=== PATIENT | male | born 2000 | race Caucasian/White ===

== ENCOUNTER 2022-03-07 17:00 | Emergency (ER) | payer OTHER, SELFPAY ==
--- NOTE | ~2022-03-07 | XR_ITS ---
EXAMINATION: XR ANKLE, RIGHT CLINICAL INFORMATION: Injury COMPARISON: None TECHNIQUE: AP, lateral, and mortise views of the right ankle. FINDINGS: There is soft tissue swelling around lateral malleolus. The bones and soft tissues are normal. No fracture. Alignment is anatomic. Joint spaces are maintained. No joint effusion. XR/XR ankle RT 2V IMPRESSION: No fracture or dislocation. Soft tissue swelling around lateral malleolus.
[2022-03-07 17:23] VITALS: BP 142/85; PULSE 79; RESP 18; TEMP 37.2; O2SAT 100; BMI 42.3
--- NOTE | 2022-03-07 18:12 | ED_ITS ---
HPI - Extremity Injury (Lower) General Chief Complaint: Extremity Injury, Lower Stated Complaint: R ankle INJ Time Seen by Provider: 03/07/22 18:04 Source: patient Mode of arrival: ambulatory Limitations: no limitations History of Present Illness HPI Narrative: 21-year-old male previously healthy here with right ankle pain after two inversion injuries yesterday while working. + swelling. No numbness, tingling, warmth or redness. No fevers or chills. Related Data Allergies Allergy/AdvReac Type Severity Reaction Status Date / Time Unable to Assess Allergy Verified 03/07/22 18:15 Review of Systems Review of Systems: Yes all other systems are reviewed and are negative Constitutional: Constitutional: Reports no additional constitutional complaints, Denies body ache(s), Denies chills, Denies fever(s), Denies heada katarina(s) and Denies weakness Eyes: Eyes: Reports no additional eye complaints and Denies change in vision ENT: Reports system reviewed and no additional complaints, except as documented, Denies dizziness, Denies headache(s), Denies nasal congestion, Denies nasal discharge and Denies neck pain Cardiovascular: Cardiovascular: Reports no additional cardiovascular complaints, Denies chest pain, Denies leg edema and Denies dyspnea Respiratory: Respiratory: Reports no additional respiratory complaints, Denies cough and Denies dyspnea Gastrointestinal: Gastrointestinal: Reports no additional gastrointestinal complaints, Denies abdominal pain, Denies diarrhea, Denies nausea and Denies vomiting Genitourinary: Genitourinary: Denies urinary incontinence Musculoskeletal: Musculoskeletal: Reports no additional musculoskeletal complaints, Denies back pain, Reports arthralgias, Reports joint swelling, Denies neck pain, Denies numbness and Denies tingling Integumentary/Breasts: Skin/Breast: Reports system reviewed and no additional complaints, except as docu and Denies rash Neurologic: Reports system reviewed and no additional complaints, except as documented, Denies Abnormal speech present, Denies dizziness, Denies headache(s), Denies numbness, Denies tingling and Denies weakness PMFSH Past Medical History Attestation statement: The following information was validated with the patient. Source: old records reviewed and nursing notes reviewed Social History Social History Advance Directives: No Advance Directives Information Provided: No Physical Exam Vital Signs: Vital Signs: Last Vital Signs Temp 98.9 F 03/07/22 17:23 Pulse 79 03/07/22 17:23 Resp 18 03/07/22 17:23 BP 142/85 H 03/07/22 17:23 Pulse Ox 100 03/07/22 17:23 O2 Del Method 03/07/22 17:23 BMI result Body Mass Index 42.3 Const: General: cooperative, healthy appearing, comfortable and no acute distress Orientation/consciousness: patient oriented x3 Limitations: no limitations HEENT: Head: Yes normal to inspection Ears: hearing grossly normal bilaterally General nose exam: Normal external nose present Face and sinus: Yes normal facial exam Mouth: Normal oral and palatal mucosa present Throat: Yes posterior oropharynx normal Eyes: General: appearance normal, both eyes and all related structures Pupils: Equal, round and reactive pupils present Neck: Neck: Yes normal visual inspection Chest: Chest palpation & inspection: normal inspection of the chest Resp: Effort & Inspection: normal respiratory effort Auscultation: clear to auscultation bilaterally Cardio: Rate: regular rate Rhythm: regular rhythm Peripheral pulses: Peripheral pulses 2+ throughout GI: Inspection: Yes normal to inspection Palpation (GI): Soft to palpation and nontender Auscultation: normal bowel sounds Back/Spine/Pelvis: Thoracic/Lumbar Spine: thoracic and lumbar spine normal to inspection Skin: General skin exam: no rashes or lesions noted Neuro: General: patient oriented x3, no focal motor deficits and normal sensation to monofilament Cranial nerves: Yes Equal, round and reactive pupils present Cognition (Neuro): normal cognition Speech: No Abnormal speech present Gait exam (Neuro): Normal gait present Motor exam (neuro): 5/5 motor strength present throughout Extrem: Other: There is swelling and tenderness to the lateral aspect of the right ankle. There is full range of motion. Neurovascular intact distally. Palpable DP and PT pulses. No foot pain. No posterior ankle pain. Negative Ruano sign General: Yes normal to inspection Course Course Course Narrative: X-ray show no acute finding. Likely sprain. Patient placed in air cast and given crutches for home. Reviewed rice. Reviewed worrisome signs and symptoms of when to return to the emergency department. Comfortable discharge home. MDM - Extremity Injury (Lower) MDM Narrative Medical decision making narrative: 21-year-old male here with right ankle pain after inversion injury yesterday. Will check x-rays Medical Records Attestation: I reviewed the patient's medical records. Lab Data Attestation: I reviewed the patient's lab results. Imaging Data Ankle x-ray: Attestation: I personally reviewed and interpreted this imaging study as follows: Radiologist's impression: Launch?Image [address] [address] XRay Report Signed Patient: Mahesh Lepe MR#: [id number] : 2000 Acct:[id number] Age/Sex: 21 / M ADM Date: 03/07/22 Loc: HO.ED Attending Dr: Ordering Physician: Generic ED Physician Date of Service: 03/07/22 Procedure(s): XR ankle RT 2V Accession Number(s): [id number] cc: Generic ED Physician~ EXAMINATION: XR ANKLE, RIGHT CLINICAL INFORMATION: Injury? COMPARISON: None? TECHNIQUE: AP, lateral, and mortise views of the right ankle. FINDINGS: There is soft tissue swelling around lateral malleolus. The bones and soft tissues are normal. No fracture. Alignment is anatomic. Joint spaces are maintained. No joint effusion.? XR/XR ankle RT 2V IMPRESSION: No fracture or dislocation. ? Soft tissue swelling around lateral malleolus. Procedures Procedure Narrative Procedure Narrative: Aircast and crutches Discharge Plan Discharge Clinical Impression: Ankle sprain and strain Patient Disposition: Home, Self-Care Instructions: Ankle Sprain (ED) Additional Instructions: Ice, elevation, rest Limit weight-bearing until able to bear weight without experiencing pain Take Motrin or Tylenol as needed for pain For persistent symptoms follow-up with work [facility] at [phone] Referrals: Physician,Unknown J [Primary Care Provider] - Stand Alone Forms: Work/School Release
== END 2022-03-07 19:19 | disposition home or self-care (01) ==
PROVIDERS: Emergency Provider Student in an Organized Health Care Education/Training Program
DX: S93.401A Sprain of unspecified ligament of right ankle, initial encounter (principal); X58.XXXA Exposure to other specified factors, initial encounter; Y93.9 Activity, unspecified; Y92.9 Unspecified place or not applicable; Y99.9 Unspecified external cause status
CPT/HCPCS: 73600; 99282; 99283

== ENCOUNTER 2024-04-02 00:46 | Emergency (ER) | payer MEDICAID, SELFPAY ==
[2024-04-02 00:50] VITALS: BP 129/66; PULSE 74; RESP 18; TEMP 36.8; O2SAT 98; BMI 46.2
[2024-04-02 01:08] LABS: MANUAL DIFF FLAG NO
[2024-04-02 01:09] LABS: Basophils Percent Auto 0.3 % (0-2); Eosinophils Absolute Auto 0.1 X10*3/uL (0.0-0.4); Eosinophils Percent Auto 1.1 % (0-4); Hematocrit 45.5 % (42.0-52.0); Hemoglobin 15.5 g/dl (14.0-18.0); Imm Gran Abs Auto 0.05 X10*3/uL (0.00-0.03); Imm Gran Pct Auto 0.4 % (0.0-0.4); Lymphocytes Absolute Auto 1.9 X10*3/uL (1.2-4.9); Lymphocytes Percent Auto 16.2 % (20-40); Mean Corpuscular HGB Conc 34.1 g/dl (31.0-36.0); Mean Corpuscular Hemoglobin 28.9 pg (27.0-33.0); Mean Corpuscular Volume 84.9 fL (80.0-98.0); Mean Platelet Volume 9.7 fL (9.4-12.4); Monocytes Absolute Auto 0.6 X10*3/uL (0.1-1.2); Monocytes Percent Auto 5.2 % (2-11); Neutrophils Absolute Auto 8.8 x10*3/uL (2.0-8.3); Neutrophils Percent Auto 76.8 % (45-73); Platelet Count 322 X10*3/uL (160-400); Red Blood Count 5.36 X10*6/uL (4.60-5.80); Red Cell Distribution Width 11.9 % (11.0-16.0); White Blood Count 11.4 X10*3/uL (4.8-10.8)
[2024-04-02 01:18] LABS: Appearance Urine Clear; Color Urine Yellow; Glucose Urine UA Negative (Negative); Leukocyte Esterase Urine Negative (Negative); Nitrite Urine Negative (Negative); PH 7.5 (5.0-9.0); Specific Gravity - Urine 1.025 (1.005-1.025); Urine Blood Negative (Negative); Urine Ketones Negative (Negative); Urine Protein Trace mg/dL (Neg-Trace)
[2024-04-02 01:20] LABS: Bacteria Urine None Seen (None Seen); Hyaline Casts Urine 0-2 /LPF (0-2); RBC Urine 0-2 /HPF (0-2); Squamous Epithelial Cell Urine 0-2 /HPF (0-2); WBC Urine 0-5 /HPF (0-5)
[2024-04-02 01:25] LABS: Alanine Aminotransferase 36 U/L (0-40); Albumin Level 4.3 g/dL (3.5-5.0); Alkaline Phosphatase 73 U/L (39-117); Anion Gap 15 (12-20); Aspartate Amino Transferase 19 U/L (5-37); Bilirubin Total 0.3 mg/dL (0.0-1.0); Blood Urea Nitrogen 12 mg/dL (9-16); Calcium 9.2 mg/dL (8.4-10.2); Carbon Dioxide 23 mmol/L (22-29); Chloride 107 mmol/L (96-108); Creatinine Clr Calc Pharmacy 205.9; Estimated Glomerular Filt Rate > 60; Glucose Random 97 mg/dL (60-115); Lipase 19 U/L (8-78); Potassium 3.4 mmol/L (3.3-5.1); Sodium 142 mmol/L (135-145)
[2024-04-02 02:19] VITALS: BP 140/73; PULSE 63; RESP 14; TEMP 36.8; O2SAT 98
--- NOTE | 2024-04-02 02:31 | ED.NAVMDI ---
HPI - Nausea/Vomiting/Diarrhea General Chief complaint: Abdominal Pain Stated complaint: throwing up blood Time Seen by Provider: 04/02/24 02:17 Source: patient Mode of arrival: ambulatory Limitations: no limitations History of Present Illness ED Provider: RENATA MONK Narrative: 23 yo male with no sig PMH other than self diagnosed vomiting/diarrhea that is brought on by stress of any kind. He notes he felt weak, dizzy this AM not himself had multiple episodes of n/v/d that is not unusual for him. He then noted dark blood in vomit x 1 after he had been vomiting for a while. He has not had this before. He takes no thinners or NSAIDs. He does not have a PCP. He is not on antacids. MD elicited complaint: nausea, vomiting and diarrhea Pertinent past history: other Onset (ago): day(s) (1) Description of vomiting: watery and coffee grounds Description of diarrhea: watery Associated nausea: Yes Location of pain: none Severity: moderate Exacerbating factors: eating Relieving factors: none Context: other (similar episodes) Associated symptoms: loss of appetite, malaise, nausea/vomiting and weakness Treatment prior to arrival: other (tried pepto bismol without relief) Related Data Previous Rx's ?Medication ?Instructions ?Recorded omeprazole 20 mg capsule,delayed 20 mg PO DAILY #14 caps 04/02/24 release ondansetron 4 mg disintegrating 4 mg PO Q8H PRN nausea and 04/02/24 tablet vomiting #20 tabs Allergies Allergy/AdvReac Type Severity Reaction Status Date / Time No Known Allergies Allergy Verified 04/02/24 00:54 Review of Systems Review of Systems: Constitutional : No Weight loss, No Fever, No Chills ENT/Mouth : No sore throat, No Rhinorrhea Eyes: No Swelling, No Redness Cardiovascular : No Chest Pain, No SOB, NoEdema Respiratory : No Cough, No Sputum, No Wheezing Gastrointestinal : Positive Nausea, Positive Vomiting, positive Diarrhea, no abdominal Pain, No Hematochezia, No Melena Genitourinary : No Dysuria, No Urinary Frequency, No Hematuria, No Urgency Musculoskeletal : No joint pain, No Myalgias, No Joint Swelling Skin : No Skin Lesions, No rash Neuro : No Weakness, No Numbness, No Dizziness, No Headache Psych : No Anxiety/Panic, No Depression All other systems reviewed and are negative. Gastrointestinal: Gastrointestinal: Reports nausea PMFSH Past Medical History Attestation statement: The following information was validated with the patient. Source: old records reviewed Medical History No pertinent past medical history Social History Social History (Updated 04/02/24 @ 02:54 by Kaity Aldana DO) Alcohol intake: never Patient Tobacco Use Status: Never used Tobacco Substance Use Type: Marijuana Physical Exam Vital Signs: Vital Signs: Last Vital Signs Temp 98.2 F 04/02/24 02:19 Pulse 63 04/02/24 02:19 Resp 14 04/02/24 02:19 BP 140/73 H 04/02/24 02:19 Pulse Ox 98 04/02/24 02:19 O2 Del Method Room Air 04/02/24 02:19 BMI result Body Mass Index 46.2 Appearance: Alert. Oriented X3. No acute distress. Eyes: Pupils equal, round and reactive to light. ENT: Pharynx normal. Neck: Normal inspection. Neck supple. CVS: Normal heart rate and rhythm. Pulses normal. Respiratory: No respiratory distress. Breath sounds normal. Abdomen: Soft and nontender. Skin: Skin warm and dry. Normal skin color. Normal skin turgor. Extremities: No lower extremity edema. No calf ttp Neuro: Oriented X 3. No motor deficit. No sensory deficit. Procedures EJ/Peripheral Line Arm R: Time Out Performed: Yes Skin Cleansed in Sterile Fashion: Yes Size (gauge): 20 IV Secured and Dressing Applied: Yes Patient Tolerated Procedure: well and no complications Medical Decision Making Medical Decision Making MDM Narrative: 23 yo male otherwise healthy here with recurrent bouts in past with n/v/d with certain triggers same episode today with n/v/d did have a lot of vomiting then noted maroon vomiting - he is not toxic, benign abdomen labs from triage very reassuring he has no risk factors no NSAID use, no hx of ETOH abuse - no lower GIB symptoms. At this time will hydrate, start on PPI x 2 weeks, zofran. Refer to GI. suspect gastritis and MW tear. Differential Diagnosis Differential Diagnoses: The differential diagnosis associated with the presentation includes gastritis MW tear, IBS, stress Admission/Observation Consideration of admission/observation: Escalation of care including admission/observation considered H/H stable, VS stable, no lower GIB symptoms, one time bleed BUN stable not toxic tolerating PO manage with outpatient work up Lab Data MDM Lab Attestation statement: I reviewed the patient's lab results. 04/02/24 01:05 04/02/24 01:05 Labs: Lab Results 04/02/24 04/02/24 Range/Units 01:05 01:10 WBC 11.4 H (4.8-10.8) X10*3/uL RBC 5.36 (4.60-5.80) X10*6/uL Hgb 15.5 (14.0-18.0) g/dl Hct 45.5 (42.0-52.0) % MCV 84.9 (80.0-98.0) fL MCH 28.9 (27.0-33.0) pg MCHC 34.1 (31.0-36.0) g/dl RDW 11.9 (11.0-16.0) % Plt Count 322 (160-400) X10*3/uL MPV 9.7 (9.4-12.4) fL Immature Gran % (Auto) 0.4 (0.0-0.4) % Neut % (Auto) 76.8 H (45-73) % Lymph % (Auto) 16.2 L (20-40) % [place] % (Auto) 5.2 (2-11) % Eos % (Auto) 1.1 (0-4) % Baso % (Auto) 0.3 (0-2) % Lymph # (Auto) 1.9 (1.2-4.9) X10*3/uL [place] # (Auto) 0.6 (0.1-1.2) X10*3/uL Eos # (Auto) 0.1 (0.0-0.4) X10*3/uL Baso # (Auto) 0.0 (0.0-0.2) X10*3/uL Abs Immat Gran (auto) 0.05 H (0.00-0.03) X10*3/uL Absolute Neuts (auto) 8.8 H (2.0-8.3) x10*3/uL Absolute Nucleated RBC 0.000 (0.0-0.012) X10*3/uL Nucleated RBC % (auto) 0.0 (0.0-0.2) /100WBC Sodium 142 (135-145) mmol/L Potassium 3.4 (3.3-5.1) mmol/L Chloride 107 (96-108) mmol/L Carbon Dioxide 23 (22-29) mmol/L Anion Gap 15 (12-20) BUN 12 (9-16) mg/dL Creatinine 0.92 (0.5-1.4) mg/dL Estim Creat Clear Calc 205.9 Estimated GFR > 60 Random Glucose 97 (60-115) mg/dL Calcium 9.2 (8.4-10.2) mg/dL Total Bilirubin 0.3 (0.0-1.0) mg/dL AST 19 (5-37) U/L ALT 36 (0-40) U/L Alkaline Phosphatase 73 (39-117) U/L Total Protein 7.0 (6.5-8.0) g/dL Albumin 4.3 (3.5-5.0) g/dL Lipase 19 (8-78) U/L Urine Color Yellow Urine Appearance Clear Urine pH 7.5 (5.0-9.0) Ur Specific [place] 1.025 (1.005-1.025) Urine Protein Trace (Neg-Trace) mg/dL Urine Glucose (UA) Negative (Negative) mg/dL Urine Ketones Negative (Negative) mg/dL Urine Blood Negative (Negative) Urine Nitrite Negative (Negative) Ur Leukocyte Esterase Negative (Negative) Urine RBC 0-2 (0-2) /HPF Urine WBC 0-5 (0-5) /HPF Ur Squamous Epith Cells 0-2 (0-2) /HPF Urine Bacteria None Seen (None Seen) Hyaline Casts 0-2 (0-2) /LPF Prescription Management I considered prescription management with: Other Discharge Plan Discharge Clinical Impression: Nausea & vomiting Qualifiers: Vomiting type: unspecified Qualified Code(s): R11.2 - Nausea with vomiting, unspecified Gastritis Qualifiers: Gastritis type: unspecified gastritis Chronicity: acute Gastritis bleeding: with bleeding Qualified Code(s): K29.01 - Acute gastritis with bleeding Patient Disposition: Home, Self-Care Instructions: Gastritis (ED), Acute Nausea and Vomiting (ED) Additional Instructions: return for worsening pain and bleeding avoid aspirin, motrin, aleve, ibuprofen TYLENOL is okay your stool will turn black from the pepto take meds for 2 weeks follow up with GI doctor Prescriptions: New ondansetron 4 mg tablet,disintegrating 4 mg PO Q8H PRN (Reason: nausea and vomiting) Qty: 20 0RF omeprazole 20 mg capsule,delayed release(DR/EC) 20 mg PO DAILY Qty: 14 0RF Referrals: Hellen Hollingsworth MD [Physician] - (call to schedule appointment) Stand Alone Forms: Work/School Release Print Language: Ugandan
[2024-04-02] MEDS: 0.9 % Sodium Chloride 1,000 ML 999 ML IV (02:53)
[2024-04-02] MEDS: Famotidine/PF 20 MG/2 ML VIAL IVPUSH (02:53)
[2024-04-02] MEDS: ondansetron HCL 4 MG/2 ML VIAL IVPUSH (02:53)
--- NOTE | 2024-04-02 03:00 | PC.NURSE ---
Pt ca&ox4, no signs of distress. Pt reports 3/10 abd pain Pt medicated per mar. Plan of care ongoing.
[2024-04-02 04:00] VITALS: BP 140/73; PULSE 63; RESP 14; TEMP 36.8; O2SAT 98
== END 2024-04-02 04:00 | disposition home or self-care (01) ==
PROVIDERS: Emergency Provider Emergency Medicine
DX: K29.01 Acute gastritis with bleeding (principal); R11.2 Nausea with vomiting, unspecified
CPT/HCPCS: 36415; 80053; 81001; 83690; 85025; 96361; 96374; 96375; 99284; J2405

== ENCOUNTER 2024-04-04 01:56 | Emergency (ER) | payer MEDICAID, SELFPAY ==
[2024-04-04 02:17] VITALS: BP 117/59; BP 131/76; PULSE 61; PULSE 70; RESP 16; TEMP 36.9; O2SAT 96; O2SAT 97; BMI 46.2
--- NOTE | 2024-04-04 02:52 | ED_ITS ---
HPI - Nausea/Vomiting/Diarrhea General Chief complaint: Nausea/Vomiting/Diarrhea Stated complaint: n/v Time Seen by Provider: 04/04/24 02:52 Source: patient Mode of arrival: ambulatory Limitations: no limitations History of Present Illness ED Provider: shamir MONK Narrative: Patient complaining nausea vomiting for last 3 days vomited 2 times was seen here 2 days ago on prescribed medications workup was negative patient unable to get the prescription filled vomited 2 times with severe nausea had a loose bowel no fever no chills Related Data Previous Rx's ?Medication ?Instructions ?Recorded omeprazole 20 mg capsule,delayed 20 mg PO DAILY #14 caps 04/02/24 release ondansetron 4 mg disintegrating 4 mg PO Q8H PRN nausea and 04/02/24 tablet vomiting #20 tabs Allergies Allergy/AdvReac Type Severity Reaction Status Date / Time No Known Allergies Allergy Verified 04/04/24 02:24 Review of Systems Review of Systems: Yes all other systems are reviewed and are negative [facility] Past Medical History Medical History No pertinent past medical history Social History Social History Alcohol intake: never Patient Tobacco Use Status: Never used Tobacco Smoked in Last 30 Days: No Substance Use Type: Marijuana Advance Directives: No Advance Directives Information Provided: Yes Physical Exam Vital Signs: Vital Signs: Last Vital Signs Temp 98.1 F 04/04/24 05:24 Pulse 92 04/04/24 05:24 Resp 18 04/04/24 05:24 BP 136/74 04/04/24 05:24 Pulse Ox 99 04/04/24 05:24 O2 Del Method Room Air 04/04/24 05:24 BMI result Body Mass Index 46.2 Appearance: Alert. Oriented X3. No acute distress. Eyes: No pallor or icterus ENT: Pharynx normal. Oral Mucosa moist Neck: Normal inspection. Neck supple. CVS: Normal heart rate and rhythm. Pulses normal. Respiratory: No respiratory distress. Equal air entry bilateral, no wheezing/rales/rhonchi Abdomen: Soft and nontender. Bowel sounds are present, no mass palpable, no CVA tenderness Skin: Skin warm and dry. Normal skin color. Normal skin turgor. Extremities: No lower extremity edema. No calf tenderness Neuro: Oriented X 3. No motor deficit. No sensory deficit.No cerebellar signs , cranial nerves II-XII intact Medications Administered Discontinued Medications Generic Name Dose Route Start Last Admin Trade Name Freq PRN Reason Stop Dose Admin Sodium Chloride 1,000 mls @ 999 mls/hr 04/04/24 03:06 04/04/24 04:20 Ns IV 04/04/24 04:06 Infused .Q1H1M ONE Infusion Medical Decision Making Medical Decision Making [facility] Narrative: Patient with viral gastroenteritis feeling much better after IV fluids and no Zofran discharge patient home taking p.o. fluids in the ER Discharge Plan Discharge Clinical Impression: Acute nausea with nonbilious vomiting Patient Disposition: Home, Self-Care Instructions: Acute Nausea and Vomiting (ED) Additional Instructions: Drink plenty of fluids Take medication as prescribed during the last visit Prescriptions: No Action ondansetron 4 mg tablet,disintegrating 4 mg PO Q8H PRN (Reason: nausea and vomiting) Qty: 20 0RF omeprazole 20 mg capsule,delayed release(DR/EC) 20 mg PO DAILY Qty: 14 0RF Print Language: Bulgarian
[2024-04-04] MEDS: 0.9 % Sodium Chloride 1,000 ML 999 ML IV (03:29)
[2024-04-04 05:24] VITALS: BP 136/74; PULSE 92; RESP 18; TEMP 36.7; O2SAT 99
[2024-04-04 06:22] VITALS: BP 126/72; PULSE 84; RESP 16; TEMP 36.9; O2SAT 99
== END 2024-04-04 06:20 | disposition home or self-care (01) ==
PROVIDERS: Emergency Provider Internal Medicine
DX: R11.2 Nausea with vomiting, unspecified (principal)
CPT/HCPCS: 96360; 99284

== ENCOUNTER 2024-04-13 15:10 | Emergency (ER) | payer OTHER, SELFPAY ==
[2024-04-13 15:27] VITALS: BP 135/80; PULSE 73; RESP 20; TEMP 37.1; O2SAT 97; BMI 46.2
--- NOTE | 2024-04-13 15:41 | ED.MEDCLEAR ---
HPI - Medical Clearance General Chief complaint: Medical Clearance Stated complaint: Needs clearance to go back to work Time Seen by Provider: 04/13/24 15:32 Source: patient Mode of arrival: ambulatory Limitations: no limitations History of Present Illness ED Provider: Cecelia Dave APRN HPI Narrative: 23-year-old male with no known medical history presents the ER seeking a note to return to work. Patient reports in the last 2 weeks he has had a call out of work 3 times due to abdominal pain. Of note he was seen in this emergency room on April 02 as well as April 04 for gastritis. He has been taking a PPI and is feeling much better. Denies any abdominal pain today. No vomiting, diarrhea, constipation, fevers or chills. He has no complaints and would like a note to return to work. Tells me that this is a requirement of his place of employment. He does not currently have a primary care doctor. Related Information Previous Rx's ?Medication ?Instructions ?Recorded omeprazole 20 mg capsule,delayed 20 mg PO DAILY #14 caps 04/02/24 release ondansetron 4 mg disintegrating 4 mg PO Q8H PRN nausea and 04/02/24 tablet vomiting #20 tabs Allergies Allergy/AdvReac Type Severity Reaction Status Date / Time No Known Allergies Allergy Verified 04/13/24 15:30 Review of Systems Review of Systems: Yes all other systems are reviewed and are negative Constitutional: Constitutional: Reports no additional constitutional complaints, Denies body ache(s), Denies chills, Denies fever(s), Denies headache(s) and Denies weakness Eyes: Eyes: Reports no additional eye complaints and Denies change in vision ENT: Reports system reviewed and no additional complaints, except as documented, Denies dizziness, Denies headache(s), Denies nasal congestion, Denies nasal discharge and Denies neck pain Cardiovascular: Cardiovascular: Reports no additional cardiovascular complaints, Denies chest pain, Denies leg edema and Denies dyspnea Respiratory: Respiratory: Reports no additional respiratory complaints, Denies cough and Denies dyspnea Gastrointestinal: Gastrointestinal: Reports no additional gastrointestinal complaints, Denies abdominal pain, Denies diarrhea, Denies nausea and Denies vomiting Genitourinary: Genitourinary: Denies urinary incontinence Musculoskeletal: Musculoskeletal: Reports no additional musculoskeletal complaints, Denies back pain, Denies arthralgias, Denies joint swelling, Denies neck pain, Denies numbness and Denies tingling Integumentary/Breasts: Skin/Breast: Reports system reviewed and no additional complaints, except as docu and Denies rash Neurologic: Reports system reviewed and no additional complaints, except as documented, Denies Abnormal speech present, Denies dizziness, Denies headache(s), Denies numbness, Denies tingling and Denies weakness PMF Past Medical History Attestation statement: The following information was validated with the patient. Source: old records reviewed and nursing notes reviewed Medical History No pertinent past medical history Social History Social History Alcohol intake: never Patient Tobacco Use Status: Never used Tobacco Substance Use Type: Marijuana Do you have a plan to hurt others: No Plan Physical Exam Vital Signs: Vital Signs: Last Vital Signs Temp 98.7 F 04/13/24 15:27 Pulse 73 04/13/24 15:27 Resp 20 04/13/24 15:27 BP 135/80 04/13/24 15:27 Pulse Ox 97 04/13/24 15:27 O2 Del Method Room Air 04/13/24 15:27 BMI result Body Mass Index 46.2 Const: General: cooperative, healthy appearing, comfortable and no acute distress Orientation/consciousness: patient oriented x3 Limitations: no limitations HEENT: Head: Yes normal to inspection Ears: hearing grossly normal bilaterally General nose exam: Normal external nose present Face and sinus: Yes normal facial exam Mouth: Normal oral and palatal mucosa present Throat: Yes posterior oropharynx normal Eyes: General: appearance normal, both eyes and all related structures Pupils: Equal, round and reactive pupils present Neck: Neck: Yes normal visual inspection Chest: Chest palpation & inspection: normal inspection of the chest Resp: Effort & Inspection: normal respiratory effort Auscultation: clear to auscultation bilaterally Cardio: Rate: regular rate Rhythm: regular rhythm Peripheral pulses: Peripheral pulses 2+ throughout GI: Inspection: Yes normal to inspection Palpation (GI): Soft to palpation and nontender Auscultation: normal bowel sounds Back/Spine/Pelvis: Thoracic/Lumbar Spine: thoracic and lumbar spine normal to inspection Skin: General skin exam: no rashes or lesions noted Neuro: General: patient oriented x3, no focal motor deficits and normal sensation to monofilament Cranial nerves: Yes Equal, round and reactive pupils present Cognition (Neuro): normal cognition Speech: No Abnormal speech present Gait exam (Neuro): Normal gait present Motor exam (neuro): 5/5 motor strength present throughout Extrem: General: Yes normal to inspection Medical Decision Making Medical Decision Making MDM Narrative: 23-year-old male with no known medical history presents the ER seeking a note to return to work. Patient reports in the last 2 weeks he has had a call out of work 3 times due to abdominal pain. Of note he was seen in this emergency room on April 02 as well as April 04 for gastritis. He has been taking a PPI and is feeling much better. Denies any abdominal pain today. No vomiting, diarrhea, constipation, fevers or chills. He has no complaints and would like a note to return to work. Tells me that this is a requirement of his place of employment. He does not currently have a primary care doctor. Exam is benign. Abdomen with no focal tenderness. Vitals stable. Will provide note to return to work Differential Diagnosis Differential Diagnoses: The differential diagnosis associated with the presentation includes resolving gastritis Admission/Observation Consideration of admission/observation: Escalation of care including admission/observation considered Resolved gastritis with no need to pursue additional imaging or labs and or admission Tests considered The following testing was considered but not selected: No current complaints suggest need for repeat labs are abdominal imaging Discharge Plan Discharge Clinical Impression: Normal exam Patient Disposition: Home, Self-Care Instructions: Normal Exam (ED) Prescriptions: No Action ondansetron 4 mg tablet,disintegrating 4 mg PO Q8H PRN (Reason: nausea and vomiting) Qty: 20 0RF omeprazole 20 mg capsule,delayed release(DR/EC) 20 mg PO DAILY Qty: 14 0RF Referrals: Physician,None [Primary Care Provider] - 1 week Stand Alone Forms: Work/School Release Print Language: Lithuanian
[2024-04-13 15:56] VITALS: BP 135/80; PULSE 73; RESP 20; TEMP 37.1; O2SAT 97
== END 2024-04-13 15:56 | disposition home or self-care (01) ==
PROVIDERS: Emergency Provider Emergency Medicine
DX: Z04.89 Encounter for examination and observation for other specified reasons (principal)
CPT/HCPCS: 99282

== ENCOUNTER 2024-05-07 12:21 | Emergency (ER) | payer OTHER, SELFPAY ==
--- NOTE | ~2024-05-07 | US_ITS ---
EXAMINATION: US ABDOMEN LIMITED CLINICAL INFORMATION: GB, CBD. COMPARISON: None available. TECHNIQUE: Real-time imaging of the right upper quadrant abdominal viscera. FINDINGS: GALLBLADDER: Normal. The gallbladder is physiologically distended without evidence of stones, sludge, polyps, wall thickening or pericholecystic fluid. COMMON BILE DUCT: Normal in caliber measuring 0.3 cm in diameter. US/US abdomen limited IMPRESSION: Unremarkable examination. Electronically signed by: Judy Tejada MD 05/07/2024 05:01 PM EDT
[2024-05-07 12:43] VITALS: BP 128/73; PULSE 82; RESP 16; TEMP 37.2; O2SAT 96; BMI 48.7
--- NOTE | 2024-05-07 12:43 | ED_ITS ---
HPI - General Adult General Stated complaint: Abd pain Related Data Previous Rx's ?Medication ?Instructions ?Recorded omeprazole 20 mg capsule,delayed 20 mg PO DAILY #14 caps 04/02/24 release ondansetron 4 mg disintegrating 4 mg PO Q8H PRN nausea and 04/02/24 tablet vomiting #20 tabs Allergies Allergy/AdvReac Type Severity Reaction Status Date / Time No Known Allergies Allergy Verified 04/13/24 15:30 PMFSH Past Medical History Medical History No pertinent past medical history Social History Social History Alcohol intake: never Patient Tobacco Use Status: Never used Tobacco Substance Use Type: Marijuana Course Course Course Narrative: RME, this is a rapid medical exam performed by Lawson Knutson please refer to primary provider for complete H&P- 24 year old male presents for evaluation of upper abdominal pain. This is his 4th ER visit last few weeks for similar pain. He was diagnosed with gastritis and has a GI appointment tomorrow. Patient endorses pain worse after eating, decreased appetite, nausea and vomiting. He also endorses diarrhea. Plan for labs and gallbladder ultrasound Discharge Plan Discharge Prescriptions: No Action ondansetron 4 mg tablet,disintegrating 4 mg PO Q8H PRN (Reason: nausea and vomiting) Qty: 20 0RF omeprazole 20 mg capsule,delayed release(DR/EC) 20 mg PO DAILY Qty: 14 0RF Print Language: [place]
[2024-05-07 13:39] LABS: MANUAL DIFF FLAG NO
[2024-05-07 13:41] LABS: Appearance Urine Clear; Color Urine Dark Yellow; Glucose Urine UA Negative (Negative); Leukocyte Esterase Urine Trace (Negative); Nitrite Urine Negative (Negative); Specific Gravity - Urine >= 1.030 (1.005-1.025); UMIC TRIGGER UACC YES; Urine Blood Negative (Negative); Urine Ketones 15 mg/dL (Negative); Urine Protein Trace mg/dL (Neg-Trace)
[2024-05-07 13:41] LABS: Basophils Absolute Auto 0.1 X10*3/uL (0.0-0.2); Basophils Percent Auto 0.5 % (0-2); Eosinophils Absolute Auto 0.3 X10*3/uL (0.0-0.4); Eosinophils Percent Auto 3.2 % (0-4); Hematocrit 48.9 % (42.0-52.0); Hemoglobin 16.6 g/dl (14.0-18.0); Imm Gran Abs Auto 0.04 X10*3/uL (0.00-0.03); Imm Gran Pct Auto 0.4 % (0.0-0.4); Lymphocytes Absolute Auto 1.7 X10*3/uL (1.2-4.9); Lymphocytes Percent Auto 16.7 % (20-40); Mean Corpuscular HGB Conc 33.9 g/dl (31.0-36.0); Mean Corpuscular Hemoglobin 29.3 pg (27.0-33.0); Mean Corpuscular Volume 86.2 fL (80.0-98.0); Mean Platelet Volume 9.5 fL (9.4-12.4); Monocytes Absolute Auto 0.5 X10*3/uL (0.1-1.2); Monocytes Percent Auto 5.4 % (2-11); Neutrophils Absolute Auto 7.3 x10*3/uL (2.0-8.3); Neutrophils Percent Auto 73.8 % (45-73); Platelet Count 358 X10*3/uL (160-400); Red Blood Count 5.67 X10*6/uL (4.60-5.80); White Blood Count 9.9 X10*3/uL (4.8-10.8)
[2024-05-07 13:43] LABS: Bacteria Urine None Seen (None Seen); Hyaline Casts Urine 0-2 /LPF (0-2); RBC Urine 0-2 /HPF (0-2); Squamous Epithelial Cell Urine 0-2 /HPF (0-2); WBC Urine 0-5 /HPF (0-5)
[2024-05-07 14:01] LABS: Alanine Aminotransferase 65 U/L (0-40); Albumin Level 4.4 g/dL (3.5-5.0); Alkaline Phosphatase 80 U/L (39-117); Anion Gap 11 (12-20); Aspartate Amino Transferase 37 U/L (5-37); Bilirubin Total 0.6 mg/dL (0.0-1.0); Blood Urea Nitrogen 12 mg/dL (9-16); Calcium 10.3 mg/dL (8.4-10.2); Carbon Dioxide 28 mmol/L (22-29); Chloride 108 mmol/L (96-108); Creatinine Clr Calc Pharmacy 160.5; Estimated Glomerular Filt Rate > 60; Glucose Random 94 mg/dL (60-115); Lipase 17 U/L (8-78); Potassium 4.4 mmol/L (3.3-5.1); Sodium 143 mmol/L (135-145); Total Protein 7.6 g/dL (6.5-8.0)
[2024-05-07 17:18] VITALS: BP 140/79; PULSE 64; RESP 20; TEMP 37.2; O2SAT 97
--- NOTE | 2024-05-07 20:00 | PC.NURSE ---
Pt stated leaving, requested to stay by this RN, pt refused, stated will FU with provtimmyder in am.
== END 2024-05-07 20:08 | disposition left against medical advice (07) ==
LOC: HO.ED 20:03
PROVIDERS: Physician Assistant; Emergency Provider Emergency Medicine
DX: R10.11 Right upper quadrant pain (principal); Z53.21 Procedure and treatment not carried out due to patient leaving prior to being seen by health care provider
CPT/HCPCS: 36415; 76705; 80053; 81001; 83690; 85025; 99281; 99282

== ENCOUNTER 2024-05-13 08:14 | Emergency (ER) | payer OTHER, SELFPAY ==
[2024-05-13 08:28] VITALS: BP 116/74; PULSE 84; RESP 18; TEMP 36.6; O2SAT 97; BMI 46.0
[2024-05-13 08:42] LABS: MANUAL DIFF FLAG NO
[2024-05-13 08:53] LABS: Basophils Percent Auto 0.4 % (0-2); Eosinophils Absolute Auto 0.2 X10*3/uL (0.0-0.4); Eosinophils Percent Auto 2.8 % (0-4); Hematocrit 46.8 % (42.0-52.0); Hemoglobin 15.8 g/dl (14.0-18.0); Imm Gran Abs Auto 0.03 X10*3/uL (0.00-0.03); Imm Gran Pct Auto 0.4 % (0.0-0.4); Lymphocytes Absolute Auto 1.9 X10*3/uL (1.2-4.9); Lymphocytes Percent Auto 23.6 % (20-40); Mean Corpuscular HGB Conc 33.8 g/dl (31.0-36.0); Mean Corpuscular Hemoglobin 28.7 pg (27.0-33.0); Mean Corpuscular Volume 84.9 fL (80.0-98.0); Mean Platelet Volume 9.7 fL (9.4-12.4); Monocytes Absolute Auto 0.6 X10*3/uL (0.1-1.2); Monocytes Percent Auto 7.4 % (2-11); Neutrophils Absolute Auto 5.2 x10*3/uL (2.0-8.3); Neutrophils Percent Auto 65.4 % (45-73); Platelet Count 327 X10*3/uL (160-400); Red Blood Count 5.51 X10*6/uL (4.60-5.80); Red Cell Distribution Width 11.7 % (11.0-16.0)
[2024-05-13 09:06] LABS: Alanine Aminotransferase 56 U/L (0-40); Albumin Level 4.3 g/dL (3.5-5.0); Alkaline Phosphatase 77 U/L (39-117); Anion Gap 15 (12-20); Aspartate Amino Transferase 24 U/L (5-37); Bilirubin Direct 0.2 mg/dL (0.0-0.5); Bilirubin Total 0.6 mg/dL (0.0-1.0); Blood Urea Nitrogen 9 mg/dL (9-16); Calcium 9.9 mg/dL (8.4-10.2); Carbon Dioxide 23 mmol/L (22-29); Chloride 108 mmol/L (96-108); Creatinine Clr Calc Pharmacy 171.8; Estimated Glomerular Filt Rate > 60; Glucose Random 98 mg/dL (60-115); Lipase 33 U/L (8-78); Potassium 3.7 mmol/L (3.3-5.1); Sodium 142 mmol/L (135-145); Total Protein 7.1 g/dL (6.5-8.0)
--- NOTE | 2024-05-13 09:17 | ED_ITS ---
HPI - Abdominal Pain General Chief Complaint: Abdominal Pain Stated Complaint: Stomach ulcers, nausea Time Seen by Provider: 05/13/24 08:55 Source: patient Mode of arrival: ambulatory Limitations: no limitations History of Present Illness ED Provider: Dr. Daniele Aviles HPI narrative: 24-year-old male with a history of recurrent abdominal pain associated with nausea and vomiting, patient's 5th visit here in the emergency department since 04/02/2024 who presents for evaluation of abdominal pain, nausea, vomiting and diarrhea. Patient states he has had intermittent symptoms for 1 month. He states that he did see a GI doctor 4 days prior and was started on omeprazole and sucralfate for possible gastric ulcers. Patient states that he was scheduled for an endoscopy next month. Patient was currently complaining of abdominal pain. He points to his lower abdomen when asked to localize the pain. He states the pain is a constant, dull ache which is 4/10 at its worst. Patient states that he has had 1-2 episodes of vomiting per day. He states he has had 1-2 loose diarrheal stools for day with no blood or dark stools. He denied fever or chills. He denied chest pain, shortness of breath or dyspnea on exertion. Patient's states that despite being started on the new medications by his GI doctor he is not feeling better, therefore he came to the emergency department for evaluation. Patient states that he was smoking marijuana daily but stopped but stopped after an ER visit where he was told that his symptoms may be caused by cannabis cyclic vomiting syndrome. Patient states however he did smoke marijuana 2 days ago. Patient did have an abdominal ultrasound on 05/07/2024 which was unremarkable. Related Data Previous Rx's ?Medication ?Instructions ?Recorded omeprazole 20 mg capsule,delayed 20 mg PO DAILY #14 caps 04/02/24 release ondansetron 4 mg disintegrating 4 mg PO Q8H PRN nausea and 04/02/24 tablet vomiting #20 tabs ondansetron 4 mg disintegrating 4 mg PO Q6-8H PRN nausea and 05/13/24 tablet vomiting #20 tabs Allergies Allergy/AdvReac Type Severity Reaction Status Date / Time No Known Allergies Allergy Verified 05/13/24 08:29 Review of Systems Review of Systems Yes all other systems are reviewed and are negative [facility] Past Medical History [facility] Narrative: Social history: He denies tobacco use. He denies alcohol use. He was a daily marijuana user but has stopped after being told that he may have cannabis hyperemesis syndrome, but recently smokes marijuana several days prior. Medical History No pertinent past medical history Social History Social History Alcohol intake: never Patient Tobacco Use Status: Never used Tobacco Smoked in Last 30 Days: No Use of substances other than those prescribed or required for medical reasons: Yes Substance Use Type: Marijuana Substance Use Frequency: Daily Last Used Substance: Days (ago) Advance Directives: No Advance Directives Information Provided: No Do you have a plan to hurt others: No Plan Physical Exam ED Vital Signs: Vital Signs - 24 hr 05/13/24 08:28 05/13/24 12:16 Temperature 97.8 F 98.2 F Pulse Rate 84 73 Respiratory Rate 18 16 Blood Pressure 116/74 121/81 Pulse Oximetry 97 97 Oxygen Delivery Method Room Air Room Air BMI result Body Mass Index 46.0 Vital signs were normal Exam: General: Awake, alert in no distress Head: Normocephalic, atraumatic EENT: PERRL, Lids normal, sclera normal, conjunctiva normal, nose normal , ears normal, throat without erythema or exudates Neck: Supple, no adenopathy Lung: breath sounds symmetric, no wheezing, rales or rhonchi Chest: symmetric movement, nontender Heart: regular rate and rhythm, normal S1, S2 no murmurs or rubs Abdomen: soft, mild to moderate suprapubic tenderness, mild diffuse abdominal tenderness, no rebound, no voluntary or involuntary guarding, normal bowel sounds Back: no vertebral tenderness, no CVAT Extremities: no deformities, moves all extremities symmetrically Medical Decision Making Medical Decision Making MDM Narrative: 24-year-old male with a history of recurrent abdominal pain associated with nausea and vomiting, patient's 5th visit here in the emergency department since 04/02/2024 who presents for evaluation of abdominal pain, nausea, vomiting and diarrhea. Patient was r seen 4 days prior by his GI doctor and started on omeprazole and sucralfate with no improvement of his pain. The patient was a daily marijuana user but stopped after he was told that he might have cannabis hyperemesis syndrome but smoked marijuana several days prior. Currently he is complaining of abdominal pain which is 4/10. Vital signs were normal. Physical examination revealed mild diffuse abdominal tenderness with moderate epigastric tenderness. Differential diagnosis: ?Includes but is not limited to peptic ulcer disease, gastric ulcers, duodenal ulcers, GERD, gastritis, cyclic vomiting syndrome, cannabis hyperemesis syndrome Following evaluation was ordered: CBC, CMP, lipas Patient was initially treated with the following: Lactated Ringer's x1 L, Zofran 4 mg IV Course: Patient's laboratory evaluation was unremarkable. The patient did feel better after receiving Zofran and IV fluid. I suspect that the patient's pain is due to upper GI issues such as gastritis versus peptic ulcer disease/gastric ulcer. There may also be a component of cannabis hyperemesis syndrome contributing to his symptoms. I did discuss this with the patient. The patient was advised to continue taking his medications as prescribed by his GI doctor. He was prescribed Zofran 4 mg ODT every 6-8 hours as needed for nausea and vomiting. He was advised to stop smoking marijuana for at least 6 months in the event that this is cannabis hyperemesis syndrome. He was given printed, verbal instructions and a work note and discharged home. Admission/Observation Consideration of admission/observation: Escalation of care including admission/observation considered Lab Data MDM Lab Attestation statement: I reviewed the patient's lab results. My interpretation patient's laboratory is as follows: CBC was normal. CMP was normal except for an elevated ALT of 56-she has had similar elevation in the past. Lipase was normal. 05/13/24 08:37 05/13/24 08:37 Labs: Lab Results 05/13/24 Range/Units 08:37 WBC 8.0 (4.8-10.8) X10*3/uL RBC 5.51 (4.60-5.80) X10*6/uL Hgb 15.8 (14.0-18.0) g/dl Hct 46.8 (42.0-52.0) % MCV 84.9 (80.0-98.0) fL MCH 28.7 (27.0-33.0) pg MCHC 33.8 (31.0-36.0) g/dl RDW 11.7 (11.0-16.0) % Plt Count 327 (160-400) X10*3/uL MPV 9.7 (9.4-12.4) fL Immature Gran % (Auto) 0.4 (0.0-0.4) % Neut % (Auto) 65.4 (45-73) % Lymph % (Auto) 23.6 (20-40) % [place] % (Auto) 7.4 (2-11) % Eos % (Auto) 2.8 (0-4) % Baso % (Auto) 0.4 (0-2) % Lymph # (Auto) 1.9 (1.2-4.9) X10*3/uL [place] # (Auto) 0.6 (0.1-1.2) X10*3/uL Eos # (Auto) 0.2 (0.0-0.4) X10*3/uL Baso # (Auto) 0.0 (0.0-0.2) X10*3/uL Abs Immat Gran (auto) 0.03 (0.00-0.03) X10*3/uL Absolute Neuts (auto) 5.2 (2.0-8.3) x10*3/uL Absolute Nucleated RBC 0.000 (0.0-0.012) X10*3/uL Nucleated RBC % (auto) 0.0 (0.0-0.2) /100WBC Sodium 142 (135-145) mmol/L Potassium 3.7 (3.3-5.1) mmol/L Chloride 108 (96-108) mmol/L Carbon Dioxide 23 (22-29) mmol/L Anion Gap 15 (12-20) BUN 9 (9-16) mg/dL Creatinine 1.09 (0.5-1.4) mg/dL Estim Creat Clear Calc 171.8 Estimated GFR > 60 Random Glucose 98 (60-115) mg/dL Calcium 9.9 (8.4-10.2) mg/dL Total Bilirubin 0.6 (0.0-1.0) mg/dL Direct Bilirubin 0.2 (0.0-0.5) mg/dL AST 24 (5-37) U/L ALT 56 H (0-40) U/L Alkaline Phosphatase 77 (39-117) U/L Total Protein 7.1 (6.5-8.0) g/dL Albumin 4.3 (3.5-5.0) g/dL Lipase 33 (8-78) U/L Medications Administered Discontinued Medications Generic Name Dose Route Start Last Admin Trade Name Imtiaz PRN Reason Stop Dose Admin Lactated Ringer's 1,000 mls @ 999 mls/hr 05/13/24 09:17 05/13/24 11:49 Lr IV 05/13/24 10:17 Infused .Q1H1M STA Infusion Ondansetron HCl 4 mg 05/13/24 09:17 05/13/24 10:06 Ondansetron Hcl 4 Mg/2 Ml Vial IVPUSH 05/13/24 09:18 4 mg ONCE ONE Administration Discharge Plan Discharge Clinical Impression: Abdominal pain, Nausea & vomiting Patient Disposition: Home, Self-Care Instructions: Peptic Ulcer (ED), Cyclic Vomiting Syndrome (ED) Additional Instructions: Your blood work was unremarkable. Your symptoms are most likely related to your stomach in you may either have gastritis, peptic ulcer disease or ulcers. Your symptoms may also be related to marijuana use/cannabis cyclic vomiting syndrome. Continue taking your omeprazole and sucralfate as prescribed by your GI doctor. Take Zofran ODT 4 mg pills, 1 pill dissolved in your mouth every 8 hours as needed for nausea and vomiting. Take Tylenol (acetaminophen) 500 mg pills, 2 pills every 6 hours as needed for pain or fever. Follow-up with your doctor in 2 days. Please return to the emergency department if your symptoms get worse or if you develop any symptoms that are concerning to you. Please see work note Prescriptions: New ondansetron 4 mg tablet,disintegrating 4 mg PO Q6-8H PRN (Reason: nausea and vomiting) Qty: 20 0RF No Action ondansetron 4 mg tablet,disintegrating 4 mg PO Q8H PRN (Reason: nausea and vomiting) Qty: 20 0RF omeprazole 20 mg capsule,delayed release(DR/EC) 20 mg PO DAILY Qty: 14 0RF Stand Alone Forms: Work/School Release Interventions: ED Discharge Assessment Last Done: 05/13/24 13:31 Discharge Date/Time: 05/13/24 13:32 Print Language: French
[2024-05-13] MEDS: Lactated Ringers 1,000 ML 999 ML IV (10:05)
[2024-05-13] MEDS: ondansetron HCL 4 MG/2 ML VIAL IVPUSH (10:06)
--- NOTE | 2024-05-13 11:57 | PC.NURSE ---
PO CHALLENGE PROVIDED, TOLERATED WELL
[2024-05-13 12:16] VITALS: BP 121/81; PULSE 73; RESP 16; TEMP 36.8; O2SAT 97
[2024-05-13 13:31] VITALS: BP 121/81; PULSE 73; RESP 16; TEMP 36.8; O2SAT 97
== END 2024-05-13 13:32 | disposition home or self-care (01) ==
PROVIDERS: Emergency Provider Emergency Medicine Emergency Medical Services
DX: R10.9 Unspecified abdominal pain (principal); F12.188 Cannabis abuse with other cannabis-induced disorder; R11.2 Nausea with vomiting, unspecified; R19.7 Diarrhea, unspecified; Z79.899 Other long term (current) drug therapy
CPT/HCPCS: 36415; 80053; 82248; 83690; 85025; 96361; 96374; 99284; J2405; J7120

== ENCOUNTER 2024-07-11 09:42 | Emergency (ER) | payer OTHER, SELFPAY ==
[2024-07-11 10:27] VITALS: BP 118/69; PULSE 78; RESP 18; TEMP 37.1; O2SAT 97; BMI 44.9
--- NOTE | 2024-07-11 11:09 | ED_ITS ---
HPI - General Adult General Chief complaint: Abdominal Pain Stated complaint: abd pain Time Seen by Provider: 07/11/24 11:04 Source: patient Mode of arrival: ambulatory Limitations: no limitations History of Present Illness ED Provider: Liv Berry PA-C HPI narrative: Patient is a 24 year old assigned male at with a history of gastric ulcers presenting to the emergency department today with abdominal pain. Patient states that this has been intermittent since March of 2024. Patient states that he saw a [facility] GI specialist and they have him scheduled for an endoscopy but that isn't until November of 2024. Patient states that he has been on medication but recently ran out. Patient denies any dizziness, lightheadedness, nausea, vomiting, fever, chills, blurry vision, double vision, loss of vision, chest pain, difficulty breathing, shortness of breath, back pain, night sweats, pain with urination, increased urinary frequency, increased urinary urgency, blood in his urine or stool, syncope or a near syncopal episode, recent trauma or falls, bowel incontinence, bladder incontinence, or any other complaints at this time. Relieving factors: none Related Data Previous Rx's ?Medication ?Instructions ?Recorded omeprazole 20 mg capsule,delayed 20 mg PO DAILY #14 caps 04/02/24 release ondansetron 4 mg disintegrating 4 mg PO Q8H PRN nausea and 04/02/24 tablet vomiting #20 tabs ondansetron 4 mg disintegrating 4 mg PO Q6-8H PRN nausea and 05/13/24 tablet vomiting #20 tabs famotidine 10 mg tablet 10 mg PO DAILY 7 days #7 tabs 07/11/24 omeprazole 40 mg capsule,delayed 40 mg PO DAILY 1 week #7 caps 07/11/24 release sucralfate 100 mg/mL oral 5 ml PO QID #414 mL 07/11/24 suspension (Carafate) Allergies Allergy/AdvReac Type Severity Reaction Status Date / Time No Known Allergies Allergy Verified 07/11/24 10:29 Review of Systems 2 Constitutional: Constitutional: Reports no additional constitutional complaints, Denies chills, Denies fever(s) and Denies night sweats Eyes: Eyes: Reports no additional eye complaints, Denies blurry vision, Denies change in vision, Denies diplopia, Denies eye discharge, Denies loss of vision and Denies eye pain ENT: Denies dizziness Cardiovascular: Cardiovascular: Reports no additional cardiovascular complaints, Denies chest pain, Denies lightheadedness, Denies Loss of Consciousness and Denies dyspnea Respiratory: Respiratory: Reports no additional respiratory complaints and Denies dyspnea Gastrointestinal: Gastrointestinal: Reports no additional gastrointestinal complaints, Reports abdominal pain, Denies melena, Denies hematochezia, Denies change in bowel habits and Denies change in stool character Genitourinary: Genitourinary: Reports no additional male genitourinary complaints, Denies hematuria, Denies oliguria, Denies difficulty urinating, Denies dysuria, Denies urinary frequency, Denies urinary hesitancy, Denies urinary incontinence and Denies urinary urgency Musculoskeletal: Musculoskeletal: Reports no additional musculoskeletal complaints, Denies numbness and Denies tingling Neurologic: Denies dizziness, Denies loss of vision, Denies numbness and Denies tingling Psychiatric: Psychiatric: Reports no additional psychiatric complaints Endocrine: Endocrine: Reports no additional endocrine complaints Hematologic/Lymphatic: Hematologic/Lymphatic: Reports no additional hematologic/lymphatic complaints Allergic/Immunologic: Allergic/Immunologic: Reports no additional allergic/immunologic complaints PMFSH Past Medical History Attestation statement: The following information was validated with the patient. Source: old records reviewed and nursing notes reviewed Medical History No pertinent past medical history Social History Social History Alcohol intake: former Patient Tobacco Use Status: Never used Tobacco Smoked in Last 30 Days: No Use of substances other than those prescribed or required for medical reasons: Yes Substance Use Type: Marijuana Substance Use Frequency: Chronic Longstanding Advance Directives: No Advance Directives Information Provided: Yes Physical Exam ED Vital Signs: Vital Signs - 24 hr 07/11/24 10:27 Temperature 98.8 F Pulse Rate 78 Respiratory Rate 18 Blood Pressure 118/69 Pulse Oximetry 97 Oxygen Delivery Method Room Air BMI result Body Mass Index 44.9 Const General: cooperative, no acute distress, alert and awake Nutritional Appearance: well nourished Orientation/consciousness: patient oriented x3 Limitations: no limitations HENMT Head: Yes normal to inspection and Yes atraumatic Ears: hearing grossly normal bilaterally and external ears normal General nose exam: Normal external nose present, no nasal discharge noted and no epistaxis Face and sinus: Yes normal facial exam, No abrasion and No laceration Mouth: Normal oral and palatal mucosa present, no drooling and no muffled voice Eyes General: appearance normal, both eyes and all related structures Periorbital: periorbital findings normal Eyelids: Yes eyelids normal Conjunctivae: conjunctivae normal Pupils: Equal, round and reactive pupils present EOM: EOMs intact bilaterally Neck Neck: Yes normal visual inspection, Yes full ROM and Yes no lymphadenopathy Chest Chest palpation & inspection: normal inspection of the chest Resp Effort & Inspection: normal respiratory effort and able to speak in complete sentences GI Inspection: Yes normal to inspection Palpation (GI): Soft to palpation, not firm, nontender, no guarding and not rigid Neuro General: patient oriented x3 and moves all extremities Cranial nerves: Yes Equal, round and reactive pupils present Cognition (Neuro): normal cognition Extrem General: Yes normal to inspection, Yes full ROM and Yes capillary refill normal Psych Appearance: grossly normal Mental Status: mental status grossly normal Affect: normal affect Attitude: cooperative Thought process: Normal thought process present Thought content: Normal thought content present Insight: Good insight present (Psych) Medications Administered Discontinued Medications Generic Name Dose Route Start Last Admin Trade Name Freq PRN Reason Stop Dose Admin Ondansetron HCl 4 mg 07/11/24 11:09 07/11/24 11:22 Ondansetron Hcl 4 Mg/2 Ml Vial IVPUSH 07/11/24 11:10 4 mg ONCE ONE Administration Pantoprazole Sodium 40 mg 07/11/24 11:09 07/11/24 11:22 Pantoprazole Sodium 40 Mg/10 Ml Vial IVPUSH 07/11/24 11:10 40 mg ONCE ONE Administration Medical Decision Making Medical Decision Making [facility] Narrative: Patient is a 24 year old assigned male at with a history of gastric ulcers presenting to the emergency department today with abdominal pain. Patient's physical exam was unremarkable. Patient's blood work was unremarkable. I explained my physical exam findings as well as all test results to the patient. I answered all questions asked by the patient. I stressed the importance of the patient taking his medication as directed (either prescribed or as the over the counter packaging recommends). I stressed the importance of the patient following up with his primary care provider and a GI specialist. I stressed the importance of the patient returning to the emergency department immediately if his symptoms were to worsen or if he were to develop any dizziness, shortness of breath, difficulty breathing, chest pain, blurry vision, loss of vision, nausea, vomiting, abdominal pain, fever, chills, back pain, or any other complaints. Patient verbalized agreement and understanding with this treatment plan and discharge. Differential Diagnosis Differential Diagnoses: The differential diagnosis associated with the presentation includes Gastritis Gastric ulcers Abdominal pain Admission/Observation Consideration of admission/observation: Escalation of care including admission/observation considered Patient would have been admitted to the hospital had his work up had any findings where hospital admission was appropriate and his clinical presentation warranted hospital admission. Lab Data [facility] Lab Attestation statement: I reviewed the patient's lab results. My interpretation of these results are in the [facility] Rationale portion of this note. 07/11/24 11:22 07/11/24 11:22 Labs: Lab Results 07/11/24 Range/Units 11:22 WBC 7.7 (4.8-10.8) X10*3/uL RBC 5.43 (4.60-5.80) X10*6/uL Hgb 15.8 (14.0-18.0) g/dl Hct 46.6 (42.0-52.0) % MCV 85.8 (80.0-98.0) fL MCH 29.1 (27.0-33.0) pg MCHC 33.9 (31.0-36.0) g/dl RDW 12.2 (11.0-16.0) % Plt Count 313 (160-400) X10*3/uL MPV 9.6 (9.4-12.4) fL Immature Gran % (Auto) 0.5 H (0.0-0.4) % Neut % (Auto) 73.2 H (45-73) % Lymph % (Auto) 17.4 L (20-40) % [place] % (Auto) 5.1 (2-11) % Eos % (Auto) 3.4 (0-4) % Baso % (Auto) 0.4 (0-2) % Lymph # (Auto) 1.3 (1.2-4.9) X10*3/uL [place] # (Auto) 0.4 (0.1-1.2) X10*3/uL Eos # (Auto) 0.3 (0.0-0.4) X10*3/uL Baso # (Auto) 0.0 (0.0-0.2) X10*3/uL Abs Immat Gran (auto) 0.04 H (0.00-0.03) X10*3/uL Absolute Neuts (auto) 5.6 (2.0-8.3) x10*3/uL Absolute Nucleated RBC 0.000 (0.0-0.012) X10*3/uL Nucleated RBC % (auto) 0.0 (0.0-0.2) /100WBC Sodium 142 (135-145) mmol/L Potassium 4.0 (3.3-5.1) mmol/L Chloride 107 (96-108) mmol/L Carbon Dioxide 27 (22-29) mmol/L Anion Gap 12 (12-20) BUN 11 (9-16) mg/dL Creatinine 1.10 (0.5-1.4) mg/dL Estim Creat Clear Calc 167.9 Estimated GFR > 60 Random Glucose 102 (60-115) mg/dL Calcium 10.0 (8.4-10.2) mg/dL Total Bilirubin 0.6 (0.0-1.0) mg/dL AST 34 (5-37) U/L ALT 63 H (0-40) U/L Alkaline Phosphatase 87 (39-117) U/L Total Protein 7.3 (6.5-8.0) g/dL Albumin 4.4 (3.5-5.0) g/dL Lipase 15 (8-78) U/L Tests considered The following testing was considered but not selected: I considered obtaining a CT scan of the abdomen/pelvis however, the patient's current presentation and work up does not warrant this at this time. I discussed this with the patient who verbalized understanding and agreement. Discharge Plan Discharge Clinical Impression: Gastric ulcer Patient Disposition: Home, Self-Care Instructions: Peptic Ulcer (ED), Diet for Stomach Ulcers and Gastritis (ED) Additional Instructions: Your lab work today was reassuring that you have no life threatening process occurring. Continue avoiding NSAID use. Continue taking your medication as prescribed. Follow up with your primary care provider and a GI specialist. Return to the emergency department immediately if your symptoms worsen or if you develop any dizziness, shortness of breath, difficulty breathing, chest pain, blurry vision, loss of vision, nausea, vomiting, abdominal pain, fever, chills, back pain, or any other complaints. Prescriptions: New omeprazole 40 mg capsule,delayed release(DR/EC) 40 mg PO DAILY 7 Days Qty: 7 0RF famotidine 10 mg tablet 10 mg PO DAILY 7 Days Qty: 7 0RF sucralfate [Carafate] 100 mg/mL suspension 5 ml PO QID Qty: 414 0RF Rx Instructions: swish in mouth and swallow; use after food/drink No Action ondansetron 4 mg tablet,disintegrating 4 mg PO Q6-8H PRN (Reason: nausea and vomiting) Qty: 20 0RF ondansetron 4 mg tablet,disintegrating 4 mg PO Q8H PRN (Reason: nausea and vomiting) Qty: 20 0RF omeprazole 20 mg capsule,delayed release(DR/EC) 20 mg PO DAILY Qty: 14 0RF Referrals: [facility] Gastroenterology Services [Provider Group] (Call to establish and follow up with a GI specialist. ) [facility] Family Medicine [Provider Group] (Call to establish and follow up with a primary care provider. If you already have a primary care provider, please follow up with them.) [facility] Primary Care, [place] [Provider Group] (Call to establish and follow up with a primary care provider. If you already have a primary care provider, please follow up with them.) [facility] Primary Care,[facility] [Provider Group] (Call to establish and follow up with a primary care provider. If you already have a primary care provider, please follow up with them.) Stand Alone Forms: Work/School Release Print Language: Arabic
[2024-07-11] MEDS: Pantoprazole Sodium 40 MG/10 ML VIAL IVPUSH (11:22)
[2024-07-11] MEDS: ondansetron HCL 4 MG/2 ML VIAL IVPUSH (11:22)
[2024-07-11 11:31] LABS: MANUAL DIFF FLAG NO
[2024-07-11 11:33] LABS: Basophils Percent Auto 0.4 % (0-2); Eosinophils Absolute Auto 0.3 X10*3/uL (0.0-0.4); Eosinophils Percent Auto 3.4 % (0-4); Hematocrit 46.6 % (42.0-52.0); Hemoglobin 15.8 g/dl (14.0-18.0); Imm Gran Abs Auto 0.04 X10*3/uL (0.00-0.03); Imm Gran Pct Auto 0.5 % (0.0-0.4); Lymphocytes Absolute Auto 1.3 X10*3/uL (1.2-4.9); Lymphocytes Percent Auto 17.4 % (20-40); Mean Corpuscular HGB Conc 33.9 g/dl (31.0-36.0); Mean Corpuscular Hemoglobin 29.1 pg (27.0-33.0); Mean Corpuscular Volume 85.8 fL (80.0-98.0); Mean Platelet Volume 9.6 fL (9.4-12.4); Monocytes Absolute Auto 0.4 X10*3/uL (0.1-1.2); Monocytes Percent Auto 5.1 % (2-11); Neutrophils Absolute Auto 5.6 x10*3/uL (2.0-8.3); Neutrophils Percent Auto 73.2 % (45-73); Platelet Count 313 X10*3/uL (160-400); Red Blood Count 5.43 X10*6/uL (4.60-5.80); Red Cell Distribution Width 12.2 % (11.0-16.0); White Blood Count 7.7 X10*3/uL (4.8-10.8)
[2024-07-11 11:47] LABS: Alanine Aminotransferase 63 U/L (0-40); Albumin Level 4.4 g/dL (3.5-5.0); Alkaline Phosphatase 87 U/L (39-117); Anion Gap 12 (12-20); Aspartate Amino Transferase 34 U/L (5-37); Bilirubin Total 0.6 mg/dL (0.0-1.0); Blood Urea Nitrogen 11 mg/dL (9-16); Carbon Dioxide 27 mmol/L (22-29); Chloride 107 mmol/L (96-108); Creatinine Clr Calc Pharmacy 167.9; Estimated Glomerular Filt Rate > 60; Glucose Random 102 mg/dL (60-115); Lipase 15 U/L (8-78); Sodium 142 mmol/L (135-145); Total Protein 7.3 g/dL (6.5-8.0)
[2024-07-11 12:35] VITALS: BP 118/69; PULSE 78; RESP 18; TEMP 37.1; O2SAT 98
== END 2024-07-11 12:35 | disposition home or self-care (01) ==
PROVIDERS: Physician Assistant Medical; Emergency Provider Emergency Medicine Emergency Medical Services
DX: K25.7 Chronic gastric ulcer without hemorrhage or perforation (principal); Z79.899 Other long term (current) drug therapy
CPT/HCPCS: 36415; 80053; 83690; 85025; 96374; 96375; 99284; J2405; J2470

== ENCOUNTER 2024-07-15 09:34 | Emergency (ER) | payer OTHER, SELFPAY ==
[2024-07-15 09:53] VITALS: BP 138/79; PULSE 80; RESP 16; TEMP 36.4; O2SAT 98; BMI 44.9
[2024-07-15 09:55] VITALS: BP 125/67; PULSE 65; RESP 18; TEMP 37.2; O2SAT 98; BMI 44.8
[2024-07-15 10:24] LABS: Basophils Percent Auto 0.3 % (0-2); Eosinophils Absolute Auto 0.1 X10*3/uL (0.0-0.4); Eosinophils Percent Auto 1.7 % (0-4); Hemoglobin 15.6 g/dl (14.0-18.0); Imm Gran Abs Auto 0.03 X10*3/uL (0.00-0.03); Imm Gran Pct Auto 0.4 % (0.0-0.4); Lymphocytes Absolute Auto 1.3 X10*3/uL (1.2-4.9); MANUAL DIFF FLAG NO; Mean Corpuscular HGB Conc 33.9 g/dl (31.0-36.0); Mean Corpuscular Hemoglobin 29.3 pg (27.0-33.0); Mean Corpuscular Volume 86.3 fL (80.0-98.0); Mean Platelet Volume 9.6 fL (9.4-12.4); Monocytes Absolute Auto 0.5 X10*3/uL (0.1-1.2); Monocytes Percent Auto 6.5 % (2-11); Neutrophils Absolute Auto 5.2 x10*3/uL (2.0-8.3); Neutrophils Percent Auto 73.1 % (45-73); Platelet Count 301 X10*3/uL (160-400); Red Blood Count 5.33 X10*6/uL (4.60-5.80); Red Cell Distribution Width 11.9 % (11.0-16.0); White Blood Count 7.1 X10*3/uL (4.8-10.8)
--- NOTE | 2024-07-15 10:41 | ED_ITS ---
HPI - Abdominal Pain General Chief Complaint: Abdominal Pain Stated Complaint: Abd pain Time Seen by Provider: 07/15/24 10:26 Source: patient and RN notes reviewed Mode of arrival: ambulatory Limitations: no limitations History of Present Illness ED Provider: Jeanette Souza PA-C HPI narrative: This is a 24-year-old male who presents emergency department with complaints of ongoing abdominal pain. He has a history of gastric ulcers, and has had intermittent abdominal pain since March. He has been seen by [employer] field crop technical officer and is scheduled for an endoscopy however this is not until December 04, 2024. He has been taking his medications as prescribed. He states that he is frustrated as he is unable to be tested for H pylori until he discontinues his medications. He denies any fevers, chills, chest pain, shortness of breath, abdominal pain, nausea, vomiting or diarrhea. Denies any urinary symptoms. He states that he is unsure which triggers his abdominal pain. He states that he has decreased appetite as he is fearful that this is going to worsen his pain. No other complaints or concerns at this time. MD elicited complaint: abdominal pain Pertinent past history: gastritis Onset (ago): day(s) Exacerbating factors: nothing Relieving factors: nothing Associated symptoms: nausea Related Data Previous Rx's ?Medication ?Instructions ?Recorded omeprazole 20 mg capsule,delayed 20 mg PO DAILY #14 caps 04/02/24 release ondansetron 4 mg disintegrating 4 mg PO Q8H PRN nausea and 04/02/24 tablet vomiting #20 tabs ondansetron 4 mg disintegrating 4 mg PO Q6-8H PRN nausea and 05/13/24 tablet vomiting #20 tabs famotidine 10 mg tablet 10 mg PO DAILY 7 days #7 tabs 07/11/24 omeprazole 40 mg capsule,delayed 40 mg PO DAILY 1 week #7 caps 07/11/24 release sucralfate 100 mg/mL oral 5 ml PO QID #414 mL 07/11/24 suspension (Carafate) Allergies Allergy/AdvReac Type Severity Reaction Status Date / Time No Known Allergies Allergy Verified 07/15/24 09:56 Review of Systems Review of Systems Yes all other systems are reviewed and are negative Constitutional: Reports as per HPI [facility] Past Medical History Medical History No pertinent past medical history Social History Social History Alcohol intake: former Patient Tobacco Use Status: Never used Tobacco Smoked in Last 30 Days: No Use of substances other than those prescribed or required for medical reasons: Yes Substance Use Type: Marijuana Substance Use Frequency: Chronic Longstanding Advance Directives: No Advance Directives Information Provided: Yes Do you have a plan to hurt others: No Plan Physical Exam ED Vital Signs: Vital Signs - 24 hr 07/15/24 09:53 07/15/24 09:55 Temperature 97.6 F 98.9 F Pulse Rate 80 65 Respiratory Rate 16 18 Blood Pressure 138/79 125/67 Pulse Oximetry 98 98 Oxygen Delivery Method Room Air Room Air BMI result Body Mass Index 44.8 Const General: cooperative, comfortable and no acute distress Orientation/consciousness: patient oriented x3 Limitations: no limitations HENMT Head: Yes normal to inspection, Yes normocephalic and Yes atraumatic Ears: hearing grossly normal bilaterally General nose exam: Normal external nose present Face and sinus: Yes normal facial exam Mouth: Normal oral and palatal mucosa present, oropharynx normal and moist mucous membranes Throat: Yes posterior oropharynx normal Eyes General: appearance normal, both eyes and all related structures Eyelids: Yes eyelids normal Conjunctivae: conjunctivae normal Sclerae: sclerae normal Pupils: Equal, round and reactive pupils present EOM: EOMs intact bilaterally Neck Neck: Yes normal visual inspection, Yes full ROM and Yes no lymphadenopathy Lymphatic: no lymphadenopathy noted Chest Chest palpation & inspection: normal inspection of the chest Resp Effort & Inspection: normal respiratory effort and able to speak in complete sentences Auscultation: clear to auscultation bilaterally, no crackles, no rales, no rhonchi and no wheezes Cardio Rate: regular rate Rhythm: regular rhythm Heart sounds: S1 normal heart sound present and S2 normal heart sound present GI Other: Abdomen is soft, nontender, nondistended. Inspection: Yes normal to inspection Skin General skin exam: no rashes or lesions noted Trauma: no lacerations or abrasions Wounds: no wounds Neuro General: patient oriented x3 and moves all extremities Cranial nerves: Yes Equal, round and reactive pupils present Extrem General: Yes normal to inspection Right upper extremity: normal to inspection Left upper extremity: normal to inspection Right lower extremity: normal to inspection Left lower extremity: normal to inspection Medical Decision Making Medical Decision Making [facility] Narrative: This is a 24-year-old male who presents emergency department with complaints of ongoing abdominal pain for multiple months. Patient reports that his symptoms are consistent with chronic pain he has had in the past. Abdomen is soft, nontender, nondistended. Blood work unremarkable. Patient was medicated with GI cocktail, he denies wanting to eat any food prior to his departure. He states that he is feeling better however he is aware that he needs to follow-up with a field crop technical officer. Given strict return precautions. Patient understands and agrees with plan. Patient stable for discharge. Differential Diagnosis Differential Diagnoses: The differential diagnosis associated with the presentation includes Gastritis, gastric ulcers, abdominal pain, cholecystitis-unlikely Lab Data [facility] Lab Attestation statement: I reviewed the patient's lab results. No leukocytosis, stable H&H, chemistry within normal limits. 07/15/24 10:15 07/15/24 10:15 Labs: Lab Results 07/15/24 07/15/24 Range/Units 10:15 11:14 WBC 7.1 (4.8-10.8) X10*3/uL RBC 5.33 (4.60-5.80) X10*6/uL Hgb 15.6 (14.0-18.0) g/dl Hct 46.0 (42.0-52.0) % MCV 86.3 (80.0-98.0) fL MCH 29.3 (27.0-33.0) pg MCHC 33.9 (31.0-36.0) g/dl RDW 11.9 (11.0-16.0) % Plt Count 301 (160-400) X10*3/uL MPV 9.6 (9.4-12.4) fL Immature Gran % (Auto) 0.4 (0.0-0.4) % Neut % (Auto) 73.1 H (45-73) % Lymph % (Auto) 18.0 L (20-40) % [place] % (Auto) 6.5 (2-11) % Eos % (Auto) 1.7 (0-4) % Baso % (Auto) 0.3 (0-2) % Lymph # (Auto) 1.3 (1.2-4.9) X10*3/uL [place] # (Auto) 0.5 (0.1-1.2) X10*3/uL Eos # (Auto) 0.1 (0.0-0.4) X10*3/uL Baso # (Auto) 0.0 (0.0-0.2) X10*3/uL Abs Immat Gran (auto) 0.03 (0.00-0.03) X10*3/uL Absolute Neuts (auto) 5.2 (2.0-8.3) x10*3/uL Absolute Nucleated RBC 0.000 (0.0-0.012) X10*3/uL Nucleated RBC % (auto) 0.0 (0.0-0.2) /100WBC Sodium 143 (135-145) mmol/L Potassium 3.7 (3.3-5.1) mmol/L Chloride 110 H (96-108) mmol/L Carbon Dioxide 25 (22-29) mmol/L Anion Gap 12 (12-20) BUN 11 (9-16) mg/dL Creatinine 0.98 (0.5-1.4) mg/dL Estim Creat Clear Calc 188.3 Estimated GFR > 60 Random Glucose 98 (60-115) mg/dL Calcium 9.3 D (8.4-10.2) mg/dL Total Bilirubin 0.5 (0.0-1.0) mg/dL Direct Bilirubin 0.2 (0.0-0.5) mg/dL AST 27 (5-37) U/L ALT 48 H (0-40) U/L Alkaline Phosphatase 75 (39-117) U/L Total Protein 6.8 (6.5-8.0) g/dL Albumin 4.1 (3.5-5.0) g/dL Lipase 16 (8-78) U/L Urine Color Yellow Urine Appearance Clear Urine pH 6.5 (5.0-9.0) Ur Specific [place] 1.025 (1.005-1.025) Urine Protein Negative (Neg-Trace) mg/dL Urine Glucose (UA) Negative (Negative) mg/dL Urine Ketones Negative (Negative) mg/dL Urine Blood Negative (Negative) Urine Nitrite Negative (Negative) Ur Leukocyte Esterase Negative (Negative) Medications Administered Discontinued Medications Generic Name Dose Route Start Last Admin Trade Name Freq PRN Reason Stop Dose Admin Al Hydroxide/Mg Hydroxide 30 ml 07/15/24 11:07 07/15/24 11:12 Magnesium Hydrox/Alum Hydrox 30 Ml Oral.Susp PO 07/15/24 11:08 30 ml ONCE ONE Administration Lidocaine HCl 15 ml 07/15/24 11:07 07/15/24 11:12 Lidocaine Hcl Viscous 2 % 15 Ml Solution MUCOUS MEM 07/15/24 11:08 15 ml ONCE ONE Administration Discharge Plan Discharge Clinical Impression: Abdominal pain Patient Disposition: Home, Self-Care Instructions: Abdominal Pain (ED) Additional Instructions: You were seen in the emergency department due to ongoing abdominal pain. Your labs are reassuring. You need to follow-up with the GI specialist. Call today to make an appointment. Continue taking all at-home medications as prescribed. If any new or worsening symptoms occur including but not limited to worsening pain, fevers, chills, chest pain, shortness of breath, please seek emergent care. Prescriptions: No Action ondansetron 4 mg tablet,disintegrating 4 mg PO Q6-8H PRN (Reason: nausea and vomiting) Qty: 20 0RF omeprazole 40 mg capsule,delayed release(DR/EC) 40 mg PO DAILY 7 Days Qty: 7 0RF famotidine 10 mg tablet 10 mg PO DAILY 7 Days Qty: 7 0RF sucralfate [Carafate] 100 mg/mL suspension 5 ml PO QID Qty: 414 0RF Rx Instructions: swish in mouth and swallow; use after food/drink ondansetron 4 mg tablet,disintegrating 4 mg PO Q8H PRN (Reason: nausea and vomiting) Qty: 20 0RF omeprazole 20 mg capsule,delayed release(DR/EC) 20 mg PO DAILY Qty: 14 0RF Referrals: [facility] [Provider Group] Stand Alone Forms: Work/School Release Print Language: Maltese
[2024-07-15 10:42] LABS: Anion Gap 12 (12-20); Blood Urea Nitrogen 11 mg/dL (9-16); Calcium 9.3 mg/dL (8.4-10.2); Carbon Dioxide 25 mmol/L (22-29); Chloride 110 mmol/L (96-108); Creatinine Clr Calc Pharmacy 188.3; Estimated Glomerular Filt Rate > 60; Glucose Random 98 mg/dL (60-115); Potassium 3.7 mmol/L (3.3-5.1); Sodium 143 mmol/L (135-145)
[2024-07-15 11:09] LABS: Alanine Aminotransferase 48 U/L (0-40); Albumin Level 4.1 g/dL (3.5-5.0); Alkaline Phosphatase 75 U/L (39-117); Aspartate Amino Transferase 27 U/L (5-37); Bilirubin Direct 0.2 mg/dL (0.0-0.5); Bilirubin Total 0.5 mg/dL (0.0-1.0); Lipase 16 U/L (8-78); Total Protein 6.8 g/dL (6.5-8.0)
[2024-07-15] MEDS: Lidocaine HCl Viscous 2 % 15 ML SOLUTION MUCOUS MEM (11:12)
[2024-07-15] MEDS: Magnesium Hydrox/Alum Hydrox 30 ML ORAL.SUSP PO (11:12)
[2024-07-15 11:22] LABS: Appearance Urine Clear; Color Urine Yellow; Glucose Urine UA Negative (Negative); Leukocyte Esterase Urine Negative (Negative); Nitrite Urine Negative (Negative); PH 6.5 (5.0-9.0); Specific Gravity - Urine 1.025 (1.005-1.025); Urine Blood Negative (Negative); Urine Ketones Negative (Negative); Urine Protein Negative (Neg-Trace)
[2024-07-15 12:48] VITALS: BP 125/67; PULSE 65; RESP 18; TEMP 37.2; O2SAT 98
== END 2024-07-15 12:49 | disposition home or self-care (01) ==
PROVIDERS: Physician Assistant Medical; Emergency Provider Emergency Medicine
DX: K29.70 Gastritis, unspecified, without bleeding (principal); R10.2 Pelvic and perineal pain; R11.0 Nausea; Z79.899 Other long term (current) drug therapy
CPT/HCPCS: 36415; 80048; 80076; 81003; 83690; 85025; 99283; 99284

== ENCOUNTER 2024-07-18 09:55 | Emergency (ER) | payer OTHER, SELFPAY ==
[2024-07-18 10:05] VITALS: BP 113/63; PULSE 77; RESP 18; TEMP 36.6; O2SAT 96; BMI 49.4
[2024-07-18] MEDS: Dicyclomine HCl 10 MG CAPSULE PO (11:57)
[2024-07-18] MEDS: Magnesium Hydrox/Alum Hydrox 30 ML ORAL.SUSP PO (11:57)
[2024-07-18 11:59] LABS: MANUAL DIFF FLAG NO
[2024-07-18 12:02] LABS: Basophils Percent Auto 0.4 % (0-2); Eosinophils Absolute Auto 0.1 X10*3/uL (0.0-0.4); Eosinophils Percent Auto 1.2 % (0-4); Hematocrit 42.4 % (42.0-52.0); Hemoglobin 14.8 g/dl (14.0-18.0); Imm Gran Abs Auto 0.04 X10*3/uL (0.00-0.03); Imm Gran Pct Auto 0.5 % (0.0-0.4); Lymphocytes Absolute Auto 1.5 X10*3/uL (1.2-4.9); Lymphocytes Percent Auto 19.7 % (20-40); Mean Corpuscular HGB Conc 34.9 g/dl (31.0-36.0); Mean Corpuscular Hemoglobin 29.2 pg (27.0-33.0); Mean Corpuscular Volume 83.8 fL (80.0-98.0); Mean Platelet Volume 9.6 fL (9.4-12.4); Monocytes Absolute Auto 0.5 X10*3/uL (0.1-1.2); Monocytes Percent Auto 6.6 % (2-11); Neutrophils Absolute Auto 5.3 x10*3/uL (2.0-8.3); Neutrophils Percent Auto 71.6 % (45-73); Platelet Count 310 X10*3/uL (160-400); Red Blood Count 5.06 X10*6/uL (4.60-5.80); Red Cell Distribution Width 11.9 % (11.0-16.0); White Blood Count 7.5 X10*3/uL (4.8-10.8)
[2024-07-18 12:16] LABS: Alanine Aminotransferase 49 U/L (0-40); Albumin Level 4.2 g/dL (3.5-5.0); Alkaline Phosphatase 79 U/L (39-117); Anion Gap 8 (12-20); Aspartate Amino Transferase 26 U/L (5-37); Bilirubin Direct 0.2 mg/dL (0.0-0.5); Bilirubin Total 0.6 mg/dL (0.0-1.0); Blood Urea Nitrogen 10 mg/dL (9-16); Carbon Dioxide 27 mmol/L (22-29); Chloride 109 mmol/L (96-108); Creatinine Clr Calc Pharmacy 192.2; Estimated Glomerular Filt Rate > 60; Glucose Random 97 mg/dL (60-115); Lipase 14 U/L (8-78); Magnesium 2.1 mg/dL (1.6-2.6); Potassium 4.1 mmol/L (3.3-5.1); Sodium 140 mmol/L (135-145)
--- NOTE | 2024-07-18 13:01 | ED.ABDPAIN ---
HPI - Abdominal Pain General Chief Complaint: Abdominal Pain Stated Complaint: stomach issues Time Seen by Provider: 07/18/24 11:39 Source: patient, RN notes reviewed and old records reviewed Mode of arrival: ambulatory History of Present Illness ED Provider: Opal Miller PA-C HPI narrative: 24-year-old male with a past medical history of gastric ulcers presenting to the ED complaining of acute on chronic diffuse abdominal pain and cramping x awhile. Admits follows with gastroenterology at [facility]. Has been seen in our ED multiple times recently for similar symptoms with negative workup. Reports associated nausea and lightheadedness. Denies fever, chills, vomiting, diarrhea, constipation, bloody BMs, melena, bloody emesis Related Data Previous Rx's ?Medication ?Instructions ?Recorded omeprazole 20 mg capsule,delayed 20 mg PO DAILY #14 caps 04/02/24 release ondansetron 4 mg disintegrating 4 mg PO Q8H PRN nausea and 04/02/24 tablet vomiting #20 tabs ondansetron 4 mg disintegrating 4 mg PO Q6-8H PRN nausea and 05/13/24 tablet vomiting #20 tabs famotidine 10 mg tablet 10 mg PO DAILY 7 days #7 tabs 07/11/24 omeprazole 40 mg capsule,delayed 40 mg PO DAILY 1 week #7 caps 07/11/24 release sucralfate 100 mg/mL oral 5 ml PO QID #414 mL 07/11/24 suspension (Carafate) Allergies Allergy/AdvReac Type Severity Reaction Status Date / Time No Known Allergies Allergy Verified 07/18/24 10:05 Review of Systems Review of Systems Yes all other systems are reviewed and are negative Constitutional: Reports as per [facility] Past Medical History Attestation statement: The following information was validated with the patient. Source: old records reviewed Medical History No pertinent past medical history Social History Social History Alcohol intake: former Patient Tobacco Use Status: Never used Tobacco Smoked in Last 30 Days: No Use of substances other than those prescribed or required for medical reasons: No Substance Use Type: Marijuana Advance Directives: No Advance Directives Information Provided: Yes Do you have a plan to hurt others: No Plan Physical Exam ED Vital Signs: Vital Signs - 24 hr 07/18/24 10:05 07/18/24 13:46 Temperature 97.9 F 98.0 F Pulse Rate 77 70 Respiratory Rate 18 18 Blood Pressure 113/63 120/64 Pulse Oximetry 96 97 Oxygen Delivery Method Room Air Room Air BMI result Body Mass Index 49.4 Const General: cooperative, healthy appearing and no acute distress Orientation/consciousness: patient oriented x3 Limitations: no limitations HENMT Head: Yes normal to inspection and Yes atraumatic Ears: hearing grossly normal bilaterally General nose exam: Normal external nose present Face and sinus: Yes normal facial exam Throat: Yes posterior oropharynx normal Eyes General: appearance normal, both eyes and all related structures EOM: EOMs intact bilaterally Neck Neck: Yes normal visual inspection and Yes no meningeal signs Resp Effort & Inspection: normal respiratory effort and no respiratory distress Auscultation: clear to auscultation bilaterally Cardio Rate: regular rate Heart sounds: S1 normal heart sound present and S2 normal heart sound present GI Inspection: Yes normal to inspection Palpation (GI): Soft to palpation, nontender, no guarding and not rigid General: Yes no CVA tenderness Back/Spine/Pelvis Back: no CVA tenderness Skin Rashes: no rashes Wounds: no wounds Neuro General: patient oriented x3, tone normal and no meningeal signs Cranial nerves: Yes CN's II-XII intact bilaterally Gait exam (Neuro): Normal gait present Extrem General: Yes normal to inspection Course Course Course Narrative: -1305--labs unremarkable >1339--patient did not supply urine sample. Would like to be discharged home. Reports symptomatic improvement Results discussed with patient including worrisome signs and symptoms and strict return precautions, and when to return to the emergency department. They verbalized understanding and feel safe for discharge at this time. Medical Decision Making Medical Decision Making MDM Narrative: 24-year-old male with a past medical history of gastric ulcers presenting to the ED complaining of acute on chronic diffuse abdominal pain and cramping x awhile. On exam vital signs stable, NAD, nontoxic appearing, abdomen soft nontender, no CVAT. Concern for acute on chronic abdominal pain vs PUD vs gastritis vs GERD. Low suspicion for acute pancreatitis, cholecystitis/lithiasis, appendicitis or diverticulitis without tenderness on exam Patient with recent labs were unremarkable, negative ultrasound on 05/07/2024 that was unremarkable No need for imaging at this time with nontender abdomen Plan: Labs, UA Please refer to course for remaining clinical decision making, interpretation of labs/imaging results, and discussions with consultants and/or family members. Differential Diagnosis Differential Diagnoses: The differential diagnosis associated with the presentation includes As above Admission/Observation Consideration of admission/observation: Escalation of care including admission/observation considered Lab Data MDM Lab Attestation statement: I reviewed the patient's lab results. 07/18/24 11:56 07/18/24 11:56 Labs: Lab Results 07/18/24 Range/Units 11:56 WBC 7.5 (4.8-10.8) X10*3/uL RBC 5.06 (4.60-5.80) X10*6/uL Hgb 14.8 (14.0-18.0) g/dl Hct 42.4 (42.0-52.0) % MCV 83.8 (80.0-98.0) fL MCH 29.2 (27.0-33.0) pg MCHC 34.9 (31.0-36.0) g/dl RDW 11.9 (11.0-16.0) % Plt Count 310 (160-400) X10*3/uL MPV 9.6 (9.4-12.4) fL Immature Gran % (Auto) 0.5 H (0.0-0.4) % Neut % (Auto) 71.6 (45-73) % Lymph % (Auto) 19.7 L (20-40) % [place] % (Auto) 6.6 (2-11) % Eos % (Auto) 1.2 (0-4) % Baso % (Auto) 0.4 (0-2) % Lymph # (Auto) 1.5 (1.2-4.9) X10*3/uL [place] # (Auto) 0.5 (0.1-1.2) X10*3/uL Eos # (Auto) 0.1 (0.0-0.4) X10*3/uL Baso # (Auto) 0.0 (0.0-0.2) X10*3/uL Abs Immat Gran (auto) 0.04 H (0.00-0.03) X10*3/uL Absolute Neuts (auto) 5.3 (2.0-8.3) x10*3/uL Absolute Nucleated RBC 0.000 (0.0-0.012) X10*3/uL Nucleated RBC % (auto) 0.0 (0.0-0.2) /100WBC Sodium 140 (135-145) mmol/L Potassium 4.1 (3.3-5.1) mmol/L Chloride 109 H (96-108) mmol/L Carbon Dioxide 27 (22-29) mmol/L Anion Gap 8 L (12-20) BUN 10 (9-16) mg/dL Creatinine 0.96 (0.5-1.4) mg/dL Estim Creat Clear Calc 192.2 Estimated GFR > 60 Random Glucose 97 (60-115) mg/dL Calcium 10.0 D (8.4-10.2) mg/dL Magnesium 2.1 (1.6-2.6) mg/dL Total Bilirubin 0.6 (0.0-1.0) mg/dL Direct Bilirubin 0.2 (0.0-0.5) mg/dL AST 26 (5-37) U/L ALT 49 H (0-40) U/L Alkaline Phosphatase 79 (39-117) U/L Total Protein 7.0 (6.5-8.0) g/dL Albumin 4.2 (3.5-5.0) g/dL Lipase 14 (8-78) U/L Radiology Impression Discussion of test interpretation with radiology: I have reviewed the radiologist's reading. External Record Review External record reviewed: Inpatient record, Office record, Outpatient record, Prior outpatient labs, Prior outpatient radiology, Primary care record and Outside ED record Tests considered The following testing was considered but not selected: As above Prescription Management I considered prescription management with: Pain Medication Medications Administered Discontinued Medications Generic Name Dose Route Start Last Admin Trade Name Freq PRN Reason Stop Dose Admin Al Hydroxide/Mg Hydroxide 30 ml 07/18/24 11:49 07/18/24 11:57 Magnesium Hydrox/Alum Hydrox 30 Ml Oral.Susp PO 07/18/24 11:50 30 ml ONCE ONE Administration Dicyclomine HCl 10 mg 07/18/24 11:49 07/18/24 11:57 Dicyclomine Hcl 10 Mg Capsule PO 07/18/24 11:50 10 mg ONCE ONE Administration Discharge Plan Discharge Clinical Impression: Abdominal pain Patient Disposition: Home, Self-Care Instructions: Abdominal Pain (ED) Additional Instructions: Your blood work is reassuring Please continue home prescribed medications Please follow-up with gastroenterology Call to make an appointment Avoid spicy foods, sweets, caffeine, chocolate If her symptoms persist or worsen return to the ED Prescriptions: No Action ondansetron 4 mg tablet,disintegrating 4 mg PO Q6-8H PRN (Reason: nausea and vomiting) Qty: 20 0RF omeprazole 40 mg capsule,delayed release(DR/EC) 40 mg PO DAILY 7 Days Qty: 7 0RF famotidine 10 mg tablet 10 mg PO DAILY 7 Days Qty: 7 0RF sucralfate [Carafate] 100 mg/mL suspension 5 ml PO QID Qty: 414 0RF Rx Instructions: swish in mouth and swallow; use after food/drink ondansetron 4 mg tablet,disintegrating 4 mg PO Q8H PRN (Reason: nausea and vomiting) Qty: 20 0RF omeprazole 20 mg capsule,delayed release(DR/EC) 20 mg PO DAILY Qty: 14 0RF Referrals: [facility] [place] Gastroenterology Services [Provider Group] Stand Alone Forms: Work/School Release Interventions: ED Discharge Assessment Last Done: 07/18/24 13:46 Discharge Date/Time: 07/18/24 13:53 Print Language: Albanian
[2024-07-18 13:46] VITALS: BP 120/64; PULSE 70; RESP 18; TEMP 36.7; O2SAT 97
== END 2024-07-18 13:53 | disposition home or self-care (01) ==
PROVIDERS: Physician Assistant; Emergency Provider Emergency Medicine Emergency Medical Services
DX: R25.2 Cramp and spasm (principal); Z79.899 Other long term (current) drug therapy
CPT/HCPCS: 36415; 80048; 80076; 83690; 83735; 85025; 99283; 99284

== ENCOUNTER 2024-08-05 08:50 | Emergency (ER) | payer OTHER, SELFPAY ==
[2024-08-05 09:10] VITALS: BP 108/60; PULSE 81; RESP 18; TEMP 36.9; O2SAT 97; BMI 45.1
[2024-08-05 09:54] LABS: MANUAL DIFF FLAG NO
[2024-08-05 09:58] LABS: Basophils Percent Auto 0.3 % (0-2); Eosinophils Absolute Auto 0.1 X10*3/uL (0.0-0.4); Eosinophils Percent Auto 1.1 % (0-4); Hematocrit 46.4 % (42.0-52.0); Hemoglobin 15.7 g/dl (14.0-18.0); Imm Gran Abs Auto 0.04 X10*3/uL (0.00-0.03); Imm Gran Pct Auto 0.4 % (0.0-0.4); Lymphocytes Absolute Auto 1.7 X10*3/uL (1.2-4.9); Mean Corpuscular HGB Conc 33.8 g/dl (31.0-36.0); Mean Corpuscular Hemoglobin 28.9 pg (27.0-33.0); Mean Corpuscular Volume 85.3 fL (80.0-98.0); Mean Platelet Volume 9.6 fL (9.4-12.4); Monocytes Absolute Auto 0.6 X10*3/uL (0.1-1.2); Monocytes Percent Auto 6.7 % (2-11); Neutrophils Absolute Auto 6.8 x10*3/uL (2.0-8.3); Neutrophils Percent Auto 73.5 % (45-73); Platelet Count 305 X10*3/uL (160-400); Red Blood Count 5.44 X10*6/uL (4.60-5.80); Red Cell Distribution Width 12.3 % (11.0-16.0); White Blood Count 9.3 X10*3/uL (4.8-10.8)
--- NOTE | 2024-08-05 10:19 | ED.ABDPAIN ---
HPI - Abdominal Pain General Chief Complaint: Abdominal Pain Stated Complaint: Abd pain Time Seen by Provider: 08/05/24 10:13 Source: patient, RN notes reviewed and old records reviewed Mode of arrival: ambulatory History of Present Illness ED Provider: Opal Miller PA-C HPI narrative: 24-year-old male with a past medical history of gastric ulcers presenting to the ED complaining of acute on chronic abdominal pain, nausea, and nonbloody vomiting x months. States has an endoscopy scheduled in November at [facility], currently takes esomeprazole and sucralfate without relief. Admits eating exacerbates symptoms. Denies fever, chills, diarrhea/constipation, bloody BMs/melena, fever Related Data Previous Rx's ?Medication ?Instructions ?Recorded omeprazole 20 mg capsule,delayed 20 mg PO DAILY #14 caps 04/02/24 release ondansetron 4 mg disintegrating 4 mg PO Q8H PRN nausea and 04/02/24 tablet vomiting #20 tabs ondansetron 4 mg disintegrating 4 mg PO Q6-8H PRN nausea and 05/13/24 tablet vomiting #20 tabs famotidine 10 mg tablet 10 mg PO DAILY 7 days #7 tabs 07/11/24 omeprazole 40 mg capsule,delayed 40 mg PO DAILY 1 week #7 caps 07/11/24 release sucralfate 100 mg/mL oral 5 ml PO QID #414 mL 07/11/24 suspension (Carafate) dicyclomine 10 mg capsule 10 mg PO QID PRN abdominal pain 08/05/24 #14 caps Allergies Allergy/AdvReac Type Severity Reaction Status Date / Time No Known Allergies Allergy Verified 08/05/24 09:14 Review of Systems Review of Systems Yes all other systems are reviewed and are negative Constitutional: Reports as per [facility] Past Medical History Attestation statement: The following information was validated with the patient. Source: old records reviewed Medical History No pertinent past medical history Social History Social History Alcohol intake: former Patient Tobacco Use Status: Never used Tobacco Substance Use Type: Marijuana Advance Directives: No Advance Directives Information Provided: Yes Do you have a plan to hurt others: No Plan Physical Exam ED Vital Signs: Vital Signs - 24 hr 08/05/24 09:10 08/05/24 11:06 08/05/24 11:45 Temperature 98.5 F 98.7 F 98.1 F Pulse Rate 81 59 70 Respiratory Rate 18 15 19 Blood Pressure 108/60 122/75 146/95 H Pulse Oximetry 97 99 98 Oxygen Delivery Method Room Air Room Air Room Air BMI result Body Mass Index 45.1 Const General: cooperative, healthy appearing and no acute distress Orientation/consciousness: patient oriented x3 Limitations: no limitations HENMT Head: Yes normal to inspection and Yes atraumatic Ears: hearing grossly normal bilaterally General nose exam: Normal external nose present Face and sinus: Yes normal facial exam Eyes General: appearance normal, both eyes and all related structures EOM: EOMs intact bilaterally Neck Neck: Yes normal visual inspection and Yes no meningeal signs Resp Effort & Inspection: normal respiratory effort and no respiratory distress Auscultation: clear to auscultation bilaterally Cardio Rate: regular rate Heart sounds: S1 normal heart sound present and S2 normal heart sound present GI Inspection: Yes normal to inspection Palpation (GI): Soft to palpation, nontender, no guarding and not rigid General: Yes no CVA tenderness Back/Spine/Pelvis Back: no CVA tenderness Skin Rashes: no rashes Wounds: no wounds Neuro General: patient oriented x3, tone normal and no meningeal signs Cranial nerves: Yes CN's II-XII intact bilaterally Gait exam (Neuro): Normal gait present Extrem General: Yes normal to inspection Course Course Course Narrative: -labs reassuring > patient tolerating p.o. in the ED without difficulty. Discussed needed GI follow-up Medical Decision Making Medical Decision Making MDM Narrative: 24-year-old male with a past medical history of gastric ulcers presenting to the ED complaining of acute on chronic abdominal pain, nausea, and nonbloody vomiting x months. On exam vital signs stable, NAD, nontoxic appearing, abdomen is soft and nontender, no CVAT. Concern for acute on chronic abdominal pain secondary to PUD vs gastritis vs GERD. Low suspicion for acute cholecystitis/lithiasis, pancreatitis, appendicitis or diverticulitis at this time Plan: Labs, UA, p.o. Pepcid/Maalox, p.o. challenge, re-evaluate No need for imaging at this time with nontender abdomen Please refer to course for remaining clinical decision making, interpretation of labs/imaging results, and discussions with consultants and/or family members. Differential Diagnosis Differential Diagnoses: The differential diagnosis associated with the presentation includes As above Admission/Observation Consideration of admission/observation: Escalation of care including admission/observation considered Lab Data MDM Lab Attestation statement: I reviewed the patient's lab results. 08/05/24 09:50 08/05/24 09:50 Labs: Lab Results 08/05/24 08/05/24 Range/Units 09:50 11:16 WBC 9.3 (4.8-10.8) X10*3/uL RBC 5.44 (4.60-5.80) X10*6/uL Hgb 15.7 (14.0-18.0) g/dl Hct 46.4 (42.0-52.0) % MCV 85.3 (80.0-98.0) fL MCH 28.9 (27.0-33.0) pg MCHC 33.8 (31.0-36.0) g/dl RDW 12.3 (11.0-16.0) % Plt Count 305 (160-400) X10*3/uL MPV 9.6 (9.4-12.4) fL Immature Gran % (Auto) 0.4 (0.0-0.4) % Neut % (Auto) 73.5 H (45-73) % Lymph % (Auto) 18.0 L (20-40) % [place] % (Auto) 6.7 (2-11) % Eos % (Auto) 1.1 (0-4) % Baso % (Auto) 0.3 (0-2) % Lymph # (Auto) 1.7 (1.2-4.9) X10*3/uL [place] # (Auto) 0.6 (0.1-1.2) X10*3/uL Eos # (Auto) 0.1 (0.0-0.4) X10*3/uL Baso # (Auto) 0.0 (0.0-0.2) X10*3/uL Abs Immat Gran (auto) 0.04 H (0.00-0.03) X10*3/uL Absolute Neuts (auto) 6.8 (2.0-8.3) x10*3/uL Absolute Nucleated RBC 0.000 (0.0-0.012) X10*3/uL Nucleated RBC % (auto) 0.0 (0.0-0.2) /100WBC Sodium 141 (135-145) mmol/L Potassium 3.8 (3.3-5.1) mmol/L Chloride 108 (96-108) mmol/L Carbon Dioxide 27 (22-29) mmol/L Anion Gap 10 L (12-20) BUN 10 (9-16) mg/dL Creatinine 0.89 (0.5-1.4) mg/dL Estim Creat Clear Calc 208.2 Estimated GFR > 60 Random Glucose 100 (60-115) mg/dL Calcium 9.7 (8.4-10.2) mg/dL Magnesium 2.0 (1.6-2.6) mg/dL Total Bilirubin 0.6 (0.0-1.0) mg/dL Direct Bilirubin 0.2 (0.0-0.5) mg/dL AST 40 H (5-37) U/L ALT 61 H (0-40) U/L Alkaline Phosphatase 88 (39-117) U/L Total Protein 7.1 (6.5-8.0) g/dL Albumin 4.3 (3.5-5.0) g/dL Lipase 16 (8-78) U/L Urine Color Yellow Urine Appearance Clear Urine pH 6.0 (5.0-9.0) Ur Specific [place] 1.025 (1.005-1.025) Urine Protein Negative (Neg-Trace) mg/dL Urine Glucose (UA) Negative (Negative) mg/dL Urine Ketones Negative (Negative) mg/dL Urine Blood Negative (Negative) Urine Nitrite Negative (Negative) Ur Leukocyte Esterase Negative (Negative) Radiology Impression Discussion of test interpretation with radiology: I have reviewed the radiologist's reading. External Record Review External record reviewed: Inpatient record, Office record, Outpatient record, Prior outpatient labs, Prior outpatient radiology, Primary care record and Outside ED record Tests considered The following testing was considered but not selected: As above Prescription Management I considered prescription management with: Pain Medication Social Determinants Patient?s care significantly limited by Social Determinants of Health including: Problems related to primary support group and Other Social Determinant of Health Medications Administered Discontinued Medications Generic Name Dose Route Start Last Admin Trade Name Freq PRN Reason Stop Dose Admin Al Hydroxide/Mg Hydroxide 30 ml 08/05/24 10:18 08/05/24 10:32 Magnesium Hydrox/Alum Hydrox 30 Ml Oral.Susp PO 08/05/24 10:19 30 ml ONCE ONE Administration Famotidine 20 mg 08/05/24 10:18 08/05/24 10:32 Famotidine 20 Mg Tablet PO 08/05/24 10:19 20 mg ONCE ONE Administration Discharge Plan Discharge Clinical Impression: Abdominal pain Patient Disposition: Home, Self-Care Instructions: Abdominal Pain (ED) Additional Instructions: Your blood work is reassuring YOU NEED TO FOLLOW-UP WITH GASTROENTEROLOGY, CALL TO MAKE A SOONER APPOINTMENT Continue home prescribed medications In addition Jimena will help with abdominal spasming/pain, take as needed If her symptoms persist or worsen, you are unable to eat or drink or develop fever return to the ED Prescriptions: New dicyclomine 10 mg capsule 10 mg PO QID PRN (Reason: abdominal pain) Qty: 14 0RF No Action ondansetron 4 mg tablet,disintegrating 4 mg PO Q6-8H PRN (Reason: nausea and vomiting) Qty: 20 0RF omeprazole 40 mg capsule,delayed release(DR/EC) 40 mg PO DAILY 7 Days Qty: 7 0RF famotidine 10 mg tablet 10 mg PO DAILY 7 Days Qty: 7 0RF sucralfate [Carafate] 100 mg/mL suspension 5 ml PO QID Qty: 414 0RF Rx Instructions: swish in mouth and swallow; use after food/drink ondansetron 4 mg tablet,disintegrating 4 mg PO Q8H PRN (Reason: nausea and vomiting) Qty: 20 0RF omeprazole 20 mg capsule,delayed release(DR/EC) 20 mg PO DAILY Qty: 14 0RF Referrals: [facility] [place] Gastroenterology Services [Provider Group] Stand Alone Forms: Work/School Release Interventions: ED Discharge Assessment Last Done: 08/05/24 11:45 Discharge Date/Time: 08/05/24 11:46 Print Language: Italian
[2024-08-05 10:27] LABS: Albumin Level 4.3 g/dL (3.5-5.0); Alkaline Phosphatase 88 U/L (39-117); Anion Gap 10 (12-20); Aspartate Amino Transferase 40 U/L (5-37); Bilirubin Direct 0.2 mg/dL (0.0-0.5); Bilirubin Total 0.6 mg/dL (0.0-1.0); Blood Urea Nitrogen 10 mg/dL (9-16); Calcium 9.7 mg/dL (8.4-10.2); Carbon Dioxide 27 mmol/L (22-29); Chloride 108 mmol/L (96-108); Creatinine Clr Calc Pharmacy 208.2; Estimated Glomerular Filt Rate > 60; Glucose Random 100 mg/dL (60-115); Lipase 16 U/L (8-78); Potassium 3.8 mmol/L (3.3-5.1); Sodium 141 mmol/L (135-145); Total Protein 7.1 g/dL (6.5-8.0)
[2024-08-05] MEDS: Famotidine 20 MG TABLET PO (10:32)
[2024-08-05] MEDS: Magnesium Hydrox/Alum Hydrox 30 ML ORAL.SUSP PO (10:32)
[2024-08-05 10:55] LABS: Alanine Aminotransferase 61 U/L (0-40)
[2024-08-05 11:06] VITALS: BP 122/75; PULSE 59; RESP 15; TEMP 37.1; O2SAT 99
[2024-08-05 11:31] LABS: Appearance Urine Clear; Color Urine Yellow; Glucose Urine UA Negative (Negative); Leukocyte Esterase Urine Negative (Negative); Nitrite Urine Negative (Negative); Specific Gravity - Urine 1.025 (1.005-1.025); Urine Blood Negative (Negative); Urine Ketones Negative (Negative); Urine Protein Negative (Neg-Trace)
[2024-08-05 11:45] VITALS: BP 146/95; PULSE 70; RESP 19; TEMP 36.7; O2SAT 98
== END 2024-08-05 11:46 | disposition home or self-care (01) ==
PROVIDERS: Physician Assistant; Emergency Provider Emergency Medicine
DX: R10.9 Unspecified abdominal pain (principal)
CPT/HCPCS: 36415; 80053; 81003; 82248; 83690; 83735; 85025; 99283

== ENCOUNTER 2024-08-08 09:27 | Emergency (ER) | payer OTHER, SELFPAY ==
--- NOTE | ~2024-08-08 | CT_ITS ---
EXAMINATION: CT ABDOMEN AND PELVIS WITH CONTRAST CLINICAL INFORMATION: Lower abdominal pain. COMPARISON: None available. TECHNIQUE: Multidetector volumetric images were obtained from the superior aspect of the liver through the pubic symphysis following administration 85 mL of Omnipaque 300 intravenous contrast. Sagittal and coronal reformatted images were obtained on the technologist's workstation. Oral contrast: No This CT examination was performed using dose optimization techniques as appropriate, variously including the following: *Automated exposure control *Adjustment of mA and/or kV according to patient size (this includes techniques or standardized protocols for targeted exams where dose is matched to indication/reason for exam; i.e. extremities or head) *Use of iterative reconstruction technique DLP: 1339 mGy-cm FINDINGS: LUNG BASES: The lung bases appear clear, with no evidence of inflammation or nodules. LIVER, GALLBLADDER, AND BILIARY TREE: The liver appears unremarkable in size, shape, and attenuation. No focal hepatic lesion or biliary ductal dilatation is appreciated. Unremarkable appearance of the gallbladder. PANCREAS: Unremarkable SPLEEN: Measures approximately 13 cm in sagittal dimension. ADRENAL GLANDS: Unremarkable KIDNEYS AND URETERS: The kidneys appear unremarkable in size, shape, and attenuation. No hydronephrosis, hydroureter, or calculi seen. BLADDER: Unremarkable GASTROINTESTINAL TRACT: The small and large bowel appear unremarkable. No diverticulosis. Normal-appearing distal ileum and vermiform appendix. ABDOMINAL WALL: No significant hernia is appreciated. LYMPH NODES: No evidence of adenopathy by size criteria. VASCULAR: Unremarkable PELVIC VISCERA: Unremarkable OSSEOUS STRUCTURES: Unremarkable CT/CT abdomen pelvis w IV con IMPRESSION: No acute finding. Borderline mild splenomegaly. Electronically signed by: Osito Kwan MD 08/08/2024 02:19 PM EST
[2024-08-08 09:31] VITALS: BP 118/80; PULSE 79; RESP 18; TEMP 37.1; O2SAT 99; BMI 44.9
--- NOTE | 2024-08-08 09:38 | ED_ITS ---
HPI - Abdominal Pain General Chief Complaint: Abdominal Pain Stated Complaint: abd pain Time Seen by Provider: 08/08/24 09:38 Source: patient Mode of arrival: ambulatory Limitations: no limitations History of Present Illness ED Provider: Dani Pagan PA-C HPI narrative: 24 yo male with history of gastric ulcers who presents to the ER for the 3rd time this month for evaluation of abdominal pain. He reports he has been suffering from abdominal pain since March. He has been following with GI at [facility]. He he is currently on as esomprazole 40 mg BID. he reports aching lower abdominal pain at present with nausea, poor p.o. intake. He denies any vomiting or diarrhea. He had a normal bowel movement yesterday. He states when he gets the pain it is aching and diffuse. no urinary symptoms. no fever, chills. He has an EGD scheduled in November, unable to get in sooner. He is worried he has h. pylori and is frustrated he cannot get tested unless he is off of his PPI. MD elicited complaint: abdominal pain Pertinent past history: other (gastric ulcers) Onset (ago): week(s) Pain Consistency: intermittent Location: diffuse Severity: moderate Quality: aching Radiation: none Migration to: no migration Exacerbating factors: eating Relieving factors: nothing Context: history of similar episodes Associated symptoms: nausea Related Data Previous Rx's ?Medication ?Instructions ?Recorded omeprazole 20 mg capsule,delayed 20 mg PO DAILY #14 caps 04/02/24 release ondansetron 4 mg disintegrating 4 mg PO Q8H PRN nausea and 04/02/24 tablet vomiting #20 tabs ondansetron 4 mg disintegrating 4 mg PO Q6-8H PRN nausea and 05/13/24 tablet vomiting #20 tabs famotidine 10 mg tablet 10 mg PO DAILY 7 days #7 tabs 07/11/24 omeprazole 40 mg capsule,delayed 40 mg PO DAILY 1 week #7 caps 07/11/24 release sucralfate 100 mg/mL oral 5 ml PO QID #414 mL 07/11/24 suspension (Carafate) dicyclomine 10 mg capsule 10 mg PO QID PRN abdominal pain 08/05/24 #14 caps sucralfate 100 mg/mL oral 10 ml PO .before meals #420 mL 08/08/24 suspension (Carafate) Allergies Allergy/AdvReac Type Severity Reaction Status Date / Time No Known Allergies Allergy Verified 08/08/24 09:31 Review of Systems Review of Systems Yes all other systems are reviewed and are negative FOR[facility] Past Medical History Medical History No pertinent past medical history Social History Social History Alcohol intake: former Patient Tobacco Use Status: Never used Tobacco Smoked in Last 30 Days: No Substance Use Type: Marijuana Advance Directives: No Advance Directives Information Provided: Yes Do you have a plan to hurt others: No Plan Physical Exam ED Vital Signs: Vital Signs - 24 hr 08/08/24 09:31 08/08/24 10:00 08/08/24 12:00 Temperature 98.7 F Pulse Rate 79 66 Respiratory Rate 18 17 16 Blood Pressure 118/80 138/77 Pulse Oximetry 99 96 Oxygen Delivery Method Room Air Room Air 08/08/24 14:00 08/08/24 14:42 Temperature 98.0 F Pulse Rate 65 65 Respiratory Rate 16 18 Blood Pressure 116/74 116/74 Pulse Oximetry 98 98 Oxygen Delivery Method Room Air Room Air BMI result Body Mass Index 44.9 Appearance: Alert. Oriented X3. No acute distress. Head: normocephalic, atraumatic. Eyes: Pupils equal, round and reactive to light. ENT: Pharynx normal. No tonsillar swelling or exudate. Neck: Normal inspection. Neck supple. CVS: Normal heart rate and rhythm. Pulses normal. Respiratory: No respiratory distress. Breath sounds normal. Abdomen: obese, soft with mild lower abdominal tenderness, no rebound or guarding. negative murphys sign. normal active +BS x4 Skin: Skin warm and dry. Normal skin color. Normal skin turgor. No rashes. Extremities: No lower extremity edema. No joint swelling. Neuro/psych: Oriented X 3. No motor deficit. No sensory deficit. CN II-XII intact. Normal speech and cognition. Medical Decision Making Medical Decision Making MDM Narrative: 24-year-old male presents to the ER for evaluation of acute on chronic abdominal pain. Symptoms have been going on for 5 months. Overall improved with PPI high dose. He also reports intermittent improvement with Carafate in the past. He follows with GI at [facility] and is due for endoscopy in the spring. He wants to get one done sooner as he is concerned about H pylori. At present he is denying any epigastric or left upper quadrant pain, his pain is primarily in his lower abdomen. labs are unremarkable. CT scan was done which was also unremarkable. will restart carafate as patient reported improvement with this in the past encouraged bland diet for now but he states that never gets him full enough he states he will try stable for d/c home with dietary modifications and GI follow up Differential Diagnosis Differential Diagnoses: The differential diagnosis associated with the presentation includes gastritis, gerd, colitis, IBS, PUD, food intolerance Lab Data MDM Lab Attestation statement: I reviewed the patient's lab results. no significant metabolic derangement 08/08/24 09:40 08/08/24 09:40 Labs: Lab Results 08/08/24 08/08/24 Range/Units 09:40 12:29 WBC 7.7 (4.8-10.8) X10*3/uL RBC 5.37 (4.60-5.80) X10*6/uL Hgb 15.6 (14.0-18.0) g/dl Hct 44.8 (42.0-52.0) % MCV 83.4 (80.0-98.0) fL MCH 29.1 (27.0-33.0) pg MCHC 34.8 (31.0-36.0) g/dl RDW 12.0 (11.0-16.0) % Plt Count 316 (160-400) X10*3/uL MPV 9.6 (9.4-12.4) fL Immature Gran % (Auto) 0.4 (0.0-0.4) % Neut % (Auto) 65.5 (45-73) % Lymph % (Auto) 23.5 (20-40) % [place] % (Auto) 7.6 (2-11) % Eos % (Auto) 2.6 (0-4) % Baso % (Auto) 0.4 (0-2) % Lymph # (Auto) 1.8 (1.2-4.9) X10*3/uL [place] # (Auto) 0.6 (0.1-1.2) X10*3/uL Eos # (Auto) 0.2 (0.0-0.4) X10*3/uL Baso # (Auto) 0.0 (0.0-0.2) X10*3/uL Abs Immat Gran (auto) 0.03 (0.00-0.03) X10*3/uL Absolute Neuts (auto) 5.1 (2.0-8.3) x10*3/uL Absolute Nucleated RBC 0.000 (0.0-0.012) X10*3/uL Nucleated RBC % (auto) 0.0 (0.0-0.2) /100WBC Sodium 140 (135-145) mmol/L Potassium 3.8 (3.3-5.1) mmol/L Chloride 109 H (96-108) mmol/L Carbon Dioxide 24 (22-29) mmol/L Anion Gap 11 L (12-20) BUN 12 (9-16) mg/dL Creatinine 0.96 (0.5-1.4) mg/dL Estim Creat Clear Calc 192.6 Estimated GFR > 60 Random Glucose 100 (60-115) mg/dL Calcium 9.0 D (8.4-10.2) mg/dL Total Bilirubin 0.6 (0.0-1.0) mg/dL AST 28 (5-37) U/L ALT 47 H (0-40) U/L Alkaline Phosphatase 78 (39-117) U/L Total Protein 6.9 (6.5-8.0) g/dL Albumin 4.2 (3.5-5.0) g/dL Lipase 21 (8-78) U/L Urine Color Yellow Urine Appearance Clear Urine pH 6.5 (5.0-9.0) Ur Specific [place] >= 1.030 H (1.005-1.025) Urine Protein Negative (Neg-Trace) mg/dL Urine Glucose (UA) Negative (Negative) mg/dL Urine Ketones Trace (Negative) mg/dL Urine Blood Negative (Negative) Urine Nitrite Negative (Negative) Ur Leukocyte Esterase Negative (Negative) Independent Interpretation I performed an independent interpretation of an: CT Scan Interpretation: no air/fluid levels to suggest obstruction, no colonic stranding or abscess, no free air Radiology Impression Discussion of test interpretation with radiology: I have reviewed the radiologist's reading. Radiologist Impression: CT/CT abdomen pelvis w IV con IMPRESSION: No acute finding. Borderline mild splenomegaly External Record Review External record reviewed: Prior outpatient labs and Prior outpatient radiology Prescription Management I considered prescription management with: Pain Medication Chronic Conditions Patient?s care impacted by: Other (morbid obesity) Medications Administered Discontinued Medications Generic Name Dose Route Start Last Admin Trade Name Freq PRN Reason Stop Dose Admin Iohexol 100 ml 08/08/24 10:55 08/08/24 10:56 Iohexol 350 Mg/Ml 100 Ml Infus..Btl IV 08/08/24 10:56 85 ml ONCE ONE Administration Critical Care Time Critical Care Time Critical Care Time: No Discharge Plan Discharge Clinical Impression: Abdominal pain Qualifiers: Abdominal location: generalized Qualified Code(s): R10.84 - Generalized abdominal pain Patient Disposition: Home, Self-Care Instructions: Chronic Abdominal Pain (ED) Additional Instructions: your CT scan today was normal start carafate before meals stick to a bland diet and slowly reintroduce things as your symptoms allow follow up with your GI doctor Prescriptions: New sucralfate [Carafate] 100 mg/mL suspension 10 ml PO .before meals Qty: 420 0RF No Action ondansetron 4 mg tablet,disintegrating 4 mg PO Q6-8H PRN (Reason: nausea and vomiting) Qty: 20 0RF omeprazole 40 mg capsule,delayed release(DR/EC) 40 mg PO DAILY 7 Days Qty: 7 0RF famotidine 10 mg tablet 10 mg PO DAILY 7 Days Qty: 7 0RF sucralfate [Carafate] 100 mg/mL suspension 5 ml PO QID Qty: 414 0RF Rx Instructions: swish in mouth and swallow; use after food/drink ondansetron 4 mg tablet,disintegrating 4 mg PO Q8H PRN (Reason: nausea and vomiting) Qty: 20 0RF omeprazole 20 mg capsule,delayed release(DR/EC) 20 mg PO DAILY Qty: 14 0RF dicyclomine 10 mg capsule 10 mg PO QID PRN (Reason: abdominal pain) Qty: 14 0RF Stand Alone Forms: Work/School Release Interventions: ED Discharge Assessment Last Done: 08/08/24 14:42 Discharge Date/Time: 08/08/24 14:42 Print Language: Finnish
[2024-08-08 09:50] LABS: MANUAL DIFF FLAG NO
[2024-08-08 09:55] LABS: Basophils Percent Auto 0.4 % (0-2); Eosinophils Absolute Auto 0.2 X10*3/uL (0.0-0.4); Eosinophils Percent Auto 2.6 % (0-4); Hematocrit 44.8 % (42.0-52.0); Hemoglobin 15.6 g/dl (14.0-18.0); Imm Gran Abs Auto 0.03 X10*3/uL (0.00-0.03); Imm Gran Pct Auto 0.4 % (0.0-0.4); Lymphocytes Absolute Auto 1.8 X10*3/uL (1.2-4.9); Lymphocytes Percent Auto 23.5 % (20-40); Mean Corpuscular HGB Conc 34.8 g/dl (31.0-36.0); Mean Corpuscular Hemoglobin 29.1 pg (27.0-33.0); Mean Corpuscular Volume 83.4 fL (80.0-98.0); Mean Platelet Volume 9.6 fL (9.4-12.4); Monocytes Absolute Auto 0.6 X10*3/uL (0.1-1.2); Monocytes Percent Auto 7.6 % (2-11); Neutrophils Absolute Auto 5.1 x10*3/uL (2.0-8.3); Neutrophils Percent Auto 65.5 % (45-73); Platelet Count 316 X10*3/uL (160-400); Red Blood Count 5.37 X10*6/uL (4.60-5.80); White Blood Count 7.7 X10*3/uL (4.8-10.8)
[2024-08-08 10:00] VITALS: RESP 17
[2024-08-08 10:07] LABS: Alanine Aminotransferase 47 U/L (0-40); Albumin Level 4.2 g/dL (3.5-5.0); Alkaline Phosphatase 78 U/L (39-117); Anion Gap 11 (12-20); Aspartate Amino Transferase 28 U/L (5-37); Bilirubin Total 0.6 mg/dL (0.0-1.0); Blood Urea Nitrogen 12 mg/dL (9-16); Carbon Dioxide 24 mmol/L (22-29); Chloride 109 mmol/L (96-108); Creatinine Clr Calc Pharmacy 192.6; Estimated Glomerular Filt Rate > 60; Glucose Random 100 mg/dL (60-115); Potassium 3.8 mmol/L (3.3-5.1); Sodium 140 mmol/L (135-145); Total Protein 6.9 g/dL (6.5-8.0)
[2024-08-08 10:36] LABS: Lipase 21 U/L (8-78)
[2024-08-08] MEDS: iohexoL 350 MG/ML 100 ML INFUS..BTL IV (10:56)
[2024-08-08 12:00] VITALS: BP 138/77; PULSE 66; RESP 16; O2SAT 96
[2024-08-08 12:36] LABS: Appearance Urine Clear; Color Urine Yellow; Glucose Urine UA Negative (Negative); Leukocyte Esterase Urine Negative (Negative); Nitrite Urine Negative (Negative); PH 6.5 (5.0-9.0); Specific Gravity - Urine >= 1.030 (1.005-1.025); Urine Blood Negative (Negative); Urine Ketones Trace mg/dL (Negative); Urine Protein Negative (Neg-Trace)
[2024-08-08 14:00] VITALS: BP 116/74; PULSE 65; RESP 16; O2SAT 98
[2024-08-08 14:42] VITALS: BP 116/74; PULSE 65; RESP 18; TEMP 36.7; O2SAT 98
== END 2024-08-08 14:42 | disposition home or self-care (01) ==
PROVIDERS: Physician Assistant; Emergency Provider Emergency Medicine
DX: R10.84 Generalized abdominal pain (principal); Z79.899 Other long term (current) drug therapy
CPT/HCPCS: 36415; 74177; 80053; 81003; 83690; 85025; 99284; Q9967

== ENCOUNTER 2024-10-09 09:38 | Emergency (ER) | payer OTHER, SELFPAY ==
[2024-10-09 09:52] VITALS: BP 108/65; PULSE 67; RESP 16; TEMP 36.1; O2SAT 94; BMI 44.9
[2024-10-09 11:57] LABS: MANUAL DIFF FLAG NO
[2024-10-09 12:05] LABS: Basophils Percent Auto 0.5 % (0-2); Eosinophils Absolute Auto 0.2 X10*3/uL (0.0-0.4); Eosinophils Percent Auto 1.7 % (0-4); Hematocrit 47.4 % (42.0-52.0); Hemoglobin 16.1 g/dl (14.0-18.0); Imm Gran Abs Auto 0.05 X10*3/uL (0.00-0.03); Imm Gran Pct Auto 0.6 % (0.0-0.4); Lymphocytes Percent Auto 22.5 % (20-40); Mean Corpuscular Hemoglobin 28.6 pg (27.0-33.0); Mean Corpuscular Volume 84.3 fL (80.0-98.0); Mean Platelet Volume 9.6 fL (9.4-12.4); Monocytes Absolute Auto 0.6 X10*3/uL (0.1-1.2); Monocytes Percent Auto 6.4 % (2-11); Neutrophils Percent Auto 68.3 % (45-73); Platelet Count 318 X10*3/uL (160-400); Red Blood Count 5.62 X10*6/uL (4.60-5.80); Red Cell Distribution Width 11.9 % (11.0-16.0); White Blood Count 8.7 X10*3/uL (4.8-10.8)
[2024-10-09 12:13] LABS: Alanine Aminotransferase 45 U/L (0-40); Albumin Level 4.3 g/dL (3.5-5.0); Alkaline Phosphatase 85 U/L (39-117); Anion Gap 10 (12-20); Aspartate Amino Transferase 28 U/L (5-37); Bilirubin Total 0.5 mg/dL (0.0-1.0); Blood Urea Nitrogen 12 mg/dL (9-16); Calcium 9.9 mg/dL (8.4-10.2); Carbon Dioxide 25 mmol/L (22-29); Chloride 111 mmol/L (96-108); Creatinine Clr Calc Pharmacy 190.6; Estimated Glomerular Filt Rate > 60; Glucose Random 91 mg/dL (60-115); Potassium 4.5 mmol/L (3.3-5.1); Sodium 141 mmol/L (135-145); Total Protein 7.6 g/dL (6.5-8.0)
[2024-10-09 13:38] LABS: Appearance Urine Clear; Color Urine Yellow; Glucose Urine UA Negative (Negative); Leukocyte Esterase Urine Negative (Negative); Nitrite Urine Negative (Negative); PH 5.5 (5.0-9.0); Specific Gravity - Urine 1.025 (1.005-1.025); Urine Blood Negative (Negative); Urine Ketones Negative (Negative); Urine Protein Negative (Neg-Trace)
--- NOTE | 2024-10-09 14:19 | ED_ITS ---
HPI - Abdominal Pain General Chief Complaint: Abdominal Pain Stated Complaint: abd pain Time Seen by Provider: 10/09/24 13:47 History of Present Illness HPI narrative: Patient with many months of history of a generalized abdominal pain that is a crampy pain today in the lower abdomen, it has been present he says since March waxing and waning, he has had multiple visits to the ER, he says a GI cocktail helps He has a primary care doctor who has prescribed multiple medications for this chronic pain he is on a proton pump inhibitor, he is on Pepcid and dicyclomine he says they help a little but do not alleviate completely his discomfort He has appointments in the spring for endoscopy and a follow-up with a GI doctor but he has not called the office to see if they could make a more urgent appointment Today he has a diffuse predominantly lower abdominal pain, he has no nausea no vomiting, he had 2 mild episodes of diarrhea yesterday, he has no dysuria no fever, he is not hungry to today because he is nervous it will make his stomach her There is no chest pain no shortness of breath, symptoms today he says are the same as symptoms he has had since March and there is no acute difference today He did have a CT which was normal done in July Related Data Previous Rx's ?Medication ?Instructions ?Recorded omeprazole 20 mg capsule,delayed 20 mg PO DAILY #14 caps 04/02/24 release ondansetron 4 mg disintegrating 4 mg PO Q8H PRN nausea and 04/02/24 tablet vomiting #20 tabs ondansetron 4 mg disintegrating 4 mg PO Q6-8H PRN nausea and 05/13/24 tablet vomiting #20 tabs famotidine 10 mg tablet 10 mg PO DAILY 7 days #7 tabs 07/11/24 omeprazole 40 mg capsule,delayed 40 mg PO DAILY 1 week #7 caps 07/11/24 release sucralfate 100 mg/mL oral 5 ml PO QID #414 mL 07/11/24 suspension (Carafate) dicyclomine 10 mg capsule 10 mg PO QID PRN abdominal pain 08/05/24 #14 caps sucralfate 100 mg/mL oral 10 ml PO .before meals #420 mL 08/08/24 suspension (Carafate) metoclopramide HCl 10 mg tablet 10 mg PO Q6H PRN nausea and 09/25/24 (Reglan) vomiting #20 tabs sucralfate 100 mg/mL oral 10 ml PO BID 7 days #140 mL 09/25/24 suspension (Carafate) Allergies Allergy/AdvReac Type Severity Reaction Status Date / Time No Known Allergies Allergy Verified 10/09/24 09:52 [facility] Past Medical History Source: nursing notes reviewed Medical History No pertinent past medical history Social History Social History Alcohol intake: former Patient Tobacco Use Status: Never used Tobacco Substance Use Type: Marijuana Advance Directives: No Advance Directives Information Provided: Yes Do you have a plan to hurt others: No Plan Physical Exam ED Vital Signs: Vital Signs - 24 hr 10/09/24 09:52 Temperature 96.9 F Pulse Rate 67 Respiratory Rate 16 Blood Pressure 108/65 Pulse Oximetry 94 Oxygen Delivery Method Room Air BMI result Body Mass Index 44.9 General appearance no distress Eyes anicteric no pallor Pharynx is clear no redness swelling or exudate, membranes are moist Neck is supple Chest clear to auscultation bilateral Abdomen is soft with very minimal diffuse lower abdominal tenderness, no rebound or guarding, there is no tenderness at McBurney's point Extremities full range motion x4 no edema Skin no rash Course Course Course Narrative: Patient with chronic abdominal pain, taking multiple meds as prescribed by primary care doctor he is compliant He comes today as his pain has been lasting for 4 days and he is worried it will be painful to eat so he has not eaten since last night, no nause or vomiting I repeated his abdominal exam and this time there was no significant tenderness He is advised to make an appointment with GI as irritable bowel is on the differential No surgical or acute emergency is identified today Medical Decision Making Lab Data 10/09/24 11:53 10/09/24 11:53 Labs: Lab Results 10/09/24 10/09/24 Range/Units 11:53 13:29 WBC 8.7 (4.8-10.8) X10*3/uL RBC 5.62 (4.60-5.80) X10*6/uL Hgb 16.1 (14.0-18.0) g/dl Hct 47.4 (42.0-52.0) % MCV 84.3 (80.0-98.0) fL MCH 28.6 (27.0-33.0) pg MCHC 34.0 (31.0-36.0) g/dl RDW 11.9 (11.0-16.0) % Plt Count 318 (160-400) X10*3/uL MPV 9.6 (9.4-12.4) fL Immature Gran % (Auto) 0.6 H (0.0-0.4) % Neut % (Auto) 68.3 (45-73) % Lymph % (Auto) 22.5 (20-40) % [place] % (Auto) 6.4 (2-11) % Eos % (Auto) 1.7 (0-4) % Baso % (Auto) 0.5 (0-2) % Lymph # (Auto) 2.0 (1.2-4.9) X10*3/uL [place] # (Auto) 0.6 (0.1-1.2) X10*3/uL Eos # (Auto) 0.2 (0.0-0.4) X10*3/uL Baso # (Auto) 0.0 (0.0-0.2) X10*3/uL Abs Immat Gran (auto) 0.05 H (0.00-0.03) X10*3/uL Absolute Neuts (auto) 6.0 (2.0-8.3) x10*3/uL Absolute Nucleated RBC 0.000 (0.0-0.012) X10*3/uL Nucleated RBC % (auto) 0.0 (0.0-0.2) /100WBC Sodium 141 (135-145) mmol/L Potassium 4.5 (3.3-5.1) mmol/L Chloride 111 H (96-108) mmol/L Carbon Dioxide 25 (22-29) mmol/L Anion Gap 10 L (12-20) BUN 12 (9-16) mg/dL Creatinine 0.97 (0.5-1.4) mg/dL Estim Creat Clear Calc 190.6 Estimated GFR > 60 Random Glucose 91 (60-115) mg/dL Calcium 9.9 (8.4-10.2) mg/dL Total Bilirubin 0.5 (0.0-1.0) mg/dL AST 28 (5-37) U/L ALT 45 H (0-40) U/L Alkaline Phosphatase 85 (39-117) U/L Total Protein 7.6 (6.5-8.0) g/dL Albumin 4.3 (3.5-5.0) g/dL Urine Color Yellow Urine Appearance Clear Urine pH 5.5 (5.0-9.0) Ur Specific [place] 1.025 (1.005-1.025) Urine Protein Negative (Neg-Trace) mg/dL Urine Glucose (UA) Negative (Negative) mg/dL Urine Ketones Negative (Negative) mg/dL Urine Blood Negative (Negative) Urine Nitrite Negative (Negative) Ur Leukocyte Esterase Negative (Negative) Discharge Plan Discharge Clinical Impression: Abdominal pain Patient Disposition: Home, Self-Care Additional Instructions: There is no sign of any dangerous emergency today Nothing worrisome on labs or your physical exam We gave you the GI cocktail which has helped sometimes in the past Best plan is to follow with a GI specialist for an office appointment as opposed to routine colonoscopy in the spring You can call Konstantin, or you can call farm implement engine mechanic who does your colonoscopy in [facility] the see if they have an office appointment, it can be with the PA or anyone available Return to ER any time any worse condition or any concerns Prescriptions: No Action ondansetron 4 mg tablet,disintegrating 4 mg PO Q6-8H PRN (Reason: nausea and vomiting) Qty: 20 0RF omeprazole 40 mg capsule,delayed release(DR/EC) 40 mg PO DAILY 7 Days Qty: 7 0RF famotidine 10 mg tablet 10 mg PO DAILY 7 Days Qty: 7 0RF sucralfate [Carafate] 100 mg/mL suspension 5 ml PO QID Qty: 414 0RF Rx Instructions: swish in mouth and swallow; use after food/drink ondansetron 4 mg tablet,disintegrating 4 mg PO Q8H PRN (Reason: nausea and vomiting) Qty: 20 0RF omeprazole 20 mg capsule,delayed release(DR/EC) 20 mg PO DAILY Qty: 14 0RF dicyclomine 10 mg capsule 10 mg PO QID PRN (Reason: abdominal pain) Qty: 14 0RF sucralfate [Carafate] 100 mg/mL suspension 10 ml PO .before meals Qty: 420 0RF sucralfate [Carafate] 100 mg/mL suspension 10 ml PO BID 7 Days Qty: 140 0RF metoclopramide HCl [Reglan] 10 mg tablet 10 mg PO Q6H PRN (Reason: nausea and vomiting) Qty: 20 0RF Referrals: Arturo Sanford MD [Physician] - Stand Alone Forms: Work/School Release Print Language: Kyrgyz
--- OUTSIDE RECORDS SUMMARY | 2024-10-09 14:19 | XMS_ITS | Data Portability ---
Author Organization [facility] Fer[facility] [address] Address [address] [place] [address] Assessment No assessment recorded. Plan of Treatment Reminders Order Date Submit Date Provider Last Modified By Organization Details Last Modified Time Details Appointments None recorded. Lab None recorded. Referral None recorded. Procedures None recorded. Surgeries None recorded. Imaging XR, foot, 3 or more view 2022 023 [facility], [address] [place], [address], 3 15:59:16 XR, ankle, 3 or more view 2022 023 [facility], [address] [place], [address], 3 15:56:20 Medication Orders ibuprofen 600 mg tablet 2022 023 [id number], [address] [place], [address], 15:39:36 Patient TargetsNo targets recorded. Patient Instructions Encounter Date Encounter Id Patient Instructions Last Modified By Organization Details Last Modified Time 03/29/2023 [id number] learning about rice (rest, ice, compression, and elevation) [email or web address] Not available 03/29/2023 15:04:44 Based on your presentation and exam, you are diagnosed with an ankle sprain. The x-ray did not show any acute fracture but we will send it to the radiologist to review. If they see something that I didn't identify, you will be contacted by our office. My suggestions for this condition include: 1. Ice 2. Elevate 3. Rest 4. Make sure you stretch your ankle regularly for the next 1-2 weeks 5. Take Ibuprofen or Tylenol if you do not have any allergies to these medications. If you take a blood thinner you should not take NSAIDS like Ibuprofen. 6. After 3 days of icing - I would switch to heat - this will help reabsorb any bruising or swelling. If you are still having pain after 7-10 days, I would suggest that you follow up with our office again or schedule and appointment with an orthopedist. I would be seen more urgently if you develop any of the following symptoms. 1. Numbness 2. Cold Extremities 3. Worsening Pain 4. Skin Redness 5. Calf Swelling Thank you for using [facility], please contact our office if you have any questions or concerns. [email or web address] Not available 03/29/2023 15:04:57 Reason for Referral None Reported. Results Created Date Observation Date Name Description Value Unit Range Abnormal Flag Note LastModifiedBy Organization Detail LastModifiedTime 03/29/2003/29/2023 XR, ankle , 3 or more view No observ ation record ed. [email or web address] [facility] [address] [place], [place], [address], 03/30/2023 13:42:24 03/29/20 23 03/29/2023 XR, foot, 3 or more view No observ ation record ed. [email or web address] [facility] [address] [place], [address], 03/30/2023 13:42:25 Result Notes None recorded. Problems No Known Problems Procedures Surgical History None recorded. Imaging Results Imaging Date Name Status [facility] Details LastModified Time 03/29/2023 XR, ankle, 3 or more view completed [email or web address] [facility] [address] [place], [place], [address], 03/30/2023 13:42:24 03/29/2023 XR, foot, 3 or more view completed [facility] [address] [place], [place], [address], 03/30/2023 13:42:25 Procedure Notes None recorded. Medical Equipment None Reported. Allergies No known drug allergies Medications Name Sig Start Date Stop Date Status Note LastModified by Organization Details LastModified Time ibuprofen 600 mg tablet Take 1 tablet 3 times a day by oral route for 10 days. 023 active Not Available Not Available Not Avai lable Vitals Date Recorded Body height Provider Name an d Address Organization Details Last Updated DateTime 03/29/2023 187.96 cm Magdalena Harleigh PA - [facility] 0 03/29/2023 14:15:14 Date Recorded Body mass index (BMI) Percentile per age and sex Body mass index (BMI) Body weight Provider Name and Address Organization Details Last Updated DateTime 03/29/2023 99 % 46.9 kg/m2 105037.22 g Magdalena Adilene PA - [facility] 03/29/2023 14:15:17 Date Recorded Pain severity - 0-10 verbal numeric rating [Score] - Reported Provider Name and Address Organization Details Last Updated DateTime 03/29/2023 4 Magdalena Adilene PA - [facility] 0 03/29/2023 14:15:41 Date Recorded Respiratory rate Provider Name a nd Address Organization Details Last Updated DateTime 03/29/2023 20 /min Magdalena Adilene PA - [facility] 0 03/29/2023 14:15:48 Date Recorded Oxygen saturation Oxygen saturation in Arterial blood by Pulse oximetry Provider Name and Address Organization Details Last Updated DateTime 03/29/2023 99 % 99 % Magdalena Adilene PA - [facility] 03/29/2023 14:17:03 Date Recorded Heart rate Provider Name an d Address Organization Details Last Updated DateTime 03/29/2023 67 /min Magdalena Adilene PA - [facility] 0 03/29/2023 14:17:04 Date Recorded Body temperature Provider Name a nd Address Organization Details Last Updated DateTime 03/29/2023 98.2 [degF] Magdalena Harleigh PA - [facility] 03/29/2023 14:17:10 Date Recorded Systolic blood pressure Diastolic blood pressure Provider Name and Address Organization Details Last Updated DateTime 03/29/2023 129 mm[Hg] 93 mm[Hg] Magdalena Adilene PA - [facility] 03/29/2023 14:17:08 Social History Question Answer Notes LastModified by Organizat ion Details LastModified Time Tobacco Smoking Status Never Smoker LUL[facility] Alberto [facility] 03/29/2023 14:15:35 What Is Your Level Of Alcohol Consumption? None Information not available 03/29/2023 Which Illicit Or Recreational Drugs Have You Used? Marijuana Information not available 03/29/2023 Have You Had Direct Contact, Or Contact During Intimacy, With Monkeypox Rash, Scabs, Or Body Fluids From A Person With Monkeypox? No Information not available 03/29/2023 Do You Use Any Illicit Or Recreational Drugs? Yes Information not available 03/29/2023 Have You Recently Traveled Abroad? No Information not available 03/29/2023 Do You Or Have You Ever Used Any Other Forms Of Tobacco Or Nicotine? No Information not available 03/29/2023 Sex: Unknown Functional Status None recorded. Mental Status None recorded. Family History Relationship Description Onset Age of this Age Resolved Age Notes LastModified by Organization Details LastModified Time Father No current problems or disability Not available 03/29 14:15:24 Mother No current problems or disability Not available 03/29 14:15:24 Medical History No medical history recorded. Past Encounters Encounter ID Performer Location Encounter Start Date Encounter Closed Date Diagnosis/Indication Diagnosis SNOMED-CT Code Diagnosis ICD10 Code Diagnosis [id number] [facility] [address] [place] [id number] 07/26/2022 09:40:15 07/26/2022 12:38:11 [id number] [facility] [address] [place] [address] 03/29/2023 13:29:23 03/29/2023 15:44:03 Sprain of right ankle [id number] S93.401A Health Concerns Section Related Observation LastModified by Organization Detai ls LastModified Time None Recorded Concern Status LastModified by Organization Details LastModified Time None Recorded Advance Directives Directive None Recorded Payers Encounter Date Sequence Insurance Name Policy Number Policy Sanders Covered Member ID Sanders Member ID Guarantor Name 07/26/2022 1 [facility] [employer] - [employer] (MEDICAID HMO) [id number] Mahesh Lepe [id number] Mahesh Lepe 03/29/2023 1 [facility] [id number] Mahesh Lepe [id number] Mahesh Lepe Notes Date Note Type Note Provider Name and Address Organization Details Recorded Time 03/29/2023 text/html Foot/Ankle UCReported bypatient.Notes:[age] y.o male pt presents with right ankle pain with swelling 2/2 rolling it while coming down the stairs. Pain is located along lateral malleolus and on dorsal aspect of foot. Pt is ambulating with mild limp LULÚ SALAS [address] [place], [address], PA - [facility] 03/29/2023 16:10:37
[2024-10-09] MEDS: Magnesium Hydrox/Alum Hydrox 30 ML ORAL.SUSP PO (14:41)
[2024-10-09] MEDS: Dicyclomine HCl 10 MG CAPSULE PO (14:41)
[2024-10-09] MEDS: Lidocaine HCl Viscous 2 % 15 ML SOLUTION MUCOUS MEM (14:42)
[2024-10-09 14:47] VITALS: BP 108/65; PULSE 67; RESP 16; TEMP 36.1; O2SAT 94
== END 2024-10-09 14:48 | disposition home or self-care (01) ==
PROVIDERS: Emergency Provider Emergency Medicine; PCP Nurse Practitioner
DX: R10.9 Unspecified abdominal pain (principal)
CPT/HCPCS: 36415; 80053; 81003; 85025; 99282; 99283

== ENCOUNTER 2024-10-15 09:34 | Emergency (ER) | payer OTHER, SELFPAY ==
--- NOTE | ~2024-10-15 | CT_ITS ---
EXAMINATION: CT ABDOMEN AND PELVIS WITHOUT CONTRAST CLINICAL INFORMATION: Epigastric pain. COMPARISON: CT dated August 08, 2024. TECHNIQUE: Multidetector volumetric imaging was performed from the superior aspect of the liver through the pubic symphysis. Sagittal and coronal reformatted images were obtained on the technologist's workstation. This CT examination was performed using dose optimization techniques as appropriate, variously including the following: *Automated exposure control *Adjustment of mA and/or kV according to patient size (this includes techniques or standardized protocols for targeted exams where dose is matched to indication/reason for exam; i.e. extremities or head) *Use of iterative reconstruction technique. DLP: 1401 mGy centimeter. FINDINGS: Inadequate evaluation of the intra-abdominal organs and vascular structures due to lack of IV contrast. LUNG BASES: No acute airspace disease in the lung bases. 1 mm calcified pulmonary nodule in the periphery of the left lung base likely granuloma. LIVER, GALLBLADDER, AND BILIARY TREE: Liver measures 15 cm. No intrahepatic biliary ductal dilatation. Gallbladder is contracted. No pericholecystic fluid collection or gallbladder wall thickening. Common bile duct measures 3 mm. PANCREAS: No peripancreatic fluid collections. No main pancreatic ductal dilatation. SPLEEN: 11 cm. ADRENAL GLANDS: No nodular lesions. KIDNEYS AND URETERS: No hydronephrosis. No nephrolithiasis. BLADDER: Fluid-filled. GASTROINTESTINAL TRACT: No intestinal obstruction pattern. Collapsed appearance of the large intestine. Probable fatty wall of the ileal loops and large intestine. Appendix is normal with a tiny appendicolith at the base. No ascites. No pneumoperitoneum. ABDOMINAL WALL: Small fat-containing umbilical hernia. LYMPH NODES: Nonspecific bowel prominent mesenteric and retroperitoneal lymph nodes. VASCULAR: No aneurysm, abdominal aorta. PELVIC VISCERA: Unable to evaluate. OSSEOUS STRUCTURES: No acute fracture or listhesis. No lytic or blastic lesions. Mild spondylosis at L5-S1. CT/CT abdomen pelvis wo IV con IMPRESSION: Questionable of bowel wall fat deposition, this is nonspecific. This could be a normal variant in of these patients. Fleischner guidelines were followed. Electronically signed by: Toñito Montoya MD 10/15/2024 01:42 PM [facility]
[2024-10-15 09:58] VITALS: BP 104/69; PULSE 70; RESP 16; TEMP 36.9; O2SAT 95; BMI 45.1
--- NOTE | 2024-10-15 09:58 | ED.NAVMDI ---
HPI - Nausea/Vomiting/Diarrhea General Chief complaint: Nausea/Vomiting/Diarrhea Stated complaint: Flu Symptoms Time Seen by Provider: 10/15/24 12:21 Source: patient Mode of arrival: ambulatory Limitations: no limitations History of Present Illness ED Provider: ONEL CHOWDHURY PA-C HPI Narrative: 24 year old male with pmhx significant for gastric ulcers presents to the ED today for evaluation of acute on chronic nausea, vomiting, and epigastric abdominal pain x1 week, worsening over the last 3 days. He endorses history of gastric ulcers for which he takes famotidine, dicyclomine, sucralfate and omeprazole at home. He has been compliant with these medications however over the last few days, his symptoms have been worsening. States he has not been able to keep any food down. His abdominal pain is primarily in the epigastric region. Admits to burning sensation. No radiation of pain. He states he was evaluated in the ED approximately 1 week ago for same. He was treated with a GI cocktail and discharged home. He states his symptoms somewhat improved that day however returned shortly after. He has not followed up with his GI specialist at [facility] for some time. He has an appointment for follow up/ EGD in the spring. Admits to smoking THC however stops when he has stomach pain. Denies fever, chills, flank pain, dysuria, hematuria, diarrhea, constipation. Related Data Previous Rx's ?Medication ?Instructions ?Recorded omeprazole 20 mg capsule,delayed 20 mg PO DAILY #14 caps 04/02/24 release ondansetron 4 mg disintegrating 4 mg PO Q8H PRN nausea and 04/02/24 tablet vomiting #20 tabs ondansetron 4 mg disintegrating 4 mg PO Q6-8H PRN nausea and 05/13/24 tablet vomiting #20 tabs famotidine 10 mg tablet 10 mg PO DAILY 7 days #7 tabs 07/11/24 omeprazole 40 mg capsule,delayed 40 mg PO DAILY 1 week #7 caps 07/11/24 release sucralfate 100 mg/mL oral 5 ml PO QID #414 mL 07/11/24 suspension (Carafate) dicyclomine 10 mg capsule 10 mg PO QID PRN abdominal pain 08/05/24 #14 caps sucralfate 100 mg/mL oral 10 ml PO .before meals #420 mL 08/08/24 suspension (Carafate) metoclopramide HCl 10 mg tablet 10 mg PO Q6H PRN nausea and 09/25/24 (Reglan) vomiting #20 tabs sucralfate 100 mg/mL oral 10 ml PO BID 7 days #140 mL 09/25/24 suspension (Carafate) sucralfate 100 mg/mL oral 10 ml PO BID 4 weeks #560 mL 10/15/24 suspension (Carafate) Allergies Allergy/AdvReac Type Severity Reaction Status Date / Time No Known Allergies Allergy Verified 10/15/24 10:02 Review of Systems Review of Systems: Constitutional: No fever, chills, fatigue, night sweats, weight changes ENT/Mouth: No ear pain, hearing loss, nasal congestion, sinus pain, rhinorrhea, sore throat Eyes: No eye pain, swelling, redness, vision changes, discharge Cardio: No chest pain, palpitations, GAMINO, orthopnea, peripheral edema Pulm: No SOB, cough, sputum, wheezing, dyspnea, hemoptysis GI: No hematemesis, diarrhea, constipation, hematochezia, melena, +N/V, +abd pain : No irregular bleeding, dysuria, frequency, urgency, hesitancy, hematuria, flank pain, urinary flow changes, urinary incontinence or retention MSK: No back pain, neck pain, joint pain, myalgias Skin: No lesions, rashes Neuro: No weakness, numbness, paresthesias, LOC, dizziness, headache Psych: No anxiety/panic, depression, SI/HI, AH/VH All other systems reviewed and are negative. [facility] Past Medical History Attestation statement: The following information was validated with the patient. Source: old records reviewed and nursing notes reviewed Medical History No pertinent past medical history Social History Social History Unable to assess alcohol history related to: Unknown Alcohol intake: former Patient Tobacco Use Status: Never used Tobacco Substance Use Type: Marijuana Physical Exam Vital Signs: Vital Signs: Last Vital Signs Temp 97.7 F 10/15/24 15:32 Pulse 63 10/15/24 15:32 Resp 16 10/15/24 15:32 BP 118/71 10/15/24 15:32 Pulse Ox 97 01/29/25 15:32 O2 Del Method Room Air 10/15/24 15:32 BMI result Body Mass Index 45.1 vital signs stable, afebrile General: Well appearing, in no acute distress. Skin: Warm, dry, intact. No rashes or lesions. Head: Normocephalic, atraumatic. EENT: Hearing is intact b/l. Conjunctiva clear. PERRLA. EOM intact. Moist mucous membranes.? Neck: Supple without LAD Cardiac: Chest wall symmetric. RRR Lungs: Normal respiratory effort without accessory muscle use. CTA bilaterally. Abdomen: Soft, non-tender, non-distended. No rebound tenderness or guarding. Positive BS x4. no cvat b/l. Back: No midline spinous or paraspinal tenderness. No step off deformity. Ext: Upper and lower extremities atraumatic, without tenderness, deformity, swelling or erythema. Full ROM throughout Neuro: AOx3. Normal speech. Ambulating with steady gait. Psych: Appropriate mood and affect. Responds appropriately to questions. Course Course Course Narrative: 1311 -- CBC without leukocytosis or left shift. no anemia. h&h stable. chemistry without acute electrolyte abnormality requiring intervention. no raymon. liver function wnl. lipase wnl. urine without infection/ blood. ct a/p pending. zofran given. CT a/p unremarkable. symptomatic improvement w/ zofran. tolerating PO intake in ED. will send refill of carafate. advised GI follow up. Patient has remained stable throughout ED visit today. Discussed worrisome signs and symptoms and when to return to the ED. All questions answered at this time. Patient is agreeable with disposition and stable for discharge. Medications Administered Discontinued Medications Generic Name Dose Route Start Last Admin Trade Name Freq PRN Reason Stop Dose Admin Ondansetron HCl 4 mg 10/15/24 12:31 10/15/24 12:39 Ondansetron Odt 4 Mg Tab.Rapdis TRANSLINGU 10/15/24 12:32 4 mg ONCE ONE Administration Medical Decision Making Medical Decision Making MDM Narrative: 24 year old male with pmhx significant for gastric ulcers presents to the ED today for evaluation of acute on chronic nausea, vomiting, and epigastric abdominal pain x1 week, worsening over the last 3 days. vital signs stable, afebrile. he is well appearing and in NAD. lying comfortably on the exam bed. physical exam is quite benign. Differential diagnosis includes biliary colic, gastritis, gerd, gastroenteritis. Abdominal exam without peritoneal signs. No evidence of acute abdomen at this time. Well appearing. Moderate suspicion for acute hepatobiliary disease (including acute cholecystitis). Less likely to represent renal colic/ nephrolithiasis, acute pancreatitis, PUD (including perforation), acute infectious processes (pneumonia, hepatitis, pyelonephritis), atypical appendicitis, vascular catastrophe, bowel obstruction or viscus perforation. Presentation not consistent with other acute, emergent causes of abdominal pain at this time. Plan: labs, UA, zofran, CT, serial reassessment Differential Diagnosis Differential Diagnoses: The differential diagnosis associated with the presentation includes as above. Admission/Observation not indicated. Lab Data MDM Lab Attestation statement: I reviewed the patient's lab results. as above. 10/15/24 10:30 10/15/24 10:30 Labs: Lab Results 10/15/24 10/15/24 Range/Units 10:30 12:56 WBC 7.9 (4.8-10.8) X10*3/uL RBC 5.60 (4.60-5.80) X10*6/uL Hgb 15.8 (14.0-18.0) g/dl Hct 47.2 (42.0-52.0) % MCV 84.3 (80.0-98.0) fL MCH 28.2 (27.0-33.0) pg MCHC 33.5 (31.0-36.0) g/dl RDW 11.9 (11.0-16.0) % Plt Count 309 (160-400) X10*3/uL MPV 9.6 (9.4-12.4) fL Immature Gran % (Auto) 0.4 (0.0-0.4) % Neut % (Auto) 68.9 (45-73) % Lymph % (Auto) 21.1 (20-40) % [place] % (Auto) 7.2 (2-11) % Eos % (Auto) 2.0 (0-4) % Baso % (Auto) 0.4 (0-2) % Lymph # (Auto) 1.7 (1.2-4.9) X10*3/uL [place] # (Auto) 0.6 (0.1-1.2) X10*3/uL Eos # (Auto) 0.2 (0.0-0.4) X10*3/uL Baso # (Auto) 0.0 (0.0-0.2) X10*3/uL Abs Immat Gran (auto) 0.03 (0.00-0.03) X10*3/uL Absolute Neuts (auto) 5.4 (2.0-8.3) x10*3/uL Absolute Nucleated RBC 0.000 (0.0-0.012) X10*3/uL Nucleated RBC % (auto) 0.0 (0.0-0.2) /100WBC Sodium 139 (135-145) mmol/L Potassium 4.0 (3.3-5.1) mmol/L Chloride 106 (96-108) mmol/L Carbon Dioxide 27 (22-29) mmol/L Anion Gap 10 L (12-20) BUN 13 (9-16) mg/dL Creatinine 0.94 (0.5-1.4) mg/dL Estim Creat Clear Calc 197.0 Estimated GFR > 60 Random Glucose 91 (60-115) mg/dL Calcium 9.6 (8.4-10.2) mg/dL Magnesium 2.0 (1.6-2.6) mg/dL Total Bilirubin 0.6 (0.0-1.0) mg/dL AST 23 (5-37) U/L ALT 36 (0-40) U/L Alkaline Phosphatase 84 (39-117) U/L Total Protein 7.6 (6.5-8.0) g/dL Albumin 4.2 (3.5-5.0) g/dL Lipase 18 (8-78) U/L Urine Color Yellow Urine Appearance Clear Urine pH 6.5 (5.0-9.0) Ur Specific [place] 1.025 (1.005-1.025) Urine Protein Negative (Neg-Trace) mg/dL Urine Glucose (UA) Negative (Negative) mg/dL Urine Ketones Trace (Negative) mg/dL Urine Blood Negative (Negative) Urine Nitrite Negative (Negative) Ur Leukocyte Esterase Negative (Negative) Influenza Type A (PCR) NEGATIVE (Negative) Influenza Type B (PCR) NEGATIVE (Negative) RSV RNA Qual (PCR) NEGATIVE (Negative) SARS-CoV-2 RNA (RT-PCR) NEGATIVE (Negative) S. pyogenes GrpA JUDI Negative (Negative) Independent Interpretation I performed an independent interpretation of an: CT Scan Interpretation: CT a/p without bowel obstruction. Radiology Impression Discussion of test interpretation with radiology: I have reviewed the radiologist's reading. Radiologist Impression: EXAMINATION: CT ABDOMEN AND PELVIS WITHOUT CONTRAST CLINICAL INFORMATION: Epigastric pain. COMPARISON: CT dated August 08, 2024. TECHNIQUE: Multidetector volumetric imaging was performed from the superior aspect of the liver through the pubic symphysis. Sagittal and coronal reformatted images were obtained on the technologist's workstation. This CT examination was performed using dose optimization techniques as appropriate, variously including the following: *Automated exposure control *Adjustment of mA and/or kV according to patient size (this includes techniques or standardized protocols for targeted exams where dose is matched to indication/reason for exam; i.e. extremities or head) *Use of iterative reconstruction technique. DLP: 1401 mGy centimeter. FINDINGS: Inadequate evaluation of the intra-abdominal organs and vascular structures due to lack of IV contrast. LUNG BASES: No acute airspace disease in the lung bases. 1 mm calcified pulmonary nodule in the periphery of the left lung base likely granuloma. LIVER, GALLBLADDER, AND BILIARY TREE: Liver measures 15 cm. No intrahepatic biliary ductal dilatation. Gallbladder is contracted. No pericholecystic fluid collection or gallbladder wall thickening. Common bile duct measures 3 mm. PANCREAS: No peripancreatic fluid collections. No main pancreatic ductal dilatation. SPLEEN: 11 cm. ADRENAL GLANDS: No nodular lesions. KIDNEYS AND URETERS: No hydronephrosis. No nephrolithiasis. BLADDER: Fluid-filled. GASTROINTESTINAL TRACT: No intestinal obstruction pattern. Collapsed appearance of the large intestine. Probable fatty wall of the ileal loops and large intestine. Appendix is normal with a tiny appendicolith at the base. No ascites. No pneumoperitoneum. ABDOMINAL WALL: Small fat-containing umbilical hernia. LYMPH NODES: Nonspecific bowel prominent mesenteric and retroperitoneal lymph nodes. VASCULAR: No aneurysm, abdominal aorta. PELVIC VISCERA: Unable to evaluate. OSSEOUS STRUCTURES: No acute fracture or listhesis. No lytic or blastic lesions. Mild spondylosis at L5-S1. CT/CT abdomen pelvis wo IV con IMPRESSION: Questionable of bowel wall fat deposition, this is nonspecific. This could be a normal variant in of these patients. Fleischner guidelines were followed. Electronically signed by: Toñito Montoya MD 10/15/2024 01:42 PM [facility] External Record Review External record reviewed: Inpatient record, Office record, Outpatient record, Prior outpatient labs, Prior outpatient radiology, Primary care record and Outside ED record Prescription Management I considered prescription management with: Other (carafate) Chronic Conditions Patient?s care impacted by: Other (GERD, gastritis) Social Determinants Patient?s care significantly limited by Social Determinants of Health including: Other Social Determinant of Health Critical Care Time Critical Care Time Critical Care Time: No Discharge Plan Discharge Clinical Impression: Abdominal pain Patient Disposition: Home, Self-Care Instructions: Abdominal Pain (ED) Additional Instructions: Your blood work today is reassuring. Your urine does not demonstrate infection. You tested negative for covid, flu, and rsv. Your CT scan does not demonstrate bowel obstruction or other acute pathology. Continue all home medications. I have sent a refill of your carafate. You need to follow up with GI. I have provided you with a referral. Call them to see if you can get an earlier appointment. They will not call you. I advise you to stop smoking marijuana as this can cause your symptoms to return or worsen. Return with new or worsening symptoms. In the case of an emergency call 911. Prescriptions: New sucralfate [Carafate] 100 mg/mL suspension 10 ml PO BID 28 Days Qty: 560 0RF Rx Instructions: before meals No Action ondansetron 4 mg tablet,disintegrating 4 mg PO Q6-8H PRN (Reason: nausea and vomiting) Qty: 20 0RF omeprazole 40 mg capsule,delayed release(DR/EC) 40 mg PO DAILY 7 Days Qty: 7 0RF famotidine 10 mg tablet 10 mg PO DAILY 7 Days Qty: 7 0RF sucralfate [Carafate] 100 mg/mL suspension 5 ml PO QID Qty: 414 0RF Rx Instructions: swish in mouth and swallow; use after food/drink ondansetron 4 mg tablet,disintegrating 4 mg PO Q8H PRN (Reason: nausea and vomiting) Qty: 20 0RF omeprazole 20 mg capsule,delayed release(DR/EC) 20 mg PO DAILY Qty: 14 0RF dicyclomine 10 mg capsule 10 mg PO QID PRN (Reason: abdominal pain) Qty: 14 0RF sucralfate [Carafate] 100 mg/mL suspension 10 ml PO .before meals Qty: 420 0RF sucralfate [Carafate] 100 mg/mL suspension 10 ml PO BID 7 Days Qty: 140 0RF metoclopramide HCl [Reglan] 10 mg tablet 10 mg PO Q6H PRN (Reason: nausea and vomiting) Qty: 20 0RF Referrals: [facility] [Provider Group] - 3 days (? IBD, gastric ulcers) Radha Walker, [employer]OO[employer]MER [Primary Care Provider] - Stand Alone Forms: Work/School Release Interventions: ED Discharge Assessment Last Done: 10/15/24 15:32 Discharge Date/Time: 10/15/24 15:32 Print Language: [place] Islander
[2024-10-15 10:35] LABS: MANUAL DIFF FLAG NO
[2024-10-15 10:43] LABS: Basophils Percent Auto 0.4 % (0-2); Eosinophils Absolute Auto 0.2 X10*3/uL (0.0-0.4); Hematocrit 47.2 % (42.0-52.0); Hemoglobin 15.8 g/dl (14.0-18.0); Imm Gran Abs Auto 0.03 X10*3/uL (0.00-0.03); Imm Gran Pct Auto 0.4 % (0.0-0.4); Lymphocytes Absolute Auto 1.7 X10*3/uL (1.2-4.9); Lymphocytes Percent Auto 21.1 % (20-40); Mean Corpuscular HGB Conc 33.5 g/dl (31.0-36.0); Mean Corpuscular Hemoglobin 28.2 pg (27.0-33.0); Mean Corpuscular Volume 84.3 fL (80.0-98.0); Mean Platelet Volume 9.6 fL (9.4-12.4); Monocytes Absolute Auto 0.6 X10*3/uL (0.1-1.2); Monocytes Percent Auto 7.2 % (2-11); Neutrophils Absolute Auto 5.4 x10*3/uL (2.0-8.3); Neutrophils Percent Auto 68.9 % (45-73); Platelet Count 309 X10*3/uL (160-400); Red Cell Distribution Width 11.9 % (11.0-16.0); White Blood Count 7.9 X10*3/uL (4.8-10.8)
[2024-10-15 10:47] LABS: IDNOW Serial# 58CA691E
[2024-10-15 10:48] LABS: Strep A Nucleic Acid Negative (Negative)
[2024-10-15 10:57] LABS: Alanine Aminotransferase 36 U/L (0-40); Albumin Level 4.2 g/dL (3.5-5.0); Anion Gap 10 (12-20); Aspartate Amino Transferase 23 U/L (5-37); Bilirubin Total 0.6 mg/dL (0.0-1.0); Blood Urea Nitrogen 13 mg/dL (9-16); Calcium 9.6 mg/dL (8.4-10.2); Carbon Dioxide 27 mmol/L (22-29); Chloride 106 mmol/L (96-108); Estimated Glomerular Filt Rate > 60; Glucose Random 91 mg/dL (60-115); Lipase 18 U/L (8-78); Sodium 139 mmol/L (135-145); Total Protein 7.6 g/dL (6.5-8.0)
[2024-10-15 11:06] LABS: Alkaline Phosphatase 84 U/L (39-117)
[2024-10-15 11:14] LABS: Influenza A PCR NEGATIVE (Negative); Influenza B PCR NEGATIVE (Negative); Resp Syncy Virus RNA Qual PCR NEGATIVE (Negative); SARS COV2 PCR INHOUSE NEGATIVE (Negative)
[2024-10-15 12:24] VITALS: BP 118/71; PULSE 63; RESP 16; TEMP 36.5; O2SAT 97
--- OUTSIDE RECORDS SUMMARY | 2024-10-15 12:33 | XMS_ITS | Data Portability ---
Author Organization LULÚ Ferrell s [address] Address [address] [place] [address] Assessment No assessment recorded. Plan of Treatment Reminders Order Date Submit Date Provider Last Modified By Organization Details Last Modified Time Details Appointments None recorded. Lab None recorded. Referral None recorded. Procedures None recorded. Surgeries None recorded. Imaging XR, foot, 3 or more view 2022 023 [facility], [address] [place], [address], 3 15:59:16 XR, ankle, 3 or more view 2022 023 [facility], [address] [place], [address], 3 15:56:20 Medication Orders ibuprofen 600 mg tablet 2022 023 [facility] #[id number], [address] [place], [address], 3 15:39:36 Patient TargetsNo targets recorded. Patient Instructions Encounter Date Encounter Id Patient Instructions Last Modified By Organization Details Last Modified Time 03/29/2023 [id number] learning about rice (rest, ice, compression, and elevation) Not available 03/29/2023 15:04:44 Based on your [...] if you have any questions or concerns. Not available 03/29/2023 15:04:57 Reason for Referral None Reported. Results Created Date Observation Date Name Description Value Unit Range Abnormal Flag Note LastModifiedBy Organization Detail LastModifiedTime 03/29/2003/29/2023 XR, ankle , 3 or more view No observ ation record ed. [facility] [address] [place], [place], [address], 03/30/2023 13:42:24 03/29/20 23 03/29/2023 XR, foot, 3 or more view No observ ation record ed. [email or web address] [facility] [address] [place], [address], 03/30/2023 13:42:25 Result Notes None recorded. Problems No Known Problems Procedures Surgical History None recorded. Imaging Results Imaging Date Name Status LastModified by [facility] Details LastModified Time 03/29/2023 XR, ankle, 3 or more view completed [email or web address] [facility] [address] [place], [place], [address], 03/30/2023 13:42:24 03/29/2023 XR, foot, 3 or more view completed [email or web address] [facility] [address] [place], [place], [address], 03/30/2023 13:42:25 Procedure Notes None recorded. Medical [...] Last Updated DateTime 03/29/2023 187.96 cm Magdalena Ogden PA - [facility] 0 03/29/2023 14:15:14 Date Recorded Body mass index (BMI) Percentile per age and sex Body mass index (BMI) Body weight Provider Name and Address Organization Details Last Updated DateTime 03/29/2023 99 % 46.9 kg/m2 475969.22 g Magdalena Adilene PA - [facility] 03/29/2023 14:15:17 Date Recorded Pain severity - 0-10 verbal numeric rating [Score] - Reported Provider Name and Address Organization Details Last Updated DateTime 03/29/2023 4 Magdalena Adilnee PA - [facility] 0 03/29/2023 14:15:41 [...] Last Updated DateTime 03/29/2023 98.2 [degF] Magdalena Ogden PA - [facility] 03/29/2023 14:17:10 Date [...] SNOMED-CT Code Diagnosis ICD10 Code Diagnosis Note [id number] [facility] [address] [place] [address] 07/26/2022 09:40:15 07/26/2022 12:38:11 [id number] [facility] [address] [address] [place] [address] 03/29/2023 13:29:23 03/29/2023 15:44:03 Sprain of right ankle [id number] S93.401A Health Concerns Section Related Observation LastModified by Organization Detai ls LastModified Time None Recorded Concern Status LastModified by Organization Details LastModified Time None Recorded Advance Directives Directive None Recorded Payers Encounter Date Sequence Insurance Name Policy Number Policy Sanders Covered Member ID Sanders Member ID Guarantor Name 07/26/2022 1 [facility] [employer] - TOGETHER (MEDICAID HMO) [id number] Mahesh Lepe [id number] Mahesh Lepe 03/29/2023 1 [facility] (MEDICAID HMO) [id number] Mahesh Lepe [id number] Mahesh Lepe Notes Date Note Type Note [...] LULÚ SALAS [address] [place], [address], [place] - [facility] 03/29/2023 16:10:37
[2024-10-15] MEDS: Ondansetron ODT 4 MG TAB.RAPDIS TRANSLINGU (12:39)
[2024-10-15 13:04] LABS: Appearance Urine Clear; Color Urine Yellow; Glucose Urine UA Negative (Negative); Leukocyte Esterase Urine Negative (Negative); Nitrite Urine Negative (Negative); PH 6.5 (5.0-9.0); Specific Gravity - Urine 1.025 (1.005-1.025); Urine Blood Negative (Negative); Urine Ketones Trace mg/dL (Negative); Urine Protein Negative (Neg-Trace)
[2024-10-15 15:32] VITALS: BP 118/71; PULSE 63; RESP 16; TEMP 36.5; O2SAT 97
== END 2024-10-15 15:32 | disposition home or self-care (01) ==
PROVIDERS: Physician Assistant Medical; Emergency Provider Student in an Organized Health Care Education/Training Program; PCP Nurse Practitioner
DX: R10.2 Pelvic and perineal pain (principal); R11.2 Nausea with vomiting, unspecified; R10.13 Epigastric pain; F12.90 Cannabis use, unspecified, uncomplicated; Z03.818 Encounter for observation for suspected exposure to other biological agents ruled out
CPT/HCPCS: 0241U; 36415; 74176; 80053; 81003; 83690; 83735; 85025; 87651; 99284

== ENCOUNTER → 2024-10-15 12:31 | Outpatient (BNV) | payer OTHER, SELFPAY | PROVIDERS: Emergency Provider Student in an Organized Health Care Education/Training Program; PCP Nurse Practitioner; Visit Provider Radiology Diagnostic Radiology | DX: R10.13 Epigastric pain (principal) | CPT/HCPCS: 74176 ==

== ENCOUNTER 2024-11-04 08:26 | Emergency (ER) | payer OTHER, SELFPAY ==
[2024-11-04 08:27] VITALS: BP 108/71; PULSE 77; RESP 20; TEMP 36.6; O2SAT 95; BMI 44.7
[2024-11-04 08:46] LABS: MANUAL DIFF FLAG NO
[2024-11-04 08:49] LABS: Basophils Percent Auto 0.4 % (0-2); Eosinophils Absolute Auto 0.3 X10*3/uL (0.0-0.4); Eosinophils Percent Auto 3.5 % (0-4); Hematocrit 44.7 % (42.0-52.0); Hemoglobin 14.9 g/dl (14.0-18.0); Imm Gran Abs Auto 0.03 X10*3/uL (0.00-0.03); Imm Gran Pct Auto 0.4 % (0.0-0.4); Lymphocytes Percent Auto 27.1 % (20-40); Mean Corpuscular HGB Conc 33.3 g/dl (31.0-36.0); Mean Platelet Volume 9.8 fL (9.4-12.4); Monocytes Absolute Auto 0.6 X10*3/uL (0.1-1.2); Monocytes Percent Auto 7.4 % (2-11); Neutrophils Absolute Auto 4.5 x10*3/uL (2.0-8.3); Neutrophils Percent Auto 61.2 % (45-73); Platelet Count 286 X10*3/uL (160-400); Red Blood Count 5.32 X10*6/uL (4.60-5.80); White Blood Count 7.4 X10*3/uL (4.8-10.8)
[2024-11-04 09:03] LABS: Alanine Aminotransferase 46 U/L (0-40); Albumin Level 3.9 g/dL (3.5-5.0); Alkaline Phosphatase 78 U/L (39-117); Anion Gap 12 (12-20); Aspartate Amino Transferase 27 U/L (5-37); Bilirubin Direct 0.1 mg/dL (0.0-0.5); Bilirubin Total 0.4 mg/dL (0.0-1.0); Blood Urea Nitrogen 14 mg/dL (9-16); Calcium 9.1 mg/dL (8.4-10.2); Carbon Dioxide 25 mmol/L (22-29); Chloride 109 mmol/L (96-108); Creatinine Clr Calc Pharmacy 216.8; Estimated Glomerular Filt Rate > 60; Glucose Random 93 mg/dL (60-115); Lipase 16 U/L (8-78); Potassium 3.7 mmol/L (3.3-5.1); Sodium 142 mmol/L (135-145); Total Protein 6.9 g/dL (6.5-8.0)
--- OUTSIDE RECORDS SUMMARY | 2024-11-04 09:12 | XMS_ITS | Data Portability ---
Author Organization LUL[facility] Ferrell [facility] [address] Address [address] [place] [address] Assessment No assessment recorded. Plan of Treatment Reminders Order Date Submit Date Provider Last Modified By Organization Details Last Modified Time Details Appointments None recorded. Lab None recorded. Referral None recorded. Procedures None recorded. Surgeries None recorded. Imaging XR, foot, 3 or more view 2022 023 [email or web address], [address] [place], [address], 3 15:59:16 XR, ankle, 3 or more view 2022 023 [email or web address], [address] [place], [address], 3 15:56:20 Medication Orders ibuprofen 600 mg tablet 2022 023 [facility] #[id number], [address] [place], [address], 3 15:39:36 Patient TargetsNo targets recorded. Patient Instructions Encounter Date Encounter Id Patient Instructions Last Modified By Organization Details Last Modified Time 03/29/2023 [id number] learning about rice (rest, ice, compression, and elevation) [email or web address] Not available 03/29/2023 15:04:44 Based on your [...] if you have any questions or concerns. [email or web address] Not available 03/29/2023 15:04:57 Reason for Referral None Reported. Results Created Date Observation Date Name Description Value Unit Range Abnormal Flag Note LastModifiedBy Organization Detail LastModifiedTime 03/29/2003/29/2023 XR, ankle , 3 or more view No observ ation record ed. [email or web address] [facility] [address] [place], [place], [address], 03/30/2023 13:42:24 03/29/20 23 03/29/2023 XR, foot, 3 or more view No observ ation record ed. [email or web address] [facility] [address] [place], [address], 03/30/2023 13:42:25 Result Notes None recorded. Problems No Known Problems Procedures Surgical History None recorded. Imaging Results Imaging Date Name Status LastModified by [facility] Details LastModified Time 03/29/2023 XR, ankle, 3 or more view completed [email or web address] [facility] [address] [place], [place], [address], 03/30/2023 13:42:24 03/29/2023 XR, foot, 3 or more view completed [email or web address] [facility] [address] [place], [place], [address], 03/30/2023 13:42:25 Procedure Notes None recorded. Medical Equipment None Reported. Allergies No known drug allergies Medications Name Sig Start Date Stop Date Status Note LastModified by Organization Details LastModified Time ibuprofen 600 mg tablet Take 1 tablet 3 times a day by oral route for 10 days. 023 active Not Available Not Available Not Avai lable Vitals Date Recorded Body height Body mass index (BMI) Percentile per age and sex Body mass index (BMI) Body weight Pain severity - 0-10 verbal numeric rating [Score] - Reported Respiratory rate Oxygen saturation Oxygen saturation in Arterial blood by Pulse oximetry Heart rate Body temperature Systolic blood pressure Diastolic blood pressure Provider Name and Address Organization Details Last Updated DateTime 3 187.96 cm 99 % 46.9 kg/m2 110210. 22 g 4 20 /min 99 % 99 % 67 /min 98.2 [degF] 129 mm[Hg] 93 mm[Hg] Magdalena Head PA - [facility] 14:17:08 Social History Question Answer Notes LastModified by Organizat ion Details LastModified Time Tobacco Smoking Status Never Smoker Magdalena bryant, PA [email or web address] 03/29/2023 14:15:35 What Is Your Level [...] SNOMED-CT Code Diagnosis ICD10 Code Diagnosis Note [id number] [address] [facility] [place] [address] 07/26/2022 09:40:15 07/26/2022 12:38:11 [id number] LUL[facility] CABALLERO [address] [facility] [facility] [place] [address] [place] [address] 03/29/2023 13:29:23 03/29/2023 15:44:03 Sprain of right ankle [id number] S93.401A Health Concerns Section Related Observation LastModified by Organization Detai ls LastModified Time None Recorded Concern Status LastModified by Organization Details LastModified Time None Recorded Advance Directives Directive None Recorded Payers Encounter Date Sequence Insurance Name Policy Number Policy Sanders Covered Member ID Sanders Member ID Guarantor Name 07/26/2022 1 [facility] [employer] - TOGETHER (MEDICAID HMO) [id number] Mahesh Lepe [id number] Mahesh Lepe 03/29/2023 1 [facility] (MEDICAID HMO) [id number] Mahesh Lepe [id number] [place] Notes Date Note Type Note Provider Name and Address Organization Details Recorded Time 03/29/2023 text/html Foot/Ankle UCReported bypatient.Notes:[age] y.o male pt presents with right ankle pain with swelling 2/2 rolling it while coming down the stairs. Pain is located along lateral malleolus and on dorsal aspect of foot. Pt is ambulating with mild limp LULÚ SALAS [address] [place], [address], PA - [facility] 03/29/2023 16:10:37
--- NOTE | 2024-11-04 09:48 | ED_ITS ---
HPI - Abdominal Pain General Chief Complaint: Abdominal Pain Stated Complaint: Abd pain Time Seen by Provider: 11/04/24 09:48 Source: patient Mode of arrival: ambulatory Limitations: no limitations History of Present Illness ED Provider: Dr. Daniele Aviles HPI narrative: 24-year-old male who presents emergency department for evaluation of nausea and abdominal pain. The patient states that he has been having abdominal pain since March of 2024. Patient points to his epigastric area when asked to localize the pain. He states he was a constant, burning sensation associated with nausea and occasionally vomiting. The patient has been treated with famotidine, Prilosec, esomeprazole, dicyclomine and sucralfate with no improvement of his pain. He states pain is gotten worse over the last 2 weeks and he was not able to go to work secondary to his discomfort. Patient states that whenever he eats food the pain gets significantly worse and he was lost his appetite. He denied fever but did have chills. Denied chest pain, shortness of breath, dyspnea on exertion, diarrhea, dark stools or bloody stools. Related Data Previous Rx's ?Medication ?Instructions ?Recorded omeprazole 20 mg capsule,delayed 20 mg PO DAILY #14 caps 04/02/24 release ondansetron 4 mg disintegrating 4 mg PO Q8H PRN nausea and 04/02/24 tablet vomiting #20 tabs ondansetron 4 mg disintegrating 4 mg PO Q6-8H PRN nausea and 05/13/24 tablet vomiting #20 tabs famotidine 10 mg tablet 10 mg PO DAILY 7 days #7 tabs 07/11/24 omeprazole 40 mg capsule,delayed 40 mg PO DAILY 1 week #7 caps 07/11/24 release sucralfate 100 mg/mL oral 5 ml PO QID #414 mL 07/11/24 suspension (Carafate) dicyclomine 10 mg capsule 10 mg PO QID PRN abdominal pain 08/05/24 #14 caps sucralfate 100 mg/mL oral 10 ml PO .before meals #420 mL 08/08/24 suspension (Carafate) metoclopramide HCl 10 mg tablet 10 mg PO Q6H PRN nausea and 09/25/24 (Reglan) vomiting #20 tabs sucralfate 100 mg/mL oral 10 ml PO BID 7 days #140 mL 09/25/24 suspension (Carafate) sucralfate 100 mg/mL oral 10 ml PO BID 4 weeks #560 mL 10/15/24 suspension (Carafate) amoxicillin 500 mg tablet 1,000 mg (2 x 500 mg) PO TID 14 11/04/24 days #84 tabs clarithromycin 500 mg tablet 500 mg PO Q12H 14 days #28 tabs 11/04/24 sucralfate 1 gram tablet 1 g PO TID 14 days #42 tabs 11/04/24 Allergies Allergy/AdvReac Type Severity Reaction Status Date / Time No Known Allergies Allergy Verified 11/04/24 08:30 Review of Systems Review of Systems Yes all other systems are reviewed and are negative [facility] Past Medical History Medical History No pertinent past medical history Social History Social History Unable to assess alcohol history related to: Unknown Alcohol intake: former Patient Tobacco Use Status: Never used Tobacco Substance Use Type: Marijuana Advance Directives: No Advance Directives Information Provided: No Do you have a plan to hurt others: No Plan Physical Exam ED Vital Signs: Vital Signs - 24 hr 11/04/24 08:27 Temperature 97.8 F Pulse Rate 77 Respiratory Rate 20 Blood Pressure 108/71 Pulse Oximetry 95 Oxygen Delivery Method Room Air BMI result Body Mass Index 44.7 Vital signs were normal Exam: General: Awake, alert in no distress, weight was 157.9 kg with an elevated BMI of 44.7 kg per m2 Head: Normocephalic, atraumatic EENT: PERRL, Lids normal, sclera normal, conjunctiva normal, nose normal , ears normal, throat without erythema or exudates Neck: Supple, no adenopathy Lung: breath sounds symmetric, no wheezing, rales or rhonchi Chest: symmetric movement, nontender Heart: regular rate and rhythm, normal S1, S2 no murmurs or rubs Abdomen: soft, moderate epigastric tenderness nondistended, normal bowel sounds Back: no vertebral tenderness, no CVAT Extremities: no deformities, moves all extremities symmetrically Neuro: Awake, alert, oriented, normal speech, moves all extremities symmetrically Psych: Pleasant, cooperative Medical Decision Making Medical Decision Making MDM Narrative: 24-year-old male who presents emergency department for evaluation of nausea and abdominal pain. The patient states that he has been having abdominal pain since March of 2024 which is not improves despite being on maximal acid reduction therapy (amotidine, Prilosec, esomeprazole, dicyclomine and sucralfate). Patient was having severe, epigastric pain, worse with eating food, loss of appetite, associated with nausea and intermittent vomiting. Vital signs were normal. Physical examination revealed epigastric tenderness. Differential diagnosis: ?Includes but is not limited to peptic ulcer disease, gastric ulcer, duodenal ulcer, H pylori, anemia, electrolyte abnormalities Course: 10:51 My interpretation patient's laboratory evaluation as follows: CBC was normal. CMP was normal. At this time I am concerned that the patient may have H pylori, he was not been able to see a trackmobile operator or got an endoscopy and I did discuss empiric therapy with the patient and he agreed. Patient was started on clarithromycin 500 mg b.i.d. times 14 days, amoxicillin 1000 mg 3 times a day times 14 days and sucralfate 1 g 3 times a day for 14 days. He was advised to continue taking his esomeprazole as prescribed by his provider. He was given printed and verbal instructions and discharged home. Patient's pain is become severe over the past 2 weeks and he was missed multiple days of work. I did give the patient a work note. Admission/Observation Consideration of admission/observation: Escalation of care including admission/observation considered (Yes) Lab Data [facility] Lab Attestation statement: I reviewed the patient's lab results. 11/04/24 08:41 11/04/24 08:41 Labs: Lab Results 11/04/24 Range/Units 08:41 WBC 7.4 (4.8-10.8) X10*3/uL RBC 5.32 (4.60-5.80) X10*6/uL Hgb 14.9 (14.0-18.0) g/dl Hct 44.7 (42.0-52.0) % MCV 84.0 (80.0-98.0) fL MCH 28.0 (27.0-33.0) pg MCHC 33.3 (31.0-36.0) g/dl RDW 12.0 (11.0-16.0) % Plt Count 286 (160-400) X10*3/uL MPV 9.8 (9.4-12.4) fL Immature Gran % (Auto) 0.4 (0.0-0.4) % Neut % (Auto) 61.2 (45-73) % Lymph % (Auto) 27.1 (20-40) % [place] % (Auto) 7.4 (2-11) % Eos % (Auto) 3.5 (0-4) % Baso % (Auto) 0.4 (0-2) % Lymph # (Auto) 2.0 (1.2-4.9) X10*3/uL [place] # (Auto) 0.6 (0.1-1.2) X10*3/uL Eos # (Auto) 0.3 (0.0-0.4) X10*3/uL Baso # (Auto) 0.0 (0.0-0.2) X10*3/uL Abs Immat Gran (auto) 0.03 (0.00-0.03) X10*3/uL Absolute Neuts (auto) 4.5 (2.0-8.3) x10*3/uL Absolute Nucleated RBC 0.000 (0.0-0.012) X10*3/uL Nucleated RBC % (auto) 0.0 (0.0-0.2) /100WBC Sodium 142 (135-145) mmol/L Potassium 3.7 (3.3-5.1) mmol/L Chloride 109 H (96-108) mmol/L Carbon Dioxide 25 (22-29) mmol/L Anion Gap 12 (12-20) BUN 14 (9-16) mg/dL Creatinine 0.85 (0.5-1.4) mg/dL Estim Creat Clear Calc 216.8 Estimated GFR > 60 Random Glucose 93 (60-115) mg/dL Calcium 9.1 (8.4-10.2) mg/dL Total Bilirubin 0.4 (0.0-1.0) mg/dL Direct Bilirubin 0.1 (0.0-0.5) mg/dL AST 27 (5-37) U/L ALT 46 H (0-40) U/L Alkaline Phosphatase 78 (39-117) U/L Total Protein 6.9 (6.5-8.0) g/dL Albumin 3.9 (3.5-5.0) g/dL Lipase 16 (8-78) U/L Prescription Management I considered prescription management with: Antibiotic (Amoxicillin, clarithromycin) and Other (Ulcer binding agent: Sucralfate) Discharge Plan Discharge Clinical Impression: Peptic ulcer disease Patient Disposition: Home, Self-Care Additional Instructions: Your blood work was unremarkable. Your symptoms are consistent with peptic ulcer disease versus a gastric/stomach ulcer. Sometimes nonhealing ulcers are caused by a bacterial infection, H pylori. Often, the way to test for H pylori is to biopsy your stomach however given the fact that you have been having symptoms for many months with no improvement despite aggressive treatment, I want to treat you empirically with antibiotics. Take amoxicillin 500 mg pills, 2 pills 3 times a day for 14 days. Take clarithromycin 500 mg pills, 1 pill every 12 hours for 14 days Take sucralfate 1 g pills, 1 pill 3 times a day for 14 days. It is important that you follow up with a trackmobile operator for re-evaluation especially if your symptoms do not improve after being treatment with these antibiotics. Continue taking your other medications as prescribed as well including your esomeprazole Follow-up with your doctor in 2 days. Please return to the emergency department if your symptoms get worse or if you develop any symptoms that are concerning to you. Please see the work note Prescriptions: New clarithromycin 500 mg tablet 500 mg PO Q12H 14 Days Qty: 28 0RF amoxicillin 500 mg tablet 1,000 mg PO TID 14 Days Qty: 84 0RF sucralfate 1 gram tablet 1 g PO TID 14 Days Qty: 42 0RF No Action ondansetron 4 mg tablet,disintegrating 4 mg PO Q6-8H PRN (Reason: nausea and vomiting) Qty: 20 0RF omeprazole 40 mg capsule,delayed release(DR/EC) 40 mg PO DAILY 7 Days Qty: 7 0RF famotidine 10 mg tablet 10 mg PO DAILY 7 Days Qty: 7 0RF sucralfate [Carafate] 100 mg/mL suspension 5 ml PO QID Qty: 414 0RF Rx Instructions: swish in mouth and swallow; use after food/drink ondansetron 4 mg tablet,disintegrating 4 mg PO Q8H PRN (Reason: nausea and vomiting) Qty: 20 0RF omeprazole 20 mg capsule,delayed release(DR/EC) 20 mg PO DAILY Qty: 14 0RF dicyclomine 10 mg capsule 10 mg PO QID PRN (Reason: abdominal pain) Qty: 14 0RF sucralfate [Carafate] 100 mg/mL suspension 10 ml PO .before meals Qty: 420 0RF sucralfate [Carafate] 100 mg/mL suspension 10 ml PO BID 7 Days Qty: 140 0RF metoclopramide HCl [Reglan] 10 mg tablet 10 mg PO Q6H PRN (Reason: nausea and vomiting) Qty: 20 0RF sucralfate [Carafate] 100 mg/mL suspension 10 ml PO BID 28 Days Qty: 560 0RF Rx Instructions: before meals Stand Alone Forms: Work/School Release Print Language: Tunisian
[2024-11-04 10:58] VITALS: BP 108/71; PULSE 77; RESP 20; TEMP 36.6; O2SAT 95
== END 2024-11-04 10:58 | disposition home or self-care (01) ==
PROVIDERS: Emergency Provider Emergency Medicine Emergency Medical Services; PCP Nurse Practitioner
DX: K27.9 Peptic ulcer, site unspecified, unspecified as acute or chronic, without hemorrhage or perforation (principal); R10.13 Epigastric pain
CPT/HCPCS: 36415; 80048; 80076; 83690; 85025; 99282; 99283

== ENCOUNTER 2024-11-04 13:21 | Emergency (ER) | payer OTHER, SELFPAY ==
--- NOTE | 2024-11-04 | ECG_ITS ---
Test Reason : chest paib Blood Pressure : */* mmHG Vent. Rate : 93 BPM Atrial Rate : 93 BPM P-R Int : 160 ms QRS Dur : 80 ms QT Int : 348 ms P-R-T Axes : 41 99 22 degrees QTcB Int : 432 ms Normal sinus rhythm Rightward axis Low voltage QRS Cannot rule out Anterior infarct , age undetermined Abnormal ECG No previous ECGs available Referred By: Generic ED Physician Electronically Signed By: GHADA GIPSON
[2024-11-04 13:38] VITALS: BP 118/58; PULSE 88; O2SAT 97
[2024-11-04 14:50] VITALS: BP 115/59; PULSE 87; RESP 20; TEMP 36.7; O2SAT 97; BMI 44.4
--- NOTE | 2024-11-04 14:53 | ED_ITS ---
HPI - General Adult General Chief complaint: General Medical Stated complaint: cp/palpiations, body aches Related Data Previous Rx's ?Medication ?Instructions ?Recorded omeprazole 20 mg capsule,delayed 20 mg PO DAILY #14 caps 04/02/24 release ondansetron 4 mg disintegrating 4 mg PO Q8H PRN nausea and 04/02/24 tablet vomiting #20 tabs ondansetron 4 mg disintegrating 4 mg PO Q6-8H PRN nausea and 05/13/24 tablet vomiting #20 tabs famotidine 10 mg tablet 10 mg PO DAILY 7 days #7 tabs 07/11/24 omeprazole 40 mg capsule,delayed 40 mg PO DAILY 1 week #7 caps 07/11/24 release sucralfate 100 mg/mL oral 5 ml PO QID #414 mL 07/11/24 suspension (Carafate) dicyclomine 10 mg capsule 10 mg PO QID PRN abdominal pain 08/05/24 #14 caps sucralfate 100 mg/mL oral 10 ml PO .before meals #420 mL 08/08/24 suspension (Carafate) metoclopramide HCl 10 mg tablet 10 mg PO Q6H PRN nausea and 09/25/24 (Reglan) vomiting #20 tabs sucralfate 100 mg/mL oral 10 ml PO BID 7 days #140 mL 09/25/24 suspension (Carafate) sucralfate 100 mg/mL oral 10 ml PO BID 4 weeks #560 mL 10/15/24 suspension (Carafate) amoxicillin 500 mg tablet 1,000 mg (2 x 500 mg) PO TID 14 11/04/24 days #84 tabs clarithromycin 500 mg tablet 500 mg PO Q12H 14 days #28 tabs 11/04/24 sucralfate 1 gram tablet 1 g PO TID 14 days #42 tabs 11/04/24 Allergies Allergy/AdvReac Type Severity Reaction Status Date / Time No Known Allergies Allergy Verified 11/04/24 14:54 [facility] Past Medical History Medical History No pertinent past medical history Social History Social History Unable to assess alcohol history related to: Unknown Alcohol intake: former Patient Tobacco Use Status: Never used Tobacco Substance Use Type: Marijuana Advance Directives: No Advance Directives Information Provided: No Do you have a plan to hurt others: No Plan Physical Exam ED Vital Signs: Vital Signs - 24 hr 11/04/24 14:50 Temperature 98.0 F Pulse Rate 87 Respiratory Rate 20 Blood Pressure 115/59 L Pulse Oximetry 97 Oxygen Delivery Method Room Air BMI result Body Mass Index 44.4 Course Course Course Narrative: This is an RME: Additional HPI, ROS, PE not included below will be deferred to primary provider. RME assessment and note performed by: Jeanette Souza PA-C This is a 24-year-old male who presents emergency department after being discharged earlier this morning. He went to take his daily medications with the new medications he was prescribed this morning, and was starting to feel ?terrible?. Reporting her palpitations, dizziness, shortness for breath, body aches, headaches on an empty stomach. Plan: Labs, EKG, viral swabs, further ER evaluation needed. Reevaluation(s) Reevaluation #1: Patient left without completing treatment. Medical Decision Making Lab Data 11/04/24 15:44 11/04/24 15:45 Labs: Lab Results 11/04/24 11/04/24 Range/Units 15:44 15:45 WBC 16.9 H (4.8-10.8) X10*3/uL RBC 5.61 (4.60-5.80) X10*6/uL Hgb 16.2 (14.0-18.0) g/dl Hct 47.0 (42.0-52.0) % MCV 83.8 (80.0-98.0) fL MCH 28.9 (27.0-33.0) pg MCHC 34.5 (31.0-36.0) g/dl RDW 11.9 (11.0-16.0) % Plt Count 301 (160-400) X10*3/uL MPV 9.7 (9.4-12.4) fL Immature Gran % (Auto) 0.7 H (0.0-0.4) % Neut % (Auto) 85.3 H (45-73) % Lymph % (Auto) 6.8 L (20-40) % [place] % (Auto) 6.8 (2-11) % Eos % (Auto) 0.2 (0-4) % Baso % (Auto) 0.2 (0-2) % Lymph # (Auto) 1.2 (1.2-4.9) X10*3/uL [place] # (Auto) 1.2 (0.1-1.2) X10*3/uL Eos # (Auto) 0.0 (0.0-0.4) X10*3/uL Baso # (Auto) 0.0 (0.0-0.2) X10*3/uL Abs Immat Gran (auto) 0.11 H (0.00-0.03) X10*3/uL Absolute Neuts (auto) 14.4 H (2.0-8.3) x10*3/uL Absolute Nucleated RBC 0.000 (0.0-0.012) X10*3/uL Nucleated RBC % (auto) 0.0 (0.0-0.2) /100WBC Sodium 143 (135-145) mmol/L Potassium 3.8 (3.3-5.1) mmol/L Chloride 110 H (96-108) mmol/L Carbon Dioxide 25 (22-29) mmol/L Anion Gap 12 (12-20) BUN 14 (9-16) mg/dL Creatinine 0.88 (0.5-1.4) mg/dL Estim Creat Clear Calc 208.8 Estimated GFR > 60 Random Glucose 83 (60-115) mg/dL Calcium 9.5 (8.4-10.2) mg/dL Magnesium 1.9 (1.6-2.6) mg/dL Total Bilirubin 0.6 (0.0-1.0) mg/dL Direct Bilirubin 0.2 (0.0-0.5) mg/dL AST 32 (5-37) U/L ALT 52 H (0-40) U/L Alkaline Phosphatase 85 (39-117) U/L Troponin I High Sens 8.9 (<3.5-35.0) ng/L Total Protein 7.7 (6.5-8.0) g/dL Albumin 4.4 (3.5-5.0) g/dL Influenza Type A (PCR) NEGATIVE (Negative) Influenza Type B (PCR) NEGATIVE (Negative) RSV RNA Qual (PCR) NEGATIVE (Negative) SARS-CoV-2 RNA (RT-PCR) NEGATIVE (Negative) Discharge Plan Discharge Clinical Impression: Myalgia Patient Disposition: Left W/O Completing Treatment Prescriptions: No Action ondansetron 4 mg tablet,disintegrating 4 mg PO Q6-8H PRN (Reason: nausea and vomiting) Qty: 20 0RF omeprazole 40 mg capsule,delayed release(DR/EC) 40 mg PO DAILY 7 Days Qty: 7 0RF famotidine 10 mg tablet 10 mg PO DAILY 7 Days Qty: 7 0RF sucralfate [Carafate] 100 mg/mL suspension 5 ml PO QID Qty: 414 0RF Rx Instructions: swish in mouth and swallow; use after food/drink ondansetron 4 mg tablet,disintegrating 4 mg PO Q8H PRN (Reason: nausea and vomiting) Qty: 20 0RF omeprazole 20 mg capsule,delayed release(DR/EC) 20 mg PO DAILY Qty: 14 0RF dicyclomine 10 mg capsule 10 mg PO QID PRN (Reason: abdominal pain) Qty: 14 0RF sucralfate [Carafate] 100 mg/mL suspension 10 ml PO .before meals Qty: 420 0RF sucralfate [Carafate] 100 mg/mL suspension 10 ml PO BID 7 Days Qty: 140 0RF metoclopramide HCl [Reglan] 10 mg tablet 10 mg PO Q6H PRN (Reason: nausea and vomiting) Qty: 20 0RF sucralfate [Carafate] 100 mg/mL suspension 10 ml PO BID 28 Days Qty: 560 0RF Rx Instructions: before meals clarithromycin 500 mg tablet 500 mg PO Q12H 14 Days Qty: 28 0RF amoxicillin 500 mg tablet 1,000 mg PO TID 14 Days Qty: 84 0RF sucralfate 1 gram tablet 1 g PO TID 14 Days Qty: 42 0RF Discharge Date/Time: 11/04/24 22:24
[2024-11-04 15:48] LABS: MANUAL DIFF FLAG NO
[2024-11-04 15:51] LABS: Basophils Percent Auto 0.2 % (0-2); Eosinophils Percent Auto 0.2 % (0-4); Hemoglobin 16.2 g/dl (14.0-18.0); Imm Gran Abs Auto 0.11 X10*3/uL (0.00-0.03); Imm Gran Pct Auto 0.7 % (0.0-0.4); Lymphocytes Absolute Auto 1.2 X10*3/uL (1.2-4.9); Lymphocytes Percent Auto 6.8 % (20-40); Mean Corpuscular HGB Conc 34.5 g/dl (31.0-36.0); Mean Corpuscular Hemoglobin 28.9 pg (27.0-33.0); Mean Corpuscular Volume 83.8 fL (80.0-98.0); Mean Platelet Volume 9.7 fL (9.4-12.4); Monocytes Absolute Auto 1.2 X10*3/uL (0.1-1.2); Monocytes Percent Auto 6.8 % (2-11); Neutrophils Absolute Auto 14.4 x10*3/uL (2.0-8.3); Neutrophils Percent Auto 85.3 % (45-73); Platelet Count 301 X10*3/uL (160-400); Red Blood Count 5.61 X10*6/uL (4.60-5.80); Red Cell Distribution Width 11.9 % (11.0-16.0); White Blood Count 16.9 X10*3/uL (4.8-10.8)
[2024-11-04 16:06] LABS: Alanine Aminotransferase 52 U/L (0-40); Albumin Level 4.4 g/dL (3.5-5.0); Alkaline Phosphatase 85 U/L (39-117); Anion Gap 12 (12-20); Aspartate Amino Transferase 32 U/L (5-37); Bilirubin Direct 0.2 mg/dL (0.0-0.5); Bilirubin Total 0.6 mg/dL (0.0-1.0); Blood Urea Nitrogen 14 mg/dL (9-16); Calcium 9.5 mg/dL (8.4-10.2); Carbon Dioxide 25 mmol/L (22-29); Chloride 110 mmol/L (96-108); Creatinine Clr Calc Pharmacy 208.8; Estimated Glomerular Filt Rate > 60; Glucose Random 83 mg/dL (60-115); Magnesium 1.9 mg/dL (1.6-2.6); Potassium 3.8 mmol/L (3.3-5.1); Sodium 143 mmol/L (135-145); Total Protein 7.7 g/dL (6.5-8.0)
[2024-11-04 16:13] LABS: Troponin-I High Sensitivity 8.9 ng/L (<3.5-35.0)
[2024-11-04 16:30] LABS: Influenza A PCR NEGATIVE (Negative); Influenza B PCR NEGATIVE (Negative); Resp Syncy Virus RNA Qual PCR NEGATIVE (Negative); SARS COV2 PCR INHOUSE NEGATIVE (Negative)
== END 2024-11-04 22:24 | disposition left against medical advice (07) ==
PROVIDERS: Physician Assistant Medical; Emergency Provider Emergency Medicine; PCP Nurse Practitioner
DX: M79.10 Myalgia, unspecified site (principal); R07.9 Chest pain, unspecified; Z03.818 Encounter for observation for suspected exposure to other biological agents ruled out
CPT/HCPCS: 0241U; 80048; 80076; 83735; 84484; 85025; 93005; 99283

== ENCOUNTER → 2024-11-04 13:36 | Outpatient (BNV) | payer OTHER, SELFPAY | PROVIDERS: Emergency Provider Emergency Medicine; PCP Nurse Practitioner; Visit Provider Internal Medicine | DX: R94.31 Abnormal electrocardiogram [ECG] [EKG] (principal); R07.9 Chest pain, unspecified | CPT/HCPCS: 93010 ==

== ENCOUNTER 2024-11-26 11:33 | Emergency (ER) | payer OTHER, SELFPAY ==
[2024-11-26 12:08] VITALS: BP 137/84; PULSE 77; RESP 19; TEMP 36.6; O2SAT 98; BMI 46.2
--- NOTE | 2024-11-26 12:12 | ED_ITS ---
HPI - General Adult General Chief complaint: General Medical Stated complaint: Stomach Ulcer Time Seen by Provider: 11/26/24 12:10 Source: patient, RN notes reviewed and old records reviewed Mode of arrival: ambulatory Limitations: no limitations History of Present Illness ED Provider: Zenia MONK narrative: 24-year-old male presents for evaluation of ?I need a note to go back to work. ? 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 He has been out of work due to abdominal issues and was diagnosed with peptic ulcer disease. He reports he has an appointment for an endoscopy coming up in his pain has resolved after being prescribed clarithromycin, amoxicillin and Carafate. He was requesting a refill of the Carafate Related Data Previous Rx's ?Medication ?Instructions ?Recorded omeprazole 20 mg capsule,delayed 20 mg PO DAILY #14 caps 04/02/24 release ondansetron 4 mg disintegrating 4 mg PO Q8H PRN nausea and 04/02/24 tablet vomiting #20 tabs ondansetron 4 mg disintegrating 4 mg PO Q6-8H PRN nausea and 05/13/24 tablet vomiting #20 tabs famotidine 10 mg tablet 10 mg PO DAILY 7 days #7 tabs 07/11/24 omeprazole 40 mg capsule,delayed 40 mg PO DAILY 1 week #7 caps 07/11/24 release sucralfate 100 mg/mL oral 5 ml PO QID #414 mL 07/11/24 suspension (Carafate) dicyclomine 10 mg capsule 10 mg PO QID PRN abdominal pain 08/05/24 #14 caps sucralfate 100 mg/mL oral 10 ml PO .before meals #420 mL 08/08/24 suspension (Carafate) metoclopramide HCl 10 mg tablet 10 mg PO Q6H PRN nausea and 09/25/24 (Reglan) vomiting #20 tabs sucralfate 100 mg/mL oral 10 ml PO BID 7 days #140 mL 09/25/24 suspension (Carafate) sucralfate 100 mg/mL oral 10 ml PO BID 4 weeks #560 mL 10/15/24 suspension (Carafate) amoxicillin 500 mg tablet 1,000 mg (2 x 500 mg) PO TID 14 11/04/24 days #84 tabs clarithromycin 500 mg tablet 500 mg PO Q12H 14 days #28 tabs 11/04/24 sucralfate 1 gram tablet 1 g PO TID 14 days #42 tabs 11/04/24 sucralfate 1 gram tablet 1 g PO TID #60 tabs 11/26/24 Allergies Allergy/AdvReac Type Severity Reaction Status Date / Time No Known Allergies Allergy Verified 11/26/24 12:10 Review of Systems Constitutional: Constitutional: Denies body ache(s), Denies chills, Denies fever(s) and Denies headache(s) Eyes: Eyes: Denies blurry vision ENT: Denies headache(s) Cardiovascular: Cardiovascular: Denies chest pain and Denies dyspnea Respiratory: Respiratory: Denies cough and Denies dyspnea Gastrointestinal: Gastrointestinal: Denies abdominal pain, Denies nausea and Denies vomiting Musculoskeletal: Musculoskeletal: Denies back pain Integumentary/Breasts: Skin/Breast: Denies rash Neurologic: Denies headache(s) [facility] Past Medical History Medical History No pertinent past medical history Social History Social History Unable to assess alcohol history related to: Unknown Alcohol intake: former Patient Tobacco Use Status: Never used Tobacco Substance Use Type: Marijuana Advance Directives: No Advance Directives Information Provided: Yes Do you have a plan to hurt others: No Plan Physical Exam ED Vital Signs: Vital Signs - 24 hr 11/26/24 12:08 11/26/24 12:19 Temperature 98 F 98 F Pulse Rate 77 77 Respiratory Rate 19 19 Blood Pressure 137/84 137/84 Pulse Oximetry 98 98 Oxygen Delivery Method Room Air Room Air BMI result Body Mass Index 46.2 Const General: healthy appearing, comfortable, no acute distress, alert and awake Nutritional Appearance: well nourished Orientation/consciousness: patient oriented x3 HENMT Head: Yes normocephalic and Yes atraumatic Eyes Eyelids: Yes eyelids normal Conjunctivae: conjunctivae normal Sclerae: sclerae normal Corneas: corneas normal Pupils: Equal, round and reactive pupils present EOM: EOMs intact bilaterally Neck Neck: Yes full ROM Resp Effort & Inspection: normal respiratory effort, able to speak in complete sentences and not labored GI Inspection: No distended Palpation (GI): Soft to palpation, not firm, nontender, no guarding and not rigid Skin General skin exam: elasticity normal Neuro General: patient oriented x3 Cranial nerves: Yes Equal, round and reactive pupils present and Yes Bilaterally intact EOM present Cognition (Neuro): normal cognition Extrem Other: Moving all extremities well without any obvious deformities Medical Decision Making Medical Decision Making MDM Narrative: 24-year-old male presents for evaluation of requests to go back to work. We will no longer has any abdominal pain, he was well-appearing vital signs are stable. I do not see any reason that he had it returned to work. I will also refill the patient's sucralfate Differential Diagnosis Differential Diagnoses: The differential diagnosis associated with the presentation includes Abdominal pain Peptic ulcer disease H pylori Gastritis Discharge Plan Discharge Clinical Impression: Peptic ulcer disease Patient Disposition: Home, Self-Care Instructions: Peptic Ulcer (ED) Additional Instructions: You are cleared to return to work. Continue all your medications as prescribed Follow-up with GI as planned, return for new or worsening symptoms Prescriptions: New sucralfate 1 gram tablet 1 g PO TID Qty: 60 0RF No Action ondansetron 4 mg tablet,disintegrating 4 mg PO Q6-8H PRN (Reason: nausea and vomiting) Qty: 20 0RF omeprazole 40 mg capsule,delayed release(DR/EC) 40 mg PO DAILY 7 Days Qty: 7 0RF famotidine 10 mg tablet 10 mg PO DAILY 7 Days Qty: 7 0RF sucralfate [Carafate] 100 mg/mL suspension 5 ml PO QID Qty: 414 0RF Rx Instructions: swish in mouth and swallow; use after food/drink ondansetron 4 mg tablet,disintegrating 4 mg PO Q8H PRN (Reason: nausea and vomiting) Qty: 20 0RF omeprazole 20 mg capsule,delayed release(DR/EC) 20 mg PO DAILY Qty: 14 0RF dicyclomine 10 mg capsule 10 mg PO QID PRN (Reason: abdominal pain) Qty: 14 0RF sucralfate [Carafate] 100 mg/mL suspension 10 ml PO .before meals Qty: 420 0RF sucralfate [Carafate] 100 mg/mL suspension 10 ml PO BID 7 Days Qty: 140 0RF metoclopramide HCl [Reglan] 10 mg tablet 10 mg PO Q6H PRN (Reason: nausea and vomiting) Qty: 20 0RF sucralfate [Carafate] 100 mg/mL suspension 10 ml PO BID 28 Days Qty: 560 0RF Rx Instructions: before meals clarithromycin 500 mg tablet 500 mg PO Q12H 14 Days Qty: 28 0RF amoxicillin 500 mg tablet 1,000 mg PO TID 14 Days Qty: 84 0RF sucralfate 1 gram tablet 1 g PO TID 14 Days Qty: 42 0RF Stand Alone Forms: Work/School Release Interventions: ED Discharge Assessment Last Done: 11/26/24 12:19 Discharge Date/Time: 11/26/24 12:20 Print Language: Wolof
[2024-11-26 12:19] VITALS: BP 137/84; PULSE 77; RESP 19; TEMP 36.6; O2SAT 98
--- OUTSIDE RECORDS SUMMARY | 2024-11-26 14:18 | XMS_ITS | Data Portability ---
Author Organization [facility] [address] Address [address] [place] [address] Assessment No assessment recorded. Plan of Treatment Reminders Order Date Submit Date Provider Last Modified By Organization Details Last Modified Time Details Appointments None recorded. Lab None recorded. Referral None recorded. Procedures None recorded. Surgeries None recorded. Imaging XR, foot, 3 or more view 2022 023 [facility], [address] [place], [address], 3 15:59:16 XR, ankle, 3 or more view 2022 023 [facility], [address] [place], [address], 3 15:56:20 Medication Orders ibuprofen 600 mg tablet 2022 023 [id number], [address] [place], [address], 15:39:36 Patient TargetsNo targets recorded. Patient Instructions Encounter Date Encounter Id Patient Instructions Last Modified By Organization Details Last Modified Time 03/29/2023 [id number] learning about rice (rest, ice, compression, and elevation) [email or web address] Not available 03/29/2023 15:04:44 Based on your [...] if you have any questions or concerns. [email or web address] Not available 03/29/2023 15:04:57 Reason for Referral None Reported. Results Created Date Observation Date Name Description Value Unit Range Abnormal Flag Note LastModifiedBy Organization Detail LastModifiedTime 03/29/2003/29/2023 XR, ankle , 3 or more view No observ ation record ed. [email or web address] [facility] [address] [place], [place], [address], 03/30/2023 13:42:24 03/29/20 23 03/29/2023 XR, foot, 3 or more view No observ ation record ed. [email or web address] [facility] [address] [place], [address], 03/30/2023 13:42:25 Result Notes None recorded. Problems No Known Problems Procedures Surgical History None recorded. Imaging Results Imaging Date Name Status LastModified by [facility] Details LastModified Time 03/29/2023 XR, ankle, 3 or more view completed [facility] [address] [place], [place], [address], 03/30/2023 13:42:24 03/29/2023 XR, foot, 3 or more view completed [facility] [address] [place], [place], [address], 03/30/2023 13:42:25 Procedure Notes None recorded. Medical [...] 3 187.96 cm 99 % 46.9 kg/m2 076427. 22 g 4 20 /min 99 % 99 % 67 /min 98.2 [degF] 129 mm[Hg] 93 mm[Hg] Magdalena Head PA - [employer] [facility] 14:17:08 Social History Question Answer Notes LastModified by Organizat ion Details LastModified Time Tobacco Smoking Status Never Smoker Magdalena bryant, PA [facility] 03/29/2023 14:15:35 What Is Your Level [...] SNOMED-CT Code Diagnosis ICD10 Code Diagnosis Note [id number] [address] [facility] [place] [address] 07/26/2022 09:40:15 07/26/2022 12:38:11 [id number] [facility] [address] [facility] [address] [place] [address] 03/29/2023 13:29:23 03/29/2023 15:44:03 Sprain of right ankle [id number] S93.401A Health Concerns Section Related Observation LastModified by Organization Detai ls LastModified Time None Recorded Concern Status LastModified by Organization Details LastModified Time None Recorded Advance Directives Directive None Recorded Payers Encounter Date Sequence Insurance Name Policy Number Policy Sanders Covered Member ID Sanders Member ID Guarantor Name 07/26/2022 1 [facility] [employer] - TO[employer]HER (MEDICAID HMO) [id number] Mahesh Lepe [id number] Mahesh Lepe 03/29/2023 1 [facility] (MEDICAID HMO) [id number] Mahesh Lepe [id number] Mahesh Lepe Notes Date Note Type Note [...] LULÚ SALAS [address] [place], [address], [place] - [employer] [facility] 03/29/2023 16:10:37
== END 2024-11-26 12:20 | disposition home or self-care (01) ==
PROVIDERS: Emergency Provider Emergency Medicine Emergency Medical Services; PCP Nurse Practitioner
DX: K27.9 Peptic ulcer, site unspecified, unspecified as acute or chronic, without hemorrhage or perforation (principal)
CPT/HCPCS: 99282; 99283

== ENCOUNTER 2025-02-04 11:11 | Emergency (ER) | payer OTHER, SELFPAY ==
[2025-02-04 11:47] VITALS: BP 119/68; PULSE 71; RESP 18; TEMP 36.4; O2SAT 97; BMI 46.7
--- NOTE | 2025-02-04 11:47 | ED.ABDPAIN ---
HPI - Abdominal Pain General Chief Complaint: Abdominal Pain Stated Complaint: Abd Pain, Vomiting Time Seen by Provider: 02/04/25 13:57 Source: patient Mode of arrival: ambulatory Limitations: no limitations History of Present Illness ED Provider: Dani Pagan PA-C HPI narrative: 24-year-old male with history of morbid obesity, chronic abdominal pain, gastric ulcers who presents to the ER for evaluation of acute on chronic nausea, vomiting and upset stomach. He states he woke up this morning nauseous and vomited once. He states this is not unusual for him. He is on esomeprazole and Carafate. He follows with GI and met with a agile test lead yesterday. He is supposed to be following a strict diet and slowly reintroduce foods to see what may be the culprit. He reports this pain is at his baseline and he needs a work note. He did not want to be bedded or seen. He states he is having normal bowel movements, no diarrhea or constipation. He is having some mild ongoing nausea that he thinks is due to not eating yet today. He denies any fever or chills. No chest pain or shortness of breath. MD elicited complaint: abdominal pain Pertinent past history: gastritis Onset (ago): month(s) Pain Consistency: intermittent Location: epigastric Severity: moderate Quality: aching Radiation: none Migration to: no migration Relieving factors: medication Context: history of similar episodes Associated symptoms: nausea and vomiting Related Data Previous Rx's ?Medication ?Instructions ?Recorded omeprazole 20 mg capsule,delayed 20 mg PO DAILY #14 caps 04/02/24 release ondansetron 4 mg disintegrating 4 mg PO Q8H PRN nausea and 04/02/24 tablet vomiting #20 tabs ondansetron 4 mg disintegrating 4 mg PO Q6-8H PRN nausea and 05/13/24 tablet vomiting #20 tabs famotidine 10 mg tablet 10 mg PO DAILY 7 days #7 tabs 07/11/24 omeprazole 40 mg capsule,delayed 40 mg PO DAILY 1 week #7 caps 07/11/24 release sucralfate 100 mg/mL oral 5 ml PO QID #414 mL 07/11/24 suspension (Carafate) dicyclomine 10 mg capsule 10 mg PO QID PRN abdominal pain 08/05/24 #14 caps sucralfate 100 mg/mL oral 10 ml PO .before meals #420 mL 08/08/24 suspension (Carafate) metoclopramide HCl 10 mg tablet 10 mg PO Q6H PRN nausea and 09/25/24 (Reglan) vomiting #20 tabs sucralfate 100 mg/mL oral 10 ml PO BID 7 days #140 mL 09/25/24 suspension (Carafate) sucralfate 100 mg/mL oral 10 ml PO BID 4 weeks #560 mL 10/15/24 suspension (Carafate) amoxicillin 500 mg tablet 1,000 mg (2 x 500 mg) PO TID 14 11/04/24 days #84 tabs clarithromycin 500 mg tablet 500 mg PO Q12H 14 days #28 tabs 11/04/24 sucralfate 1 gram tablet 1 g PO TID 14 days #42 tabs 11/04/24 sucralfate 1 gram tablet 1 g PO TID #60 tabs 11/26/24 Allergies Allergy/AdvReac Type Severity Reaction Status Date / Time No Known Allergies Allergy Verified 02/05/25 11:57 Review of Systems Review of Systems Yes all other systems are reviewed and are negative [facility] Past Medical History Medical History No pertinent past medical history Social History Social History Unable to assess alcohol history related to: Unknown Alcohol intake: former Patient Tobacco Use Status: Never used Tobacco Smoked in Last 30 Days: No Use of substances other than those prescribed or required for medical reasons: Yes Substance Use Type: Marijuana Substance Use Frequency: Daily Advance Directives: No Advance Directives Information Provided: Yes Physical Exam ED Vital Signs: Vital Signs - 24 hr 02/04/25 14:25 02/04/25 14:34 Temperature 98.0 F Pulse Rate 53 53 Respiratory Rate 16 16 Blood Pressure 122/82 122/82 Pulse Oximetry 97 97 BMI result Body Mass Index 46.7 Appearance: Alert. Oriented X3. No acute distress. Head: normocephalic, atraumatic. Eyes: Pupils equal, round and reactive to light. ENT: Pharynx normal. No tonsillar swelling or exudate. Neck: Normal inspection. Neck supple. CVS: Normal heart rate and rhythm. Pulses normal. Respiratory: No respiratory distress. Breath sounds normal. Abdomen: Obese soft and nontender. +BS x4 Skin: Skin warm and dry. Normal skin color. Normal skin turgor. No rashes. Extremities: No lower extremity edema. No joint swelling. Neuro/psych: Oriented X 3. Grossly normal, nonfocal. CN II-XII intact. Normal speech and cognition. Course Course Course Narrative: This is a Rapid Medical Exam performed in triage by Opal Miller PA-C. Full HPI, ROS and PE to be performed by primary ED provider. 24 yo M presenting to the ED c/o diffuse abd pain, N/V x today. Reports some diarrhea. Admits sx are acute on chronic. Reports decreased p.o. intake. States he is just working for work note PE: Abdomen is soft with mild epigastric tenderness, no rebound or guarding, nontoxic appearing, ambulating with steady gait Plan: labs Medical Decision Making Medical Decision Making [facility] Narrative: 24-year-old male here with acute on chronic abdominal pain and recurrent vomiting. He states these symptoms are baseline for him. His abdominal exam is benign. His labs today show no leukocytosis, he has some mild transaminitis which is baseline and largely unchanged from prior. He met with GI couple of weeks ago and a agile test lead yesterday. He has had several CT scans and multiple ER visits for similar presentations. No need for repeat imaging today. Given sublingual Zofran and GI cocktail. Patient would like to be discharged home with plan to follow-up as an outpatient. Stable for DC. Differential Diagnosis Differential Diagnoses: The differential diagnosis associated with the presentation includes Gastritis, PUD, GERD, food intolerance, inflammatory bowel disease, irritable bowel disease Lab Data [facility] Lab Attestation statement: I reviewed the patient's lab results. Mild elevation of transaminases with normal bilirubin and alk-phos, no leukocytosis 02/04/25 12:34 02/04/25 12:34 Labs: Lab Results 02/04/25 Range/Units 12:34 WBC 6.5 (4.8-10.8) X10*3/uL RBC 5.44 (4.60-5.80) X10*6/uL Hgb 15.4 (14.0-18.0) g/dl Hct 45.9 (42.0-52.0) % MCV 84.4 (80.0-98.0) fL MCH 28.3 (27.0-33.0) pg MCHC 33.6 (31.0-36.0) g/dl RDW 12.1 (11.0-16.0) % Plt Count 281 (160-400) X10*3/uL MPV 9.6 (9.4-12.4) fL Immature Gran % (Auto) 0.5 H (0.0-0.4) % Neut % (Auto) 70.2 (45-73) % Lymph % (Auto) 20.8 (20-40) % Stark % (Auto) 5.5 (2-11) % Eos % (Auto) 2.5 (0-4) % Baso % (Auto) 0.5 (0-2) % Lymph # (Auto) 1.4 (1.2-4.9) X10*3/uL Stark # (Auto) 0.4 (0.1-1.2) X10*3/uL Eos # (Auto) 0.2 (0.0-0.4) X10*3/uL Baso # (Auto) 0.0 (0.0-0.2) X10*3/uL Abs Immat Gran (auto) 0.03 (0.00-0.03) X10*3/uL Absolute Neuts (auto) 4.6 (2.0-8.3) x10*3/uL Absolute Nucleated RBC 0.000 (0.0-0.012) X10*3/uL Nucleated RBC % (auto) 0.0 (0.0-0.2) /100WBC Sodium 141 (135-145) mmol/L Potassium 4.3 (3.3-5.1) mmol/L Chloride 108 (96-108) mmol/L Carbon Dioxide 29 (22-29) mmol/L Anion Gap 8 L (12-20) BUN 14 (9-16) mg/dL Creatinine 1.06 (0.5-1.4) mg/dL Estim Creat Clear Calc 178.2 Estimated GFR > 60 Random Glucose 102 (60-115) mg/dL Calcium 9.1 (8.4-10.2) mg/dL Magnesium 1.9 (1.6-2.6) mg/dL Total Bilirubin 0.4 (0.0-1.0) mg/dL Direct Bilirubin 0.1 (0.0-0.5) mg/dL AST 41 H (5-37) U/L ALT 66 H (0-40) U/L Alkaline Phosphatase 80 (39-117) U/L Total Protein 7.1 (6.5-8.0) g/dL Albumin 4.4 (3.5-5.0) g/dL Lipase 14 (8-78) U/L External Record Review External record reviewed: Outpatient record, Prior outpatient labs and Prior outpatient radiology Prescription Management I considered prescription management with: Other (Antiemetic) Chronic Conditions Patient?s care impacted by: Other (Gastric ulcers, GERD) Medications Administered Discontinued Medications Generic Name Dose Route Start Last Admin Trade Name Freq PRN Reason Stop Dose Admin Al Hydroxide/Mg Hydroxide 30 ml 02/04/25 14:05 02/04/25 14:27 Magnesium Hydrox/Alum Hydrox 30 Ml Oral.Susp PO 02/04/25 14:06 30 ml ONCE ONE Administration Belladonna Alkaloids/Phenobarbital 10 ml 02/04/25 14:05 02/04/25 14:27 Phenobarb/Hyoscy/Atropine/Scop 10 Ml Elixir PO 02/04/25 14:06 10 ml ONCE ONE Administration Lidocaine HCl 15 ml 02/04/25 14:05 02/04/25 14:27 Lidocaine Hcl Viscous 2 % 15 Ml Solution MUCOUS MEM 02/04/25 14:06 15 ml ONCE ONE Administration Ondansetron HCl 4 mg 02/04/25 14:05 02/04/25 14:27 Ondansetron Odt 4 Mg Tab.Rapdis TRANSLINGU 02/04/25 14:06 4 mg ONCE ONE Administration Critical Care Time Critical Care Time Critical Care Time: No Discharge Plan Discharge Clinical Impression: Abdominal pain Qualifiers: Abdominal location: generalized Qualified Code(s): R10.84 - Generalized abdominal pain Patient Disposition: Home, Self-Care Instructions: Abdominal Pain (ED) Additional Instructions: Your labs showed some mild elevation of your liver enzymes which is chronic for you. Continue your GI medications and follow-up with the oven heater helper and agile test lead. If you develop new or worsening symptoms call 911 or come back to the ER for further evaluation. Prescriptions: No Action ondansetron 4 mg tablet,disintegrating 4 mg PO Q6-8H PRN (Reason: nausea and vomiting) Qty: 20 0RF omeprazole 40 mg capsule,delayed release(DR/EC) 40 mg PO DAILY 7 Days Qty: 7 0RF famotidine 10 mg tablet 10 mg PO DAILY 7 Days Qty: 7 0RF sucralfate [Carafate] 100 mg/mL suspension 5 ml PO QID Qty: 414 0RF Rx Instructions: swish in mouth and swallow; use after food/drink sucralfate 1 gram tablet 1 g PO TID Qty: 60 0RF ondansetron 4 mg tablet,disintegrating 4 mg PO Q8H PRN (Reason: nausea and vomiting) Qty: 20 0RF omeprazole 20 mg capsule,delayed release(DR/EC) 20 mg PO DAILY Qty: 14 0RF dicyclomine 10 mg capsule 10 mg PO QID PRN (Reason: abdominal pain) Qty: 14 0RF sucralfate [Carafate] 100 mg/mL suspension 10 ml PO .before meals Qty: 420 0RF sucralfate [Carafate] 100 mg/mL suspension 10 ml PO BID 7 Days Qty: 140 0RF metoclopramide HCl [Reglan] 10 mg tablet 10 mg PO Q6H PRN (Reason: nausea and vomiting) Qty: 20 0RF sucralfate [Carafate] 100 mg/mL suspension 10 ml PO BID 28 Days Qty: 560 0RF Rx Instructions: before meals clarithromycin 500 mg tablet 500 mg PO Q12H 14 Days Qty: 28 0RF amoxicillin 500 mg tablet 1,000 mg PO TID 14 Days Qty: 84 0RF sucralfate 1 gram tablet 1 g PO TID 14 Days Qty: 42 0RF Referrals: [facility] [place] [facility] [Provider Group] Radha Walker NP [Primary Care Provider] - Stand Alone Forms: Work/School Release Interventions: ED Discharge Assessment Last Done: 02/04/25 14:34 Discharge Date/Time: 02/04/25 14:35 Print Language: Nepali
[2025-02-04 12:39] LABS: MANUAL DIFF FLAG NO
[2025-02-04 12:40] LABS: Basophils Percent Auto 0.5 % (0-2); Eosinophils Absolute Auto 0.2 X10*3/uL (0.0-0.4); Eosinophils Percent Auto 2.5 % (0-4); Hematocrit 45.9 % (42.0-52.0); Hemoglobin 15.4 g/dl (14.0-18.0); Imm Gran Abs Auto 0.03 X10*3/uL (0.00-0.03); Imm Gran Pct Auto 0.5 % (0.0-0.4); Lymphocytes Absolute Auto 1.4 X10*3/uL (1.2-4.9); Lymphocytes Percent Auto 20.8 % (20-40); Mean Corpuscular HGB Conc 33.6 g/dl (31.0-36.0); Mean Corpuscular Hemoglobin 28.3 pg (27.0-33.0); Mean Corpuscular Volume 84.4 fL (80.0-98.0); Mean Platelet Volume 9.6 fL (9.4-12.4); Monocytes Absolute Auto 0.4 X10*3/uL (0.1-1.2); Monocytes Percent Auto 5.5 % (2-11); Neutrophils Absolute Auto 4.6 x10*3/uL (2.0-8.3); Neutrophils Percent Auto 70.2 % (45-73); Platelet Count 281 X10*3/uL (160-400); Red Blood Count 5.44 X10*6/uL (4.60-5.80); Red Cell Distribution Width 12.1 % (11.0-16.0); White Blood Count 6.5 X10*3/uL (4.8-10.8)
[2025-02-04 12:59] LABS: Alanine Aminotransferase 66 U/L (0-40); Alkaline Phosphatase 80 U/L (39-117); Anion Gap 8 (12-20); Aspartate Amino Transferase 41 U/L (5-37); Bilirubin Direct 0.1 mg/dL (0.0-0.5); Blood Urea Nitrogen 14 mg/dL (9-16); Calcium 9.1 mg/dL (8.4-10.2); Carbon Dioxide 29 mmol/L (22-29); Chloride 108 mmol/L (96-108); Glucose Random 102 mg/dL (60-115); Lipase 14 U/L (8-78); Magnesium 1.9 mg/dL (1.6-2.6); Potassium 4.3 mmol/L (3.3-5.1); Sodium 141 mmol/L (135-145); Total Protein 7.1 g/dL (6.5-8.0)
[2025-02-04 14:08] LABS: Creatinine Clr Calc Pharmacy 178.2; Estimated Glomerular Filt Rate > 60
[2025-02-04 14:09] LABS: Albumin Level 4.4 g/dL (3.5-5.0); Bilirubin Total 0.4 mg/dL (0.0-1.0)
--- OUTSIDE RECORDS SUMMARY | 2025-02-04 14:10 | XMS_ITS | Data Portability ---
Author Organization [facility] [address] Address [address] [place] [address] Assessment No assessment recorded. Plan of Treatment Reminders Order Date Submit Date Provider Last Modified By Organization Details Last Modified Time Details Appointments None recorded. Lab None recorded. Referral None recorded. Procedures None recorded. Surgeries None recorded. Imaging XR, foot, 3 or more view 2022 023 [facility], [address] [place], [address], 3 15:59:16 XR, ankle, 3 or more view 2022 023 [facility], [address] [place], [address], 3 15:56:20 Medication Orders ibuprofen 600 mg tablet 2022 023 [id number], [id number] [place], [address], 15:39:36 Patient TargetsNo targets recorded. Patient Instructions Encounter Date Encounter Id Patient Instructions Last Modified By Organization Details Last Modified Time 03/29/2023 [id number] learning about rice (rest, ice, compression, and elevation) [email or web address] Not available 03/29/2023 15:04:44 Based on your [...] if you have any questions or concerns. [email or web address] Not available 03/29/2023 15:04:57 Reason for Referral None Reported. Results Created Date Observation Date Name Description Value Unit Range Abnormal Flag Note LastModifiedBy Organization Detail LastModifiedTime 03/29/2003/29/2023 XR, ankle , 3 or more view No observ ation record ed. [email or web address] [facility] [address] [place], [place], [address], 03/30/2023 13:42:24 03/29/20 23 03/29/2023 XR, foot, 3 or more view No observ ation record ed. [email or web address] [facility] [address] [place], [address], 03/30/2023 13:42:25 Result Notes None recorded. Problems No Known Problems Procedures Surgical History None recorded. Imaging Results Imaging Date Name Status LastModified by [facility] Details LastModified Time 03/29/2023 XR, ankle, 3 or more view completed [email or web address] [facility] [address] [place], [place], [address], 03/30/2023 13:42:24 03/29/2023 XR, foot, 3 or more view completed [email or web address] [facility] [address] [place], [place], [address], 03/30/2023 13:42:25 Procedure Notes None recorded. Medical [...] sex Body mass index (BMI) Body weight Respiratory rate Oxygen saturation Oxygen saturation in Arterial blood by Pulse oximetry Heart rate Body temperature Systolic blood pressure Diastolic blood pressure Provider Name and Address Organization Details Last Updated DateTime 3 187.96 cm 99 % 46.9 kg/m2 879314. 22 g 20 /min 99 % 99 % 67 /min 98.2 [degF] 129 mm[Hg] 93 mm[Hg] Magdalena Head [employer] 14:17:08 Social History Question Answer Notes LastModified by [employer] Details LastModified Time Tobacco Smoking Status Never Smoker Magdalena bryant [employer] 03/29/2023 14:15:35 Which Illicit Or Recreational Drugs Have You Used? Marijuana Information not available 03/29/2023 Have You Had Direct Contact, Or Contact During Intimacy, With Monkeypox Rash, Scabs, Or Body Fluids From A Person With Monkeypox? No Information not available 03/29/2023 Have You Recently Traveled Abroad? No Information not available 03/29/2023 Sex: Unknown Functional Status Question Answer Note LastModified by [employer] Details LastModified Time Do you use any illicit or recreational drugs? Yes Information not available 03/29/2023 Do you or have you ever used any other forms of tobacco or nicotine? No Information not available 03/29/2023 What is your level of alcohol consumption? None Information not available 03/29/2023 Mental Status None recorded. Family History Relationship [...] SNOMED-CT Code Diagnosis ICD10 Code Diagnosis Note [id number] [address] [facility] [address] [place] [address] 07/26/2022 09:40:15 07/26/2022 12:38:11 [id number] [facility] [address] [address] [place] [address] 03/29/2023 13:29:23 03/29/2023 15:44:03 Sprain of right ankle [id number] S93.401A Health Concerns Section Related Observation LastModified by Organization Detai ls LastModified Time None Recorded Concern Status LastModified by Organization Details LastModified Time None Recorded Advance Directives Directive None Recorded Payers Insurance Date Sequence Insurance Name Policy Number Policy Sanders Covered Member ID Sanders Member ID Guarantor Name 03/29/2023 1 [facility] [employer] - [employer] (MEDICAID HMO) [id number] Mahesh Lepe [id number] Mahesh Lepe 03/29/[address] [facility]ICA[facility] [id number] Mahesh Lepe [id number] Mahesh Lepe 03/29/2023 1 [place] [facility] Mahesh Lepe [id number] Mahesh Lepe 03/29/[address] [facility] [id number] Mahesh Lepe [id number] Mahesh Lepe Notes Date Note Type Note Provider Name and Address Organization Details Recorded Time 03/29/2023 text/html Foot/Ankle UCReported bypatient.Notes:[age] y.o male pt presents with right ankle pain with swelling 2/2 rolling it while coming down the stairs. Pain is located along lateral malleolus and on dorsal aspect of foot. Pt is ambulating with mild limp LULÚ SALAS [address] [place], [address], [place] - [facility] 03/29/2023 16:10:37
[2025-02-04 14:25] VITALS: BP 122/82; PULSE 53; RESP 16; O2SAT 97
[2025-02-04] MEDS: Ondansetron ODT 4 MG TAB.RAPDIS TRANSLINGU (14:27)
[2025-02-04] MEDS: PHENobarb/Hyoscy/Atropine/Scop 10 ML ELIXIR PO (14:27)
[2025-02-04] MEDS: Lidocaine HCl Viscous 2 % 15 ML SOLUTION MUCOUS MEM (14:27)
[2025-02-04] MEDS: Magnesium Hydrox/Alum Hydrox 30 ML ORAL.SUSP PO (14:27)
[2025-02-04 14:34] VITALS: BP 122/82; PULSE 53; RESP 16; TEMP 36.7; O2SAT 97
== END 2025-02-04 14:35 | disposition home or self-care (01) ==
PROVIDERS: Physician Assistant; Emergency Provider Emergency Medicine; PCP Nurse Practitioner
DX: R10.2 Pelvic and perineal pain (principal); R11.2 Nausea with vomiting, unspecified; Z79.899 Other long term (current) drug therapy
CPT/HCPCS: 36415; 80048; 80076; 83690; 83735; 85025; 99283; 99284

== ENCOUNTER 2025-02-05 11:40 | Emergency (ER) | payer OTHER, SELFPAY ==
[2025-02-05 11:54] VITALS: BP 112/77; PULSE 73; RESP 18; TEMP 36.9; O2SAT 96; BMI 46.1
--- NOTE | 2025-02-05 11:55 | ED_ITS ---
HPI - General Adult General Chief complaint: Abdominal Pain Stated complaint: Abd pain Time Seen by Provider: 02/05/25 12:33 Source: patient Mode of arrival: ambulatory Limitations: no limitations History of Present Illness ED Provider: Alysa Allen PA-C HPI narrative: 24-year-old male with history of morbid obesity, chronic abdominal pain, gastric ulcers who presents to the ER for evaluation of acute on chronic nausea, vomiting and upset stomach. He states nausea and vomiting have been going on for 3 days and is associated with decreased appetite. He states his abdominal pain started last year. He follows GI and had endoscopy and colonoscopy 12/09 with negative findings. He reports he takes omeprazole and sucralfate daily without effect. Last BM was this morning and he has been passing flatus. On chart review, patient presented to the ED yesterday with the same symptoms. He denies bloddy vomit, black/tarry/gross blood in stool, chest pain, SOB. MD complaint: nausea Onset (ago): day(s) (3) Radiation: non-radiation Severity: moderate Quality: aching Pain Consistency: intermittent Relieving factors: none Exacerbating factors: none Associated symptoms: nausea/vomiting Treatments prior to arrival: none Related Data Previous Rx's ?Medication ?Instructions ?Recorded omeprazole 20 mg capsule,delayed 20 mg PO DAILY #14 caps 04/02/24 release ondansetron 4 mg disintegrating 4 mg PO Q8H PRN nausea and 04/02/24 tablet vomiting #20 tabs ondansetron 4 mg disintegrating 4 mg PO Q6-8H PRN nausea and 05/13/24 tablet vomiting #20 tabs famotidine 10 mg tablet 10 mg PO DAILY 7 days #7 tabs 07/11/24 omeprazole 40 mg capsule,delayed 40 mg PO DAILY 1 week #7 caps 07/11/24 release sucralfate 100 mg/mL oral 5 ml PO QID #414 mL 07/11/24 suspension (Carafate) dicyclomine 10 mg capsule 10 mg PO QID PRN abdominal pain 08/05/24 #14 caps sucralfate 100 mg/mL oral 10 ml PO .before meals #420 mL 08/08/24 suspension (Carafate) metoclopramide HCl 10 mg tablet 10 mg PO Q6H PRN nausea and 09/25/24 (Reglan) vomiting #20 tabs sucralfate 100 mg/mL oral 10 ml PO BID 7 days #140 mL 09/25/24 suspension (Carafate) sucralfate 100 mg/mL oral 10 ml PO BID 4 weeks #560 mL 10/15/24 suspension (Carafate) amoxicillin 500 mg tablet 1,000 mg (2 x 500 mg) PO TID 14 11/04/24 days #84 tabs clarithromycin 500 mg tablet 500 mg PO Q12H 14 days #28 tabs 11/04/24 sucralfate 1 gram tablet 1 g PO TID 14 days #42 tabs 11/04/24 sucralfate 1 gram tablet 1 g PO TID #60 tabs 11/26/24 Allergies Allergy/AdvReac Type Severity Reaction Status Date / Time No Known Allergies Allergy Verified 02/05/25 11:57 Review of Systems 2 Review of Systems: CONST: Negative for fever, body aches and chills. HENT: Negative for neck pain/stiffness, headache, congestion, sore throat, swelling. EYES: Negative for discharge/pain or vision changes. RESP: Negative for cough/hemoptysis and shortness of breath. CV: Negative chest pain, difficulty breathing, palpitations. ABD: POS pain, nausea, vomiting, diarrhea. : Negative increase frequency, dysuria, blood in urine or stool. MUSC: Negative for muscle aches, edema. SKIN: Negative rash, lesions/sores. NEURO: Negative headache, dizziness, weakness. Yes all other systems are reviewed and are negative PMFSH Past Medical History Attestation statement: The following information was validated with the patient. Source: old records reviewed and nursing notes reviewed Medical History No pertinent past medical history Social History Social History Unable to assess alcohol history related to: Unknown Alcohol intake: former Patient Tobacco Use Status: Never used Tobacco Smoked in Last 30 Days: No Use of substances other than those prescribed or required for medical reasons: Yes Substance Use Type: Marijuana Substance Use Frequency: Daily Advance Directives: No Advance Directives Information Provided: Yes Physical Exam ED Vital Signs: Vital Signs - 24 hr 02/05/25 11:54 02/05/25 12:48 02/05/25 14:01 Temperature 98.5 F 98.1 F Pulse Rate 73 68 71 Respiratory Rate 18 16 16 Blood Pressure 112/77 108/70 143/94 H Pulse Oximetry 96 95 100 Oxygen Delivery Method Room Air Room Air Room Air BMI result Body Mass Index 46.1 Const General: cooperative, healthy appearing, comfortable and no acute distress; No diaphoretic Nutritional Appearance: obese Orientation/consciousness: patient oriented x3 Limitations: no limitations HENMT Head: Yes normal to inspection Eyes General: appearance normal, both eyes and all related structures Pupils: Equal, round and reactive pupils present EOM: EOMs intact bilaterally Neck Neck: Yes normal visual inspection and Yes full ROM Chest Chest palpation & inspection: normal inspection of the chest Resp Effort & Inspection: normal respiratory effort, able to speak in complete sentences, no audible wheezes, no cough, respiratory effort not decreased, no grunting, not labored, no nasal flaring, no respiratory distress and no use of accessory muscles Auscultation: clear to auscultation bilaterally, no crackles, no rales, no rhonchi, no wheezes, breath sounds present and lung sounds not diminished Cardio Jugular venous distension: no JVD Rate: regular rate Rhythm: regular rhythm Heart sounds: S1 normal heart sound present and S2 normal heart sound present GI Inspection: Yes normal to inspection, No abdominal wall ecchymosis, No distended, Yes Abdominal panniculus present and Yes obesity Palpation (GI): Soft to palpation, Tenderness to palpation present (GI) (diffuse ), no guarding, not rigid, no pulsatile masses and No Rebound tenderness present Auscultation: normal bowel sounds Skin General skin exam: no rashes or lesions noted Neuro General: patient oriented x3 Cranial nerves: Yes Equal, round and reactive pupils present Course Course Course Narrative: This is a rapid medical exam performed by Celeste Garcia NP: Additional HPI, ROS, PE not included below will be deferred to primary provider. Patient is a 24-year-old male with history of morbid obesity, chronic abdominal pain, gastric ulcers presenting with complaint of central abdominal pain, nausea, vomiting and diarrhea since last March. Has seen PCP, GI, was here yesterday. Reports diarrhea yesterday and vomiting this morning. Plan: labs Medications Administered Discontinued Medications Generic Name Dose Route Start Last Admin Trade Name Freq PRN Reason Stop Dose Admin Diphenhydramine HCl 25 mg 02/05/25 13:18 02/05/25 13:36 Diphenhydramine Hcl 50 Mg/Ml Vial IVPUSH 02/05/25 13:19 25 mg ONCE ONE Administration Lactated Ringer's 1,000 mls @ 999 mls/hr 02/05/25 13:30 02/05/25 15:07 Lr IV 02/05/25 14:30 Infused .Q1H1M HEIDI Infusion Metoclopramide HCl 10 mg 02/05/25 13:18 02/05/25 13:36 Metoclopramide Hcl 10 Mg/2 Ml Vial IVPUSH 02/05/25 13:19 10 mg ONCE ONE Administration Medical Decision Making Medical Decision Making [facility] Narrative: 24-year-old male with history of morbid obesity, chronic abdominal pain, gastric ulcers who presents to the ER for evaluation of acute on chronic nausea, vomiting and upset stomach. He states nausea and vomiting have been going on for 3 days and is associated with decreased appetite. VSS, in no acute distress, nontoxic appearing. On physical exam abdomen is soft with mild diffuse TTP, nondistended, no guarding, no peritoneal signs, no rebound tenderness, normal bowel sounds in all 4 quadrants. Not actively vomiting in the department. Labs are unremarkable. Patient recently had endoscopy and colonoscopy 12/09 with negative findings. Patient not currently taking NSAIDS, does smoke marijuana daily. States he does follow closely with GI at this time. Will start IV fluids, 10mg reglan, and 25mg Benadryl for nausea. Will reassess after medications given for resolution of symptoms. Course 16:02- Patient states his abdominal pain, and nausea has resolved after IV fluids, Benadryl and Reglan. He is currently tolerating PO clears without nausea. He states he feels comfortable to go home for self care. Patient counseled on refraining from smoking marijuana as this could be contributing to his symptoms. He was urged to follow up with PCP and GI for managment of chronic abdominal pain and nausea. Differential Diagnosis Differential Diagnoses: The differential diagnosis associated with the presentation includes GERD Gastritis Cyclic vomiting IBS PUD Admission/Observation Consideration of admission/observation: Escalation of care including admission/observation considered Lab Data MDM Lab Attestation statement: I reviewed the patient's lab results. 02/05/25 12:14 02/05/25 12:14 Labs: Lab Results 02/05/25 Range/Units 12:14 WBC 7.0 (4.8-10.8) X10*3/uL RBC 5.29 (4.60-5.80) X10*6/uL Hgb 14.9 (14.0-18.0) g/dl Hct 44.9 (42.0-52.0) % MCV 84.9 (80.0-98.0) fL MCH 28.2 (27.0-33.0) pg MCHC 33.2 (31.0-36.0) g/dl RDW 12.0 (11.0-16.0) % Plt Count 284 (160-400) X10*3/uL MPV 9.6 (9.4-12.4) fL Immature Gran % (Auto) 0.6 H (0.0-0.4) % Neut % (Auto) 71.7 (45-73) % Lymph % (Auto) 19.6 L (20-40) % [place] % (Auto) 5.8 (2-11) % Eos % (Auto) 2.0 (0-4) % Baso % (Auto) 0.3 (0-2) % Lymph # (Auto) 1.4 (1.2-4.9) X10*3/uL [place] # (Auto) 0.4 (0.1-1.2) X10*3/uL Eos # (Auto) 0.1 (0.0-0.4) X10*3/uL Baso # (Auto) 0.0 (0.0-0.2) X10*3/uL Abs Immat Gran (auto) 0.04 H (0.00-0.03) X10*3/uL Absolute Neuts (auto) 5.0 (2.0-8.3) x10*3/uL Absolute Nucleated RBC 0.000 (0.0-0.012) X10*3/uL Nucleated RBC % (auto) 0.0 (0.0-0.2) /100WBC Sodium 139 (135-145) mmol/L Potassium 4.0 (3.3-5.1) mmol/L Chloride 110 H (96-108) mmol/L Carbon Dioxide 24 (22-29) mmol/L Anion Gap 9 L (12-20) BUN 14 (9-16) mg/dL Creatinine 0.87 (0.5-1.4) mg/dL Estim Creat Clear Calc 215.6 Estimated GFR > 60 Random Glucose 101 (60-115) mg/dL Calcium 9.2 (8.4-10.2) mg/dL Magnesium 1.9 (1.6-2.6) mg/dL Total Bilirubin 0.4 (0.0-1.0) mg/dL AST 42 H (5-37) U/L ALT 71 H (0-40) U/L Alkaline Phosphatase 80 (39-117) U/L Total Protein 6.7 (6.5-8.0) g/dL Albumin 4.1 (3.5-5.0) g/dL Lipase 14 (8-78) U/L External Record Review External record reviewed: Inpatient record, Office record, Outpatient record and Prior outpatient labs Chronic Conditions Patient?s care impacted by: Other (PUD) Discharge Plan Discharge Clinical Impression: Abdominal pain Qualifiers: Abdominal location: generalized Qualified Code(s): R10.84 - Generalized abdominal pain Patient Disposition: Home, Self-Care Instructions: Abdominal Pain (ED) Additional Instructions: You were evaluated in the emergency department today due to abdominal pain. Your labs are reassuring that there is no acute process causing your abdominal discomfort. You were given IV fluids, Reglan, and Benadryl for nausea that made the symptoms better while in the department. Try to refrain from smoking marijuana as this could be contributing to your symptoms. Follow closely with GI to manage your peptic ulcer disease. Please follow-up with your PCP to ensure your improvement. Please return to the emergency department if you experience fevers over 100.4?, bloody vomit, black/tarry / bloody stool, worsening abdominal pain, or any other new, worsening, concerning symptoms Prescriptions: No Action ondansetron 4 mg tablet,disintegrating 4 mg PO Q6-8H PRN (Reason: nausea and vomiting) Qty: 20 0RF omeprazole 40 mg capsule,delayed release(DR/EC) 40 mg PO DAILY 7 Days Qty: 7 0RF famotidine 10 mg tablet 10 mg PO DAILY 7 Days Qty: 7 0RF sucralfate [Carafate] 100 mg/mL suspension 5 ml PO QID Qty: 414 0RF Rx Instructions: swish in mouth and swallow; use after food/drink sucralfate 1 gram tablet 1 g PO TID Qty: 60 0RF ondansetron 4 mg tablet,disintegrating 4 mg PO Q8H PRN (Reason: nausea and vomiting) Qty: 20 0RF omeprazole 20 mg capsule,delayed release(DR/EC) 20 mg PO DAILY Qty: 14 0RF dicyclomine 10 mg capsule 10 mg PO QID PRN (Reason: abdominal pain) Qty: 14 0RF sucralfate [Carafate] 100 mg/mL suspension 10 ml PO .before meals Qty: 420 0RF sucralfate [Carafate] 100 mg/mL suspension 10 ml PO BID 7 Days Qty: 140 0RF metoclopramide HCl [Reglan] 10 mg tablet 10 mg PO Q6H PRN (Reason: nausea and vomiting) Qty: 20 0RF sucralfate [Carafate] 100 mg/mL suspension 10 ml PO BID 28 Days Qty: 560 0RF Rx Instructions: before meals clarithromycin 500 mg tablet 500 mg PO Q12H 14 Days Qty: 28 0RF amoxicillin 500 mg tablet 1,000 mg PO TID 14 Days Qty: 84 0RF sucralfate 1 gram tablet 1 g PO TID 14 Days Qty: 42 0RF Stand Alone Forms: Work/School Release Print Language: Angolan
[2025-02-05 12:18] LABS: MANUAL DIFF FLAG NO
[2025-02-05 12:19] LABS: Basophils Percent Auto 0.3 % (0-2); Eosinophils Absolute Auto 0.1 X10*3/uL (0.0-0.4); Hematocrit 44.9 % (42.0-52.0); Hemoglobin 14.9 g/dl (14.0-18.0); Imm Gran Abs Auto 0.04 X10*3/uL (0.00-0.03); Imm Gran Pct Auto 0.6 % (0.0-0.4); Lymphocytes Absolute Auto 1.4 X10*3/uL (1.2-4.9); Lymphocytes Percent Auto 19.6 % (20-40); Mean Corpuscular HGB Conc 33.2 g/dl (31.0-36.0); Mean Corpuscular Hemoglobin 28.2 pg (27.0-33.0); Mean Corpuscular Volume 84.9 fL (80.0-98.0); Mean Platelet Volume 9.6 fL (9.4-12.4); Monocytes Absolute Auto 0.4 X10*3/uL (0.1-1.2); Monocytes Percent Auto 5.8 % (2-11); Neutrophils Percent Auto 71.7 % (45-73); Platelet Count 284 X10*3/uL (160-400); Red Blood Count 5.29 X10*6/uL (4.60-5.80)
[2025-02-05 12:38] LABS: Alanine Aminotransferase 71 U/L (0-40); Albumin Level 4.1 g/dL (3.5-5.0); Alkaline Phosphatase 80 U/L (39-117); Anion Gap 9 (12-20); Aspartate Amino Transferase 42 U/L (5-37); Bilirubin Total 0.4 mg/dL (0.0-1.0); Blood Urea Nitrogen 14 mg/dL (9-16); Calcium 9.2 mg/dL (8.4-10.2); Carbon Dioxide 24 mmol/L (22-29); Chloride 110 mmol/L (96-108); Creatinine Clr Calc Pharmacy 215.6; Estimated Glomerular Filt Rate > 60; Glucose Random 101 mg/dL (60-115); Lipase 14 U/L (8-78); Magnesium 1.9 mg/dL (1.6-2.6); Sodium 139 mmol/L (135-145); Total Protein 6.7 g/dL (6.5-8.0)
[2025-02-05 12:48] VITALS: BP 108/70; PULSE 68; RESP 16; O2SAT 95
[2025-02-05] MEDS: diphenhydrAMINE HCL 50 MG/ML VIAL 25 MG IVPUSH (13:36)
[2025-02-05] MEDS: Metoclopramide HCl 10 MG/2 ML VIAL IVPUSH (13:36)
[2025-02-05] MEDS: Lactated Ringers 1,000 ML 999 ML IV (13:36)
--- NOTE | 2025-02-05 13:46 | PC.NURSE ---
pt is alert and oriented, skin pwd, respirations even and unlabored, pt reports all over abd pain and nausea/vomiting that's intermitted since last year of March, positive bowel sounds in all 4 quadrants abd soft and slightly tender in the lower abd area, no vomiting at this time pt is a daily marijuana smoker
[2025-02-05 14:01] VITALS: BP 143/94; PULSE 71; RESP 16; TEMP 36.7; O2SAT 100
[2025-02-05 16:14] VITALS: BP 112/62; PULSE 77; RESP 16; TEMP 36.9; O2SAT 98
== END 2025-02-05 16:16 | disposition home or self-care (01) ==
PROVIDERS: Registered Nurse Emergency; Emergency Provider Emergency Medicine; PCP Nurse Practitioner
DX: R10.84 Generalized abdominal pain (principal); R11.2 Nausea with vomiting, unspecified; F12.90 Cannabis use, unspecified, uncomplicated; E66.01 Morbid (severe) obesity due to excess calories; Z68.42 Body mass index [BMI] 45.0-49.9, adult; Z79.899 Other long term (current) drug therapy
CPT/HCPCS: 36415; 80053; 83690; 83735; 85025; 96361; 96374; 96375; 99284; J1200; J2765; J7120

== ENCOUNTER 2025-02-09 11:21 | Emergency (ER) | payer OTHER, SELFPAY ==
[2025-02-09 11:27] VITALS: BP 120/76; PULSE 71; RESP 17; TEMP 36.6; O2SAT 98; BMI 46.2
--- NOTE | 2025-02-09 11:28 | ED_ITS ---
HPI - General Adult General Chief complaint: Abdominal Pain Stated complaint: stomach issues Time Seen by Provider: 02/09/25 12:07 History of Present Illness ED Provider: Akin MONK narrative: The patient is a 24-year-old male who has been coming to the emergency room frequently for abdominal complaints. Today's visit is his 9th emergency room visit for a similar symptoms in his calendar year. The patient is on esomeprazole and sucralfate. He also has a ondansetron. He fairly recently had both upper and lower endoscopy with no specific diagnosis made. He uses marijuana daily. Today is the 3rd visit this week for symptoms of nausea, vomiting, diarrhea, and abdominal pain. The patient says he does not feel that bad today. He does not want any IV treatment. However he is frustrated that he continues to have symptoms of nausea answers. He is curious about the possibility of possibly having Crohn's disease. He has had no blood in his stool. The patient expresses doubt as to whether his cannabis use his playing a role in his symptoms. Related Data Previous Rx's ?Medication ?Instructions ?Recorded omeprazole 20 mg capsule,delayed 20 mg PO DAILY #14 caps 04/02/24 release ondansetron 4 mg disintegrating 4 mg PO Q8H PRN nausea and 04/02/24 tablet vomiting #20 tabs ondansetron 4 mg disintegrating 4 mg PO Q6-8H PRN nausea and 05/13/24 tablet vomiting #20 tabs famotidine 10 mg tablet 10 mg PO DAILY 7 days #7 tabs 07/11/24 omeprazole 40 mg capsule,delayed 40 mg PO DAILY 1 week #7 caps 07/11/24 release sucralfate 100 mg/mL oral 5 ml PO QID #414 mL 07/11/24 suspension (Carafate) dicyclomine 10 mg capsule 10 mg PO QID PRN abdominal pain 08/05/24 #14 caps sucralfate 100 mg/mL oral 10 ml PO .before meals #420 mL 08/08/24 suspension (Carafate) metoclopramide HCl 10 mg tablet 10 mg PO Q6H PRN nausea and 09/25/24 (Reglan) vomiting #20 tabs sucralfate 100 mg/mL oral 10 ml PO BID 7 days #140 mL 09/25/24 suspension (Carafate) sucralfate 100 mg/mL oral 10 ml PO BID 4 weeks #560 mL 10/15/24 suspension (Carafate) amoxicillin 500 mg tablet 1,000 mg (2 x 500 mg) PO TID 14 11/04/24 days #84 tabs clarithromycin 500 mg tablet 500 mg PO Q12H 14 days #28 tabs 11/04/24 sucralfate 1 gram tablet 1 g PO TID 14 days #42 tabs 11/04/24 sucralfate 1 gram tablet 1 g PO TID #60 tabs 11/26/24 prochlorperazine maleate 10 mg 10 mg PO Q6H PRN nausea and 02/09/25 tablet vomiting #14 tabs Allergies Allergy/AdvReac Type Severity Reaction Status Date / Time No Known Allergies Allergy Verified 02/09/25 11:29 Review of Systems 2 Review of Systems: Yes all other systems are reviewed and are negative [facility] Past Medical History Medical History No pertinent past medical history Social History Social History Unable to assess alcohol history related to: Unknown Alcohol intake: former Patient Tobacco Use Status: Never used Tobacco Smoked in Last 30 Days: No Use of substances other than those prescribed or required for medical reasons: Yes Substance Use Type: Marijuana Advance Directives: No Advance Directives Information Provided: Yes Do you have a plan to hurt others: No Plan Physical Exam ED Vital Signs: Vital Signs - 24 hr 02/09/25 11:27 Temperature 98 F Pulse Rate 71 Respiratory Rate 17 Blood Pressure 120/76 Pulse Oximetry 98 BMI result Body Mass Index 46.2 Const Other: The patient is awake and alert and does not look acutely ill. Orientation/consciousness: patient oriented x3 HENMT Other: Mucous membranes are moist, face is symmetrical Eyes General: appearance normal, both eyes and all related structures Neck Neck: Yes full ROM Resp Effort & Inspection: normal respiratory effort Auscultation: clear to auscultation bilaterally Cardio Rate: regular rate Rhythm: regular rhythm Heart sounds: S1 normal heart sound present and S2 normal heart sound present GI Other: Abdomen is soft and nontender. Skin Other: Skin is dry and unremarkable Neuro General: patient oriented x3, tone normal, moves all extremities, no focal motor deficits and CN's II-XI intact bilaterally Extrem General: Yes no pedal edema Course Course Course Narrative: RME, this is a rapid medical exam performed by Lawson Knutson please refer to primary provider for complete H&P- 24 year old male presents for evaluation of acute on chronic abdominal pain. He has been dealing with abdominal and GI issues for about one year. He reports a colonoscopy in November at [facility]. This is his 3rd visit in a week for similar complaints. Plan for repeat labs. Will defer any potential imaging to primary ER provider Medical Decision Making Medical Decision Making MDM Narrative: The patient is a 24-year-old male who presents with gastrointestinal complaints of persistent nausea vomiting and diarrhea. He has been here 9 times this year so far with similar complaints. This is his 3rd visit this week. He has already on esomeprazole and sucralfate. He has p.r.n. ondansetron. The patient returns to the emergency room because his symptoms persist despite the medications he is currently using. He does not feel today that he is so ill that he requires IV treatment however. He says that he has primarily looking for answers for his persistent symptoms. I explained to him that I thought that his symptoms are probably the result of his cannabis use. The patient was somewhat dubious. I will prescribe prochlorperazine for the patient. Otherwise he should follow up with his PCP and his stitchdown toe former. He sees a stitchdown toe former LULÚ Alonso. The patient's abdominal exam is extremely benign. His labs are unremarkable. I do not feel he requires additional investigation in the emergency room today. He will be discharged with his new prescription for prochlorperazine and advised to follow up with his regular providers. Additionally he is advised to completely eliminate cannabis use. Lab Data 02/09/25 11:37 02/09/25 11:37 Labs: Lab Results 02/09/25 02/09/25 Range/Units 11:37 11:41 WBC 7.6 (4.8-10.8) X10*3/uL RBC 5.43 (4.60-5.80) X10*6/uL Hgb 15.6 (14.0-18.0) g/dl Hct 44.8 (42.0-52.0) % MCV 82.5 (80.0-98.0) fL MCH 28.7 (27.0-33.0) pg MCHC 34.8 (31.0-36.0) g/dl RDW 11.9 (11.0-16.0) % Plt Count 298 (160-400) X10*3/uL MPV 9.4 (9.4-12.4) fL Immature Gran % (Auto) 0.5 H (0.0-0.4) % Neut % (Auto) 74.1 H (45-73) % Lymph % (Auto) 17.8 L (20-40) % [place] % (Auto) 5.4 (2-11) % Eos % (Auto) 1.8 (0-4) % Baso % (Auto) 0.4 (0-2) % Lymph # (Auto) 1.4 (1.2-4.9) X10*3/uL [place] # (Auto) 0.4 (0.1-1.2) X10*3/uL Eos # (Auto) 0.1 (0.0-0.4) X10*3/uL Baso # (Auto) 0.0 (0.0-0.2) X10*3/uL Abs Immat Gran (auto) 0.04 H (0.00-0.03) X10*3/uL Absolute Neuts (auto) 5.6 (2.0-8.3) x10*3/uL Absolute Nucleated RBC 0.000 (0.0-0.012) X10*3/uL Nucleated RBC % (auto) 0.0 (0.0-0.2) /100WBC Sodium 139 (135-145) mmol/L Potassium 4.1 (3.3-5.1) mmol/L Chloride 108 (96-108) mmol/L Carbon Dioxide 24 (22-29) mmol/L Anion Gap 11 L (12-20) BUN 13 (9-16) mg/dL Creatinine 0.89 (0.5-1.4) mg/dL Estim Creat Clear Calc 211.0 Estimated GFR > 60 Random Glucose 101 (60-115) mg/dL Calcium 9.3 (8.4-10.2) mg/dL Total Bilirubin 0.5 (0.0-1.0) mg/dL Direct Bilirubin 0.2 (0.0-0.5) mg/dL AST 29 (5-37) U/L ALT 52 H (0-40) U/L Alkaline Phosphatase 86 (39-117) U/L C-Reactive Protein 0.43 (< or = 0.50) mg/dL Total Protein 7.2 (6.5-8.0) g/dL Albumin 4.4 (3.5-5.0) g/dL Lipase 17 (8-78) U/L Urine Color Yellow Urine Appearance Clear Urine pH 8.5 (5.0-9.0) Ur Specific [place] 1.015 (1.005-1.025) Urine Protein Negative (Neg-Trace) mg/dL Urine Glucose (UA) Negative (Negative) mg/dL Urine Ketones Negative (Negative) mg/dL Urine Blood Negative (Negative) Urine Nitrite Negative (Negative) Ur Leukocyte Esterase Negative (Negative) Urine RBC 0-2 (0-2) /HPF Urine WBC 0-5 (0-5) /HPF Ur Squamous Epith Cells 0-2 (0-2) /HPF Urine Bacteria None Seen (None Seen) Hyaline Casts 0-2 (0-2) /LPF Discharge Plan Discharge Clinical Impression: Abdominal pain with vomiting Patient Disposition: Home, Self-Care Additional Instructions: Your testing in the emergency room today is very reassuring. I have sent a prescription for a medication called prochlorperazine (also known as Compazine) which you may use on an as-needed basis for nausea. Perhaps this will work better than ondansetron. Since your testing over many emergency room visits has been unremarkable I would strongly recommend that you stop using cannabis altogether in case the cannabis is playing a role in your symptoms. Follow up with your primary care doctor and your stitchdown toe former. Return to the emergency room if significantly worse. Prescriptions: New prochlorperazine maleate 10 mg tablet 10 mg PO Q6H PRN (Reason: nausea and vomiting) Qty: 14 0RF No Action ondansetron 4 mg tablet,disintegrating 4 mg PO Q6-8H PRN (Reason: nausea and vomiting) Qty: 20 0RF omeprazole 40 mg capsule,delayed release(DR/EC) 40 mg PO DAILY 7 Days Qty: 7 0RF famotidine 10 mg tablet 10 mg PO DAILY 7 Days Qty: 7 0RF sucralfate [Carafate] 100 mg/mL suspension 5 ml PO QID Qty: 414 0RF Rx Instructions: swish in mouth and swallow; use after food/drink sucralfate 1 gram tablet 1 g PO TID Qty: 60 0RF ondansetron 4 mg tablet,disintegrating 4 mg PO Q8H PRN (Reason: nausea and vomiting) Qty: 20 0RF omeprazole 20 mg capsule,delayed release(DR/EC) 20 mg PO DAILY Qty: 14 0RF dicyclomine 10 mg capsule 10 mg PO QID PRN (Reason: abdominal pain) Qty: 14 0RF sucralfate [Carafate] 100 mg/mL suspension 10 ml PO .before meals Qty: 420 0RF sucralfate [Carafate] 100 mg/mL suspension 10 ml PO BID 7 Days Qty: 140 0RF metoclopramide HCl [Reglan] 10 mg tablet 10 mg PO Q6H PRN (Reason: nausea and vomiting) Qty: 20 0RF sucralfate [Carafate] 100 mg/mL suspension 10 ml PO BID 28 Days Qty: 560 0RF Rx Instructions: before meals clarithromycin 500 mg tablet 500 mg PO Q12H 14 Days Qty: 28 0RF amoxicillin 500 mg tablet 1,000 mg PO TID 14 Days Qty: 84 0RF sucralfate 1 gram tablet 1 g PO TID 14 Days Qty: 42 0RF Referrals: Radha Walker [employer] [Primary Care Provider] - (Recurrent ER visits for GI symptoms) Print Language: [place] Citizen
[2025-02-09 11:41] LABS: MANUAL DIFF FLAG NO
[2025-02-09 11:43] LABS: Basophils Percent Auto 0.4 % (0-2); Eosinophils Absolute Auto 0.1 X10*3/uL (0.0-0.4); Eosinophils Percent Auto 1.8 % (0-4); Hematocrit 44.8 % (42.0-52.0); Hemoglobin 15.6 g/dl (14.0-18.0); Imm Gran Abs Auto 0.04 X10*3/uL (0.00-0.03); Imm Gran Pct Auto 0.5 % (0.0-0.4); Lymphocytes Absolute Auto 1.4 X10*3/uL (1.2-4.9); Lymphocytes Percent Auto 17.8 % (20-40); Mean Corpuscular HGB Conc 34.8 g/dl (31.0-36.0); Mean Corpuscular Hemoglobin 28.7 pg (27.0-33.0); Mean Corpuscular Volume 82.5 fL (80.0-98.0); Mean Platelet Volume 9.4 fL (9.4-12.4); Monocytes Absolute Auto 0.4 X10*3/uL (0.1-1.2); Monocytes Percent Auto 5.4 % (2-11); Neutrophils Absolute Auto 5.6 x10*3/uL (2.0-8.3); Neutrophils Percent Auto 74.1 % (45-73); Platelet Count 298 X10*3/uL (160-400); Red Blood Count 5.43 X10*6/uL (4.60-5.80); Red Cell Distribution Width 11.9 % (11.0-16.0); White Blood Count 7.6 X10*3/uL (4.8-10.8)
[2025-02-09 11:48] LABS: Appearance Urine Clear; Color Urine Yellow; Glucose Urine UA Negative (Negative); Leukocyte Esterase Urine Negative (Negative); Nitrite Urine Negative (Negative); PH 8.5 (5.0-9.0); Specific Gravity - Urine 1.015 (1.005-1.025); Urine Blood Negative (Negative); Urine Ketones Negative (Negative); Urine Protein Negative (Neg-Trace)
[2025-02-09 11:50] LABS: Bacteria Urine None Seen (None Seen); Hyaline Casts Urine 0-2 /LPF (0-2); RBC Urine 0-2 /HPF (0-2); Squamous Epithelial Cell Urine 0-2 /HPF (0-2); WBC Urine 0-5 /HPF (0-5)
[2025-02-09 11:57] LABS: Alanine Aminotransferase 52 U/L (0-40); Albumin Level 4.4 g/dL (3.5-5.0); Alkaline Phosphatase 86 U/L (39-117); Anion Gap 11 (12-20); Aspartate Amino Transferase 29 U/L (5-37); Bilirubin Direct 0.2 mg/dL (0.0-0.5); Bilirubin Total 0.5 mg/dL (0.0-1.0); Blood Urea Nitrogen 13 mg/dL (9-16); C Reactive Protein 0.43 mg/dL (< or = 0.50); Calcium 9.3 mg/dL (8.4-10.2); Carbon Dioxide 24 mmol/L (22-29); Chloride 108 mmol/L (96-108); Estimated Glomerular Filt Rate > 60; Glucose Random 101 mg/dL (60-115); Lipase 17 U/L (8-78); Potassium 4.1 mmol/L (3.3-5.1); Sodium 139 mmol/L (135-145); Total Protein 7.2 g/dL (6.5-8.0)
--- NOTE | 2025-02-09 12:09 | PC.NURSE ---
patient a&ox3, labs drawn in triage, pt c/o continued abd pain with nausea/vomiting 4/10 pain, additionally pt states he does smoke marijuana daily. vss, call everett within reach, pt awaiting provider
[2025-02-09 12:29] LABS: Erythrocyte Sedimentation Rate 8 MM/HR (0-15)
[2025-02-09] MEDS: Lidocaine HCl Viscous 2 % 15 ML SOLUTION MUCOUS MEM (13:13)
[2025-02-09] MEDS: PHENobarb/Hyoscy/Atropine/Scop 10 ML ELIXIR PO (13:13)
[2025-02-09] MEDS: Sucralfate Oral Suspension 1 GM/10 ML ORAL.SUSP PO (13:14)
[2025-02-09] MEDS: Magnesium Hydrox/Alum Hydrox 30 ML ORAL.SUSP PO (13:14)
[2025-02-09 13:19] VITALS: BP 118/78; PULSE 73; RESP 16; TEMP 36.6; O2SAT 98
== END 2025-02-09 13:20 | disposition home or self-care (01) ==
PROVIDERS: Physician Assistant; Emergency Provider Emergency Medicine; PCP Nurse Practitioner
DX: R10.9 Unspecified abdominal pain (principal); R11.2 Nausea with vomiting, unspecified; F12.90 Cannabis use, unspecified, uncomplicated; E66.9 Obesity, unspecified; Z68.42 Body mass index [BMI] 45.0-49.9, adult; Z79.899 Other long term (current) drug therapy
CPT/HCPCS: 36415; 80048; 80076; 81001; 83690; 85025; 85652; 86140; 99284

== ENCOUNTER 2025-02-24 12:43 | Emergency (ER) | payer OTHER, SELFPAY ==
[2025-02-24 13:50] VITALS: BP 136/83; PULSE 60; RESP 18; TEMP 36.5; O2SAT 96; BMI 46.2
--- NOTE | 2025-02-24 13:52 | ED.GENADULT ---
HPI - General Adult General Chief complaint: Abdominal Pain Stated complaint: Abd pain History of Present Illness HPI narrative: Left before complete of treatment by ED provider. Related Data Previous Rx's ?Medication ?Instructions ?Recorded omeprazole 20 mg capsule,delayed 20 mg PO DAILY #14 caps 04/02/24 release ondansetron 4 mg disintegrating 4 mg PO Q8H PRN nausea and 04/02/24 tablet vomiting #20 tabs ondansetron 4 mg disintegrating 4 mg PO Q6-8H PRN nausea and 05/13/24 tablet vomiting #20 tabs famotidine 10 mg tablet 10 mg PO DAILY 7 days #7 tabs 07/11/24 omeprazole 40 mg capsule,delayed 40 mg PO DAILY 1 week #7 caps 07/11/24 release sucralfate 100 mg/mL oral 5 ml PO QID #414 mL 07/11/24 suspension (Carafate) dicyclomine 10 mg capsule 10 mg PO QID PRN abdominal pain 08/05/24 #14 caps sucralfate 100 mg/mL oral 10 ml PO .before meals #420 mL 08/08/24 suspension (Carafate) metoclopramide HCl 10 mg tablet 10 mg PO Q6H PRN nausea and 09/25/24 (Reglan) vomiting #20 tabs sucralfate 100 mg/mL oral 10 ml PO BID 7 days #140 mL 09/25/24 suspension (Carafate) sucralfate 100 mg/mL oral 10 ml PO BID 4 weeks #560 mL 10/15/24 suspension (Carafate) amoxicillin 500 mg tablet 1,000 mg (2 x 500 mg) PO TID 14 11/04/24 days #84 tabs clarithromycin 500 mg tablet 500 mg PO Q12H 14 days #28 tabs 11/04/24 sucralfate 1 gram tablet 1 g PO TID 14 days #42 tabs 11/04/24 sucralfate 1 gram tablet 1 g PO TID #60 tabs 11/26/24 prochlorperazine maleate 10 mg 10 mg PO Q6H PRN nausea and 02/09/25 tablet vomiting #14 tabs Allergies Allergy/AdvReac Type Severity Reaction Status Date / Time No Known Allergies Allergy Verified 02/24/25 13:52 [facility] Past Medical History Medical History No pertinent past medical history Social History Social History Unable to assess alcohol history related to: Unknown Alcohol intake: former Patient Tobacco Use Status: Never used Tobacco Substance Use Type: Marijuana Advance Directives: No Advance Directives Information Provided: No Physical Exam ED Vital Signs: Vital Signs - 24 hr 02/24/25 13:50 Temperature 97.7 F Pulse Rate 60 Respiratory Rate 18 Blood Pressure 136/83 Pulse Oximetry 96 Oxygen Delivery Method Room Air BMI result Body Mass Index 46.2 Course Course Course Narrative: RME: 22-year-old male presents to the ED for abdominal pain for 1 year with nausea. Patient has had normal colonoscopy and endoscopic be. Patient denies any blood in stool or hematuria. Labs ordered. Discharge Plan Discharge Clinical Impression: Abdominal pain Patient Disposition: Left W/O Completing Treatment Prescriptions: No Action ondansetron 4 mg tablet,disintegrating 4 mg PO Q6-8H PRN (Reason: nausea and vomiting) Qty: 20 0RF omeprazole 40 mg capsule,delayed release(DR/EC) 40 mg PO DAILY 7 Days Qty: 7 0RF famotidine 10 mg tablet 10 mg PO DAILY 7 Days Qty: 7 0RF sucralfate [Carafate] 100 mg/mL suspension 5 ml PO QID Qty: 414 0RF Rx Instructions: swish in mouth and swallow; use after food/drink sucralfate 1 gram tablet 1 g PO TID Qty: 60 0RF prochlorperazine maleate 10 mg tablet 10 mg PO Q6H PRN (Reason: nausea and vomiting) Qty: 14 0RF ondansetron 4 mg tablet,disintegrating 4 mg PO Q8H PRN (Reason: nausea and vomiting) Qty: 20 0RF omeprazole 20 mg capsule,delayed release(DR/EC) 20 mg PO DAILY Qty: 14 0RF dicyclomine 10 mg capsule 10 mg PO QID PRN (Reason: abdominal pain) Qty: 14 0RF sucralfate [Carafate] 100 mg/mL suspension 10 ml PO .before meals Qty: 420 0RF sucralfate [Carafate] 100 mg/mL suspension 10 ml PO BID 7 Days Qty: 140 0RF metoclopramide HCl [Reglan] 10 mg tablet 10 mg PO Q6H PRN (Reason: nausea and vomiting) Qty: 20 0RF sucralfate [Carafate] 100 mg/mL suspension 10 ml PO BID 28 Days Qty: 560 0RF Rx Instructions: before meals clarithromycin 500 mg tablet 500 mg PO Q12H 14 Days Qty: 28 0RF amoxicillin 500 mg tablet 1,000 mg PO TID 14 Days Qty: 84 0RF sucralfate 1 gram tablet 1 g PO TID 14 Days Qty: 42 0RF Discharge Date/Time: 02/24/25 19:16
--- NOTE | 2025-02-24 14:44 | MHC.EDTECH ---
CAlled for Labs in waiting room Na x1 Rn/Md notified.
--- NOTE | 2025-02-24 15:12 | MHC.EDTECH ---
second attempt call for labs, no response from the waiting room. 1515
--- NOTE | 2025-02-24 19:07 | PC.NURSE ---
NO ANSWER WHEN CALLED FROM AT 1900
== END 2025-02-24 19:16 | disposition left against medical advice (07) ==
LOC: HO.ED 19:14
PROVIDERS: Emergency Provider Emergency Medicine; PCP Nurse Practitioner
DX: R10.2 Pelvic and perineal pain (principal)
CPT/HCPCS: 99281

== ENCOUNTER 2025-02-25 11:52 | Emergency (ER) | payer OTHER, SELFPAY ==
[2025-02-25 12:11] VITALS: BP 126/70; PULSE 76; RESP 18; TEMP 36.1; O2SAT 97; BMI 46.7
--- NOTE | 2025-02-25 12:20 | ED_ITS ---
HPI - General Adult General Chief complaint: Abdominal Pain Stated complaint: stomach pain , vomiting Related Data Previous Rx's ?Medication ?Instructions ?Recorded omeprazole 20 mg capsule,delayed 20 mg PO DAILY #14 caps 04/02/24 release ondansetron 4 mg disintegrating 4 mg PO Q8H PRN nausea and 04/02/24 tablet vomiting #20 tabs ondansetron 4 mg disintegrating 4 mg PO Q6-8H PRN nausea and 05/13/24 tablet vomiting #20 tabs famotidine 10 mg tablet 10 mg PO DAILY 7 days #7 tabs 07/11/24 omeprazole 40 mg capsule,delayed 40 mg PO DAILY 1 week #7 caps 07/11/24 release sucralfate 100 mg/mL oral 5 ml PO QID #414 mL 07/11/24 suspension (Carafate) dicyclomine 10 mg capsule 10 mg PO QID PRN abdominal pain 08/05/24 #14 caps sucralfate 100 mg/mL oral 10 ml PO .before meals #420 mL 08/08/24 suspension (Carafate) metoclopramide HCl 10 mg tablet 10 mg PO Q6H PRN nausea and 09/25/24 (Reglan) vomiting #20 tabs sucralfate 100 mg/mL oral 10 ml PO BID 7 days #140 mL 09/25/24 suspension (Carafate) sucralfate 100 mg/mL oral 10 ml PO BID 4 weeks #560 mL 10/15/24 suspension (Carafate) amoxicillin 500 mg tablet 1,000 mg (2 x 500 mg) PO TID 14 11/04/24 days #84 tabs clarithromycin 500 mg tablet 500 mg PO Q12H 14 days #28 tabs 11/04/24 sucralfate 1 gram tablet 1 g PO TID 14 days #42 tabs 11/04/24 sucralfate 1 gram tablet 1 g PO TID #60 tabs 11/26/24 prochlorperazine maleate 10 mg 10 mg PO Q6H PRN nausea and 02/09/25 tablet vomiting #14 tabs Allergies Allergy/AdvReac Type Severity Reaction Status Date / Time No Known Allergies Allergy Verified 02/26/25 11:39 COUNTS INCLUDE 234 BEDS AT THE [facility] Past Medical History Medical History No pertinent past medical history Social History Social History Unable to assess alcohol history related to: Unknown Alcohol intake: former Patient Tobacco Use Status: Never used Tobacco Substance Use Type: Marijuana Advance Directives: No Advance Directives Information Provided: Yes Physical Exam ED Vital Signs: Vital Signs - 24 hr 02/25/25 12:11 Temperature 97.0 F Pulse Rate 76 Respiratory Rate 18 Blood Pressure 126/70 Pulse Oximetry 97 Oxygen Delivery Method Room Air BMI result Body Mass Index 46.7 Course Course Course Narrative: RME: 24-year-old male presents to ED for abdominal pain wrap and chronic for over a year. Patient had in his copy that was normal. Patient came to the ED yesterday but left before evaluation. Labs UA ordered. Medical Decision Making Lab Data 02/25/25 12:22 02/25/25 12:22 Labs: Lab Results 02/25/25 Range/Units 12:22 WBC 7.2 (4.8-10.8) X10*3/uL RBC 5.24 (4.60-5.80) X10*6/uL Hgb 15.1 (14.0-18.0) g/dl Hct 44.0 (42.0-52.0) % MCV 84.0 (80.0-98.0) fL MCH 28.8 (27.0-33.0) pg MCHC 34.3 (31.0-36.0) g/dl RDW 11.9 (11.0-16.0) % Plt Count 284 (160-400) X10*3/uL MPV 9.5 (9.4-12.4) fL Immature Gran % (Auto) 0.6 H (0.0-0.4) % Neut % (Auto) 71.1 (45-73) % Lymph % (Auto) 19.3 L (20-40) % [place] % (Auto) 6.5 (2-11) % Eos % (Auto) 2.2 (0-4) % Baso % (Auto) 0.3 (0-2) % Lymph # (Auto) 1.4 (1.2-4.9) X10*3/uL [place] # (Auto) 0.5 (0.1-1.2) X10*3/uL Eos # (Auto) 0.2 (0.0-0.4) X10*3/uL Baso # (Auto) 0.0 (0.0-0.2) X10*3/uL Abs Immat Gran (auto) 0.04 H (0.00-0.03) X10*3/uL Absolute Neuts (auto) 5.1 (2.0-8.3) x10*3/uL Absolute Nucleated RBC 0.000 (0.0-0.012) X10*3/uL Nucleated RBC % (auto) 0.0 (0.0-0.2) /100WBC Sodium 138 (135-145) mmol/L Potassium 4.2 (3.3-5.1) mmol/L Chloride 107 (96-108) mmol/L Carbon Dioxide 26 (22-29) mmol/L Anion Gap 9 L (12-20) BUN 13 (9-16) mg/dL Creatinine 0.97 (0.5-1.4) mg/dL Estim Creat Clear Calc 194.8 Estimated GFR > 60 Random Glucose 102 (60-115) mg/dL Calcium 9.2 (8.4-10.2) mg/dL Total Bilirubin 0.3 (0.0-1.0) mg/dL AST 27 (5-37) U/L ALT 53 H (0-40) U/L Alkaline Phosphatase 78 (39-117) U/L Total Protein 6.6 (6.5-8.0) g/dL Albumin 4.3 (3.5-5.0) g/dL Lipase 17 (8-78) U/L Discharge Plan Discharge Clinical Impression: Abdominal pain Patient Disposition: Left W/O Completing Treatment Prescriptions: No Action ondansetron 4 mg tablet,disintegrating 4 mg PO Q6-8H PRN (Reason: nausea and vomiting) Qty: 20 0RF omeprazole 40 mg capsule,delayed release(DR/EC) 40 mg PO DAILY 7 Days Qty: 7 0RF famotidine 10 mg tablet 10 mg PO DAILY 7 Days Qty: 7 0RF sucralfate [Carafate] 100 mg/mL suspension 5 ml PO QID Qty: 414 0RF Rx Instructions: swish in mouth and swallow; use after food/drink sucralfate 1 gram tablet 1 g PO TID Qty: 60 0RF prochlorperazine maleate 10 mg tablet 10 mg PO Q6H PRN (Reason: nausea and vomiting) Qty: 14 0RF ondansetron 4 mg tablet,disintegrating 4 mg PO Q8H PRN (Reason: nausea and vomiting) Qty: 20 0RF omeprazole 20 mg capsule,delayed release(DR/EC) 20 mg PO DAILY Qty: 14 0RF dicyclomine 10 mg capsule 10 mg PO QID PRN (Reason: abdominal pain) Qty: 14 0RF sucralfate [Carafate] 100 mg/mL suspension 10 ml PO .before meals Qty: 420 0RF sucralfate [Carafate] 100 mg/mL suspension 10 ml PO BID 7 Days Qty: 140 0RF metoclopramide HCl [Reglan] 10 mg tablet 10 mg PO Q6H PRN (Reason: nausea and vomiting) Qty: 20 0RF sucralfate [Carafate] 100 mg/mL suspension 10 ml PO BID 28 Days Qty: 560 0RF Rx Instructions: before meals clarithromycin 500 mg tablet 500 mg PO Q12H 14 Days Qty: 28 0RF amoxicillin 500 mg tablet 1,000 mg PO TID 14 Days Qty: 84 0RF sucralfate 1 gram tablet 1 g PO TID 14 Days Qty: 42 0RF Discharge Date/Time: 02/25/25 20:44
[2025-02-25 12:25] LABS: MANUAL DIFF FLAG NO
[2025-02-25 12:27] LABS: Basophils Percent Auto 0.3 % (0-2); Eosinophils Absolute Auto 0.2 X10*3/uL (0.0-0.4); Eosinophils Percent Auto 2.2 % (0-4); Hemoglobin 15.1 g/dl (14.0-18.0); Imm Gran Abs Auto 0.04 X10*3/uL (0.00-0.03); Imm Gran Pct Auto 0.6 % (0.0-0.4); Lymphocytes Absolute Auto 1.4 X10*3/uL (1.2-4.9); Lymphocytes Percent Auto 19.3 % (20-40); Mean Corpuscular HGB Conc 34.3 g/dl (31.0-36.0); Mean Corpuscular Hemoglobin 28.8 pg (27.0-33.0); Mean Platelet Volume 9.5 fL (9.4-12.4); Monocytes Absolute Auto 0.5 X10*3/uL (0.1-1.2); Monocytes Percent Auto 6.5 % (2-11); Neutrophils Absolute Auto 5.1 x10*3/uL (2.0-8.3); Neutrophils Percent Auto 71.1 % (45-73); Platelet Count 284 X10*3/uL (160-400); Red Blood Count 5.24 X10*6/uL (4.60-5.80); Red Cell Distribution Width 11.9 % (11.0-16.0); White Blood Count 7.2 X10*3/uL (4.8-10.8)
[2025-02-25 12:40] LABS: Alanine Aminotransferase 53 U/L (0-40); Albumin Level 4.3 g/dL (3.5-5.0); Alkaline Phosphatase 78 U/L (39-117); Anion Gap 9 (12-20); Aspartate Amino Transferase 27 U/L (5-37); Bilirubin Total 0.3 mg/dL (0.0-1.0); Blood Urea Nitrogen 13 mg/dL (9-16); Calcium 9.2 mg/dL (8.4-10.2); Carbon Dioxide 26 mmol/L (22-29); Chloride 107 mmol/L (96-108); Creatinine Clr Calc Pharmacy 194.8; Estimated Glomerular Filt Rate > 60; Glucose Random 102 mg/dL (60-115); Lipase 17 U/L (8-78); Potassium 4.2 mmol/L (3.3-5.1); Sodium 138 mmol/L (135-145); Total Protein 6.6 g/dL (6.5-8.0)
--- NOTE | 2025-02-25 18:43 | PC.NURSE ---
pt wanted to discharge, provider in [facility] wanted the patient to be seen for imaging as pt lwt the day before. Pt requested a work note and was upset he couldnt leave without completing treatment without getting a work note, pt has left the WR>
== END 2025-02-25 20:44 | disposition left against medical advice (07) ==
PROVIDERS: Emergency Provider Emergency Medicine; PCP Nurse Practitioner
DX: R10.9 Unspecified abdominal pain (principal)
CPT/HCPCS: 36415; 80053; 83690; 85025; 99281; 99283; 99284

== ENCOUNTER 2025-02-26 11:26 | Emergency (ER) | payer OTHER, SELFPAY ==
[2025-02-26 11:37] VITALS: BP 127/79; PULSE 78; RESP 18; TEMP 36.2; O2SAT 96; BMI 46.3
--- NOTE | 2025-02-26 11:39 | ED.GENADULT ---
HPI - General Adult General Chief complaint: Medical Clearance Stated complaint: clearence to return to work Time Seen by Provider: 02/26/25 11:37 Source: patient, RN notes reviewed and old records reviewed Mode of arrival: ambulatory Limitations: no limitations History of Present Illness ED Provider: Zenia MONK narrative: 24-year-old male presents for evaluation of medical clearance to return to work. He was here the last 2 days for abdominal pain. He had labs drawn left without being seen due to wait time. He reports his pain has resolved in he needs a note to return to work today. He follows with GI, he had a recent colonoscopy and endoscopy that did not show any clear diagnosis. Related Data Previous Rx's ?Medication ?Instructions ?Recorded omeprazole 20 mg capsule,delayed 20 mg PO DAILY #14 caps 04/02/24 release ondansetron 4 mg disintegrating 4 mg PO Q8H PRN nausea and 04/02/24 tablet vomiting #20 tabs ondansetron 4 mg disintegrating 4 mg PO Q6-8H PRN nausea and 05/13/24 tablet vomiting #20 tabs famotidine 10 mg tablet 10 mg PO DAILY 7 days #7 tabs 07/11/24 omeprazole 40 mg capsule,delayed 40 mg PO DAILY 1 week #7 caps 07/11/24 release sucralfate 100 mg/mL oral 5 ml PO QID #414 mL 07/11/24 suspension (Carafate) dicyclomine 10 mg capsule 10 mg PO QID PRN abdominal pain 08/05/24 #14 caps sucralfate 100 mg/mL oral 10 ml PO .before meals #420 mL 08/08/24 suspension (Carafate) metoclopramide HCl 10 mg tablet 10 mg PO Q6H PRN nausea and 09/25/24 (Reglan) vomiting #20 tabs sucralfate 100 mg/mL oral 10 ml PO BID 7 days #140 mL 09/25/24 suspension (Carafate) sucralfate 100 mg/mL oral 10 ml PO BID 4 weeks #560 mL 10/15/24 suspension (Carafate) amoxicillin 500 mg tablet 1,000 mg (2 x 500 mg) PO TID 14 11/04/24 days #84 tabs clarithromycin 500 mg tablet 500 mg PO Q12H 14 days #28 tabs 11/04/24 sucralfate 1 gram tablet 1 g PO TID 14 days #42 tabs 11/04/24 sucralfate 1 gram tablet 1 g PO TID #60 tabs 11/26/24 prochlorperazine maleate 10 mg 10 mg PO Q6H PRN nausea and 02/09/25 tablet vomiting #14 tabs Allergies Allergy/AdvReac Type Severity Reaction Status Date / Time No Known Allergies Allergy Verified 02/26/25 11:39 Review of Systems Constitutional: Constitutional: Denies body ache(s), Denies chills and Denies fever(s) ENT: Denies vertigo and Denies dizziness Cardiovascular: Cardiovascular: Denies chest pain and Denies dyspnea Respiratory: Respiratory: Denies cough and Denies dyspnea Gastrointestinal: Gastrointestinal: Reports abdominal pain, Denies nausea and Denies vomiting Musculoskeletal: Musculoskeletal: Denies back pain Neurologic: Denies vertigo and Denies dizziness PMFSH Past Medical History Medical History No pertinent past medical history Social History Social History Unable to assess alcohol history related to: Unknown Alcohol intake: former Patient Tobacco Use Status: Never used Tobacco Substance Use Type: Marijuana Advance Directives: No Advance Directives Information Provided: Yes Physical Exam ED Vital Signs: Vital Signs - 24 hr 02/26/25 11:37 02/26/25 11:44 Temperature 97.2 F 97.2 F Pulse Rate 78 78 Respiratory Rate 18 18 Blood Pressure 127/79 127/79 Pulse Oximetry 96 96 Oxygen Delivery Method Room Air Room Air BMI result Body Mass Index 46.3 Const General: healthy appearing, comfortable, no acute distress, alert and awake Nutritional Appearance: well nourished Orientation/consciousness: patient oriented x3 HENMT Head: Yes normocephalic and Yes atraumatic Eyes Eyelids: Yes eyelids normal Conjunctivae: conjunctivae normal Sclerae: sclerae normal Corneas: corneas normal EOM: EOMs intact bilaterally Neck Neck: Yes full ROM Resp Effort & Inspection: normal respiratory effort, able to speak in complete sentences and not labored GI Inspection: No distended Palpation (GI): Soft to palpation, not firm, nontender, no guarding and not rigid Neuro General: patient oriented x3 Extrem Other: Moving all extremities well without any obvious deformities Medical Decision Making Medical Decision Making MDM Narrative: 24-year-old male presents for evaluation of ?I need a note to return to work. ? He does have chronic abdominal pain and follows with GI. I reviewed his labs from yesterday that did not show any acute abnormalities. He had no leukocytosis, he had a very slight increase in his ALT, however decreased from previous labs. I do not see any indication for emergent imaging or repeat labs at this time. The patient will cleared to return to work today Differential Diagnosis Differential Diagnoses: The differential diagnosis associated with the presentation includes Abdominal pain Chronic abdominal pain GERD Peptic ulcer disease Crohn's disease IBS Discharge Plan Discharge Clinical Impression: Abdominal pain Patient Disposition: Home, Self-Care Instructions: Abdominal Pain (ED) Additional Instructions: Your blood work for the last couple of days was reassuring. Follow-up with your GI doctor for any further abdominal pain Return for new or worsening symptoms Prescriptions: No Action ondansetron 4 mg tablet,disintegrating 4 mg PO Q6-8H PRN (Reason: nausea and vomiting) Qty: 20 0RF omeprazole 40 mg capsule,delayed release(DR/EC) 40 mg PO DAILY 7 Days Qty: 7 0RF famotidine 10 mg tablet 10 mg PO DAILY 7 Days Qty: 7 0RF sucralfate [Carafate] 100 mg/mL suspension 5 ml PO QID Qty: 414 0RF Rx Instructions: swish in mouth and swallow; use after food/drink sucralfate 1 gram tablet 1 g PO TID Qty: 60 0RF prochlorperazine maleate 10 mg tablet 10 mg PO Q6H PRN (Reason: nausea and vomiting) Qty: 14 0RF ondansetron 4 mg tablet,disintegrating 4 mg PO Q8H PRN (Reason: nausea and vomiting) Qty: 20 0RF omeprazole 20 mg capsule,delayed release(DR/EC) 20 mg PO DAILY Qty: 14 0RF dicyclomine 10 mg capsule 10 mg PO QID PRN (Reason: abdominal pain) Qty: 14 0RF sucralfate [Carafate] 100 mg/mL suspension 10 ml PO .before meals Qty: 420 0RF sucralfate [Carafate] 100 mg/mL suspension 10 ml PO BID 7 Days Qty: 140 0RF metoclopramide HCl [Reglan] 10 mg tablet 10 mg PO Q6H PRN (Reason: nausea and vomiting) Qty: 20 0RF sucralfate [Carafate] 100 mg/mL suspension 10 ml PO BID 28 Days Qty: 560 0RF Rx Instructions: before meals clarithromycin 500 mg tablet 500 mg PO Q12H 14 Days Qty: 28 0RF amoxicillin 500 mg tablet 1,000 mg PO TID 14 Days Qty: 84 0RF sucralfate 1 gram tablet 1 g PO TID 14 Days Qty: 42 0RF Stand Alone Forms: Work/School Release Interventions: ED Discharge Assessment Last Done: 02/26/25 11:44 Print Language: Greenlandic
[2025-02-26 11:44] VITALS: BP 127/79; PULSE 78; RESP 18; TEMP 36.2; O2SAT 96
--- OUTSIDE RECORDS SUMMARY | 2025-02-26 13:54 | XMS_ITS | Data Portability ---
Author Organization [facility] [id number] Address [address] [place] [address] Assessment No assessment recorded. Plan of Treatment Reminders Order Date Submit Date Provider Last Modified By Organization Details Last Modified Time Details Appointments None recorded. Lab None recorded. Referral None recorded. Procedures None recorded. Surgeries None recorded. Imaging XR, foot, 3 or more view 2022 023 [facility], [address] [place], [address], 3 15:59:16 XR, ankle, 3 or more view 2022 023 [facility], [address] [place], [address], 3 15:56:20 Medication Orders ibuprofen 600 mg tablet 2022 023 [facility] #[id number], [address] [place], [address], 15:39:36 Patient TargetsNo targets recorded. Patient Instructions Encounter Date Encounter Id Patient Instructions Last Modified By Organization Details Last Modified Time 03/29/2023 [id number] learning about rice (rest, ice, compression, and [...] if you have any questions or concerns. [email or web address] Not available 03/29/2023 15:04:57 Reason for Referral None Reported. Results Created Date Observation Date Name Description Value Unit Range Abnormal Flag Note LastModifiedBy Organization Detail LastModifiedTime 03/29/2003/29/2023 XR, ankle , 3 or more view No observ ation record ed. [email or web address] [facility] [address] [place], [address], 03/30/2023 13:42:24 03/29/2003/29/2023 XR, foot, 3 or more view No observ ation record ed. [email or web address] [facility] [address] [place], [address], 03/30/2023 13:42:25 Result Notes None recorded. Problems No Known Problems Medical Equipment None Reported. Allergies No known drug allergies Medications Name Sig Start Date Stop Date Status Note LastModified by Organization Details LastModified Time ibuprofen 600 mg tablet Take 1 tablet 3 times a day by oral route for 10 days. 023 active Not Available Not Available Not Avai lable Vitals Date Recorded Body height Body mass index (BMI) [Percentile] Per age and sex Body mass index (BMI) Body weight Respiratory rate Oxygen saturation Oxygen saturation in Arterial blood by Pulse oximetry Heart rate Body temperature Systolic blood pressure Diastolic blood pressure Provider Name and Address Organization Details Last Updated DateTime 3 187.96 cm 99 % 46.9 kg/m2 882143. 22 g 20 /min 99 % 99 % 67 /min 98.2 [degF] 129 mm[Hg] 93 mm[Hg] Magdalena Head PA - [facility] 14:17:08 Social History Question Answer Notes LastModified by Organizat ion Details LastModified Time Tobacco Smoking Status Never Smoker Magdalena bryant PA - [facility] 03/29/2023 14:15:35 Which Illicit Or Recreational Drugs Have You Used? Marijuana Information not available 03/29/2023 Have You Had Direct Contact, Or Contact During Intimacy, With Monkeypox Rash, Scabs, Or Body Fluids From A Person With Monkeypox? No Information not available 03/29/2023 Have You Recently Traveled Abroad? No Information not available 03/29/2023 Sex: Unknown Functional Status Question Answer Note LastModified by Organizat ion Details LastModified Time Do you use any [...] SNOMED-CT Code Diagnosis ICD10 Code Diagnosis Note [id number] [facility] [address] [address] 07/26/2022 09:40:15 07/26/2022 12:38:11 [id number] [facility] [address] [address] 03/29/2023 13:29:23 03/29/2023 15:44:03 Sprain of right ankle [id number] S93.401A Health Concerns Section Related Observation LastModified by Organization Detai ls LastModified Time None Recorded Concern Status LastModified by Organization Details LastModified Time None Recorded Advance Directives Directive None Recorded Payers Insurance Date Sequence Insurance Name Policy Number Policy Sanders Covered Member ID Sanders Member ID Guarantor Name 03/29/2023 1 [employer] - [employer] (MEDICAID HMO) [id number] Mahesh Lepe [id number] Mahesh Lepe 03/29/2023 1 [facility] (MEDICAID HMO) [id number] Mahesh Lepe [id number] Mahesh Lepe 03/29/2023 1 [place] Mahesh Lepe [id number] Mahesh Lepe 03/29/2023 1 [facility] [id number] Mahesh Lepe [id number] Mahesh Lepe Notes Date Note Type Note Provider Name and Address Organization Details Recorded Time 03/29/2023 text/html Foot/Ankle UCReported bypatient.Notes:[age] y.o male pt presents with right ankle pain with swelling 2/2 rolling it while coming down the stairs. Pain is located along lateral malleolus and on dorsal aspect of foot. Pt is ambulating with mild limp LULÚ SALAS [address] [place], [id number], PA - [facility] 03/29/2023 16:10:37
== END 2025-02-26 11:57 | disposition home or self-care (01) ==
PROVIDERS: Emergency Provider Emergency Medicine Emergency Medical Services; PCP Nurse Practitioner
DX: R10.2 Pelvic and perineal pain (principal)
CPT/HCPCS: 99282

== ENCOUNTER 2025-05-08 23:09 | Emergency (ER) | payer OTHER, SELFPAY ==
[2025-05-08 23:30] VITALS: BP 147/74; PULSE 75; RESP 18; TEMP 36.3; O2SAT 98; BMI 48.2
--- NOTE | 2025-05-09 02:30 | ED.EYEPROB ---
HPI - Eye Problem General Chief complaint: Eye Problems Stated complaint: Eye Problems Time Seen by Provider: 05/09/25 01:56 Source: patient Mode of arrival: ambulatory Limitations: no limitations History of Present Illness ED Provider: Dr. Gisela Urban HPI Narrative: Patient comes to the emergency room complaining of 1 week of worsening left eye erythema, discharge and tearing. Patient states that initially it started a last a stye, then it went away, but then throughout the week the redness and discharged has gotten worse. Patient states that he wakes up with a very sticky eye and is to wipe it to open his eye. Patient denies any trauma. Related Data Previous Rx's ?Medication ?Instructions ?Recorded omeprazole 20 mg capsule,delayed 20 mg PO DAILY #14 caps 04/02/24 release ondansetron 4 mg disintegrating 4 mg PO Q8H PRN nausea and 04/02/24 tablet vomiting #20 tabs ondansetron 4 mg disintegrating 4 mg PO Q6-8H PRN nausea and 05/13/24 tablet vomiting #20 tabs famotidine 10 mg tablet 10 mg PO DAILY 7 days #7 tabs 07/11/24 omeprazole 40 mg capsule,delayed 40 mg PO DAILY 1 week #7 caps 07/11/24 release sucralfate 100 mg/mL oral 5 ml PO QID #414 mL 07/11/24 suspension (Carafate) dicyclomine 10 mg capsule 10 mg PO QID PRN abdominal pain 08/05/24 #14 caps sucralfate 100 mg/mL oral 10 ml PO .before meals #420 mL 08/08/24 suspension (Carafate) metoclopramide HCl 10 mg tablet 10 mg PO Q6H PRN nausea and 09/25/24 (Reglan) vomiting #20 tabs sucralfate 100 mg/mL oral 10 ml PO BID 7 days #140 mL 09/25/24 suspension (Carafate) sucralfate 100 mg/mL oral 10 ml PO BID 4 weeks #560 mL 10/15/24 suspension (Carafate) amoxicillin 500 mg tablet 1,000 mg (2 x 500 mg) PO TID 14 11/04/24 days #84 tabs clarithromycin 500 mg tablet 500 mg PO Q12H 14 days #28 tabs 11/04/24 sucralfate 1 gram tablet 1 g PO TID 14 days #42 tabs 11/04/24 sucralfate 1 gram tablet 1 g PO TID #60 tabs 11/26/24 prochlorperazine maleate 10 mg 10 mg PO Q6H PRN nausea and 02/09/25 tablet vomiting #14 tabs erythromycin 5 mg/gram (0.5 %) eye 0.5 inch ophthalmic (eye) TID #3.5 05/09/25 ointment grams Allergies Allergy/AdvReac Type Severity Reaction Status Date / Time No Known Allergies Allergy Verified 05/08/25 23:34 Review of Systems Review of Systems: Constitutional : No Weight loss, No Fever, No Chills, No Night Sweats, No Fatigue, No Malaise ENT/Mouth : No Hearing loss, No Ear Pain, No Nasal Congestion, No Sinus Pain, No Hoarseness, No sore throat, No Rhinorrhea, No Swallowing Difficulty Eyes: Complaining of left eye erythema, discharge, tearing, foreign body sensation but no known foreign body in the eye. Cardiovascular : No Chest Pain, No SOB, No Dyspnea on Exertion, No Orthopnea, No Edema, No Palpitations Respiratory : No Cough, No Sputum, No Wheezing, No Smoke Exposure, No Dyspnea Gastrointestinal : No Nausea, No Vomiting, No Diarrhea, No Constipation, No abdominal Pain, No Hematochezia, No Melena Genitourinary : no irregular bleeding, No Dysuria, No Urinary Frequency, No Hematuria, No Urinary Incontinence, No Urgency, No Flank Pain, No Urinary Flow Changes, No Hesitancy Musculoskeletal : No joint pain, No Myalgias, No Joint Swelling Skin : No Skin Lesions, No rash Neuro : No Weakness, No Numbness, No Paresthesias, No Loss of Consciousness, No Dizziness, No Headache Psych : No Anxiety/Panic, No Depression, No SI/HI/AH/VH, No Social Issues, Heme/Lymph: No Bruising, No Bleeding,No Lymphadenopathy Endocrine : No Polyuria, No Polydipsia, No Temperature Intolerance [facility] Past Medical History Medical History No pertinent past medical history Social History Social History Unable to assess alcohol history related to: Unknown Alcohol intake: former Patient Tobacco Use Status: Never used Tobacco Substance Use Type: Marijuana Advance Directives: No Advance Directives Information Provided: Yes Physical Exam Exam: Exam: Appearance: Alert. Oriented X3. No acute distress. Eyes: Pupils equal, round and reactive to light. Patient will acuity left eye: 20/30. Eye pressure on the right: 13.5, pressure on the left: 15.5 patient's left eye is erythematous, there some gooey discharge, exam with fluorescein stain and Wood's phlegm, negative for lacerations, abrasions, negative Silvia sign ENT: Pharynx normal. Neck: Normal inspection. Neck supple. No lymph nodes noted. No crepitus CVS: Normal heart rate and rhythm. Pulses normal. Normal S1 and S2 Respiratory: No respiratory distress. Breath sounds normal. No Wheezing. No rales Abdomen: Soft and nontender. No rigidity. No distention. Skin: Skin warm and dry. Normal skin color. Normal skin turgor. Extremities: No lower extremity edema. No Lacerations. No Rash Neuro: Oriented X 3. No motor deficit. No sensory deficit. Moving all extremities. No slurred speech. CN 2 through 12 grossly intact Psych: calm, cooperative, normal affect Vital Signs: Vital Signs: Last Vital Signs Temp 97.3 F 05/08/25 23:30 Pulse 75 05/08/25 23:30 Resp 18 05/08/25 23:30 BP 147/74 H 05/08/25 23:30 Pulse Ox 98 05/08/25 23:30 O2 Del Method Room Air 05/08/25 23:30 BMI result Body Mass Index 48.2 Medical Decision Making Medical Decision Making MDM Narrative: I discussed the physical exam with the patient, patient likely has conjunctivitis. Patient states it has been gradually been getting worse over last week. Therefore, we will go ahead and treat with antibiotics, erythromycin ointment. Patient states that he does not wear contact lens Discharge Plan Discharge Clinical Impression: Bacterial conjunctivitis Patient Disposition: Home, Self-Care Instructions: Conjunctivitis (ED) Additional Instructions: Please follow-up with your primary care physician tomorrow. If you have any worsening or new symptoms, please return to the emergency room or call 911 Prescriptions: New erythromycin 5 mg/gram (0.5 %) ointment 0.5 inch ophthalmic (eye) TID Qty: 3.5 0RF No Action ondansetron 4 mg tablet,disintegrating 4 mg PO Q6-8H PRN (Reason: nausea and vomiting) Qty: 20 0RF omeprazole 40 mg capsule,delayed release(DR/EC) 40 mg PO DAILY 7 Days Qty: 7 0RF famotidine 10 mg tablet 10 mg PO DAILY 7 Days Qty: 7 0RF sucralfate [Carafate] 100 mg/mL suspension 5 ml PO QID Qty: 414 0RF Rx Instructions: swish in mouth and swallow; use after food/drink sucralfate 1 gram tablet 1 g PO TID Qty: 60 0RF prochlorperazine maleate 10 mg tablet 10 mg PO Q6H PRN (Reason: nausea and vomiting) Qty: 14 0RF ondansetron 4 mg tablet,disintegrating 4 mg PO Q8H PRN (Reason: nausea and vomiting) Qty: 20 0RF omeprazole 20 mg capsule,delayed release(DR/EC) 20 mg PO DAILY Qty: 14 0RF dicyclomine 10 mg capsule 10 mg PO QID PRN (Reason: abdominal pain) Qty: 14 0RF sucralfate [Carafate] 100 mg/mL suspension 10 ml PO .before meals Qty: 420 0RF sucralfate [Carafate] 100 mg/mL suspension 10 ml PO BID 7 Days Qty: 140 0RF metoclopramide HCl [Reglan] 10 mg tablet 10 mg PO Q6H PRN (Reason: nausea and vomiting) Qty: 20 0RF sucralfate [Carafate] 100 mg/mL suspension 10 ml PO BID 28 Days Qty: 560 0RF Rx Instructions: before meals clarithromycin 500 mg tablet 500 mg PO Q12H 14 Days Qty: 28 0RF amoxicillin 500 mg tablet 1,000 mg PO TID 14 Days Qty: 84 0RF sucralfate 1 gram tablet 1 g PO TID 14 Days Qty: 42 0RF Print Language: Bulgarian
[2025-05-09 02:36] VITALS: BP 132/75; PULSE 71; RESP 18; TEMP 36.9; O2SAT 97
[2025-05-09 02:45] VITALS: BP 132/75; PULSE 71; RESP 18; TEMP 36.9; O2SAT 97
== END 2025-05-09 02:46 | disposition home or self-care (01) ==
PROVIDERS: Emergency Provider Emergency Medicine
DX: H10.89 Other conjunctivitis (principal)
CPT/HCPCS: 99283

== ENCOUNTER 2025-07-02 18:10 | Emergency (ER) | payer OTHER, SELFPAY ==
[2025-07-02 18:26] VITALS: BP 134/75; PULSE 68; RESP 16; TEMP 36.6; O2SAT 98; BMI 48.3
--- NOTE | 2025-07-02 18:31 | ED.GENADULT ---
HPI - General Adult General Chief complaint: GI Bleed Stated complaint: bleeding from rectum Time Seen by Provider: 07/02/25 18:59 Source: patient, RN notes reviewed and old records reviewed Mode of arrival: ambulatory Limitations: no limitations History of Present Illness ED Provider: SONI Allen HPI narrative: 25-year-old male with chronic abdominal pain, nausea and vomiting presents to the ED due to rectal bleeding. Patient states approximately 2 hours prior to arrival while he was at work after having a bowel movement he wiped and noticed some bright red blood on the toilet tissue. Patient states he has had some gastrointestinal issues over the past year, and has seen GI with endoscopy and colonoscopy performed in September of 2024 with normal findings (although he cannot remember who he sees for GI) Patient states he is on omeprazole daily and his GI issues have improved. Denies chest pain, SOB, lightheadedness, dizziness, weakness, abdominal pain, nausea, vomiting MD complaint: rectal bleeding Related Data Previous Rx's ?Medication ?Instructions ?Recorded omeprazole 20 mg capsule,delayed 20 mg PO DAILY #14 caps 04/02/24 release ondansetron 4 mg disintegrating 4 mg PO Q8H PRN nausea and 04/02/24 tablet vomiting #20 tabs ondansetron 4 mg disintegrating 4 mg PO Q6-8H PRN nausea and 05/13/24 tablet vomiting #20 tabs famotidine 10 mg tablet 10 mg PO DAILY 7 days #7 tabs 07/11/24 omeprazole 40 mg capsule,delayed 40 mg PO DAILY 1 week #7 caps 07/11/24 release sucralfate 100 mg/mL oral 5 ml PO QID #414 mL 07/11/24 suspension (Carafate) dicyclomine 10 mg capsule 10 mg PO QID PRN abdominal pain 08/05/24 #14 caps sucralfate 100 mg/mL oral 10 ml PO .before meals #420 mL 08/08/24 suspension (Carafate) metoclopramide HCl 10 mg tablet 10 mg PO Q6H PRN nausea and 09/25/24 (Reglan) vomiting #20 tabs sucralfate 100 mg/mL oral 10 ml PO BID 7 days #140 mL 09/25/24 suspension (Carafate) sucralfate 100 mg/mL oral 10 ml PO BID 4 weeks #560 mL 10/15/24 suspension (Carafate) amoxicillin 500 mg tablet 1,000 mg (2 x 500 mg) PO TID 14 11/04/24 days #84 tabs clarithromycin 500 mg tablet 500 mg PO Q12H 14 days #28 tabs 11/04/24 sucralfate 1 gram tablet 1 g PO TID 14 days #42 tabs 11/04/24 sucralfate 1 gram tablet 1 g PO TID #60 tabs 11/26/24 prochlorperazine maleate 10 mg 10 mg PO Q6H PRN nausea and 02/09/25 tablet vomiting #14 tabs erythromycin 5 mg/gram (0.5 %) eye 0.5 inch ophthalmic (eye) TID #3.5 05/09/25 ointment grams Allergies Allergy/AdvReac Type Severity Reaction Status Date / Time No Known Allergies Allergy Verified 07/02/25 18:27 Review of Systems Review of Systems: CONST: Negative for fever, body aches and chills. HENT: Negative for neck pain/stiffness, headache, congestion, sore throat, swelling. EYES: Negative for discharge/pain or vision changes. RESP: Negative for cough/hemoptysis and shortness of breath. CV: Negative chest pain, difficulty breathing, palpitations. ABD: Negative pain, nausea, vomiting. : Negative increase frequency, dysuria, blood in urine or stool. Blood on tissue paper after bowel movement. MUSC: Negative for muscle aches, edema. SKIN: Negative rash, lesions/sores. NEURO: Negative headache, dizziness, weakness. Yes all other systems are reviewed and are negative PMFSH Past Medical History Attestation statement: The following information was validated with the patient. Source: old records reviewed and nursing notes reviewed Medical History No pertinent past medical history Social History Social History Alcohol intake: current Alcohol intake frequency: a few times a month Alcohol type: beer and hard liquor Patient Tobacco Use Status: Never used Tobacco Smoked in Last 30 Days: No Use of substances other than those prescribed or required for medical reasons: No Substance Use Type: Marijuana Advance Directives: No Advance Directives Information Provided: No Physical Exam ED Vital Signs: Vital Signs - 24 hr 07/02/25 18:26 07/02/25 18:47 07/02/25 20:10 Temperature 97.8 F 98.2 F Pulse Rate 68 60 Respiratory Rate 16 65 H 14 Blood Pressure 134/75 136/92 H 119/67 Pulse Oximetry 98 98 98 Oxygen Delivery Method Room Air Room Air Room Air 07/02/25 22:14 07/02/25 22:34 Temperature 98.5 F 98.5 F Pulse Rate 66 66 Respiratory Rate 19 18 Blood Pressure 124/67 124/67 Pulse Oximetry 98 99 Oxygen Delivery Method Room Air Room Air BMI result Body Mass Index 48.3 GENERAL APPEARANCE: ?AxOx4, generally well-appearing, no acute distress. HEENT: ?NC, AT. MMM. EOMI, clear conjunctiva, oropharynx clear. NECK: ?Supple without lymphadenopathy.? No stiffness or restricted ROM. HEART:? Normal rate and regular rhythm, normal S1/S1, no m/r/g LUNGS:? CTAB, moving air well. No crackles or wheezes are heard. ABDOMEN: ?Soft, nontender, nondistended with good bowel sounds heard. : 2 small non thrombosed external hemorrhoids seen, no active bleeding, no rectal masses palpated. BACK: No CVAT, no obvious deformity. EXTREMITIES: ?Without cyanosis, clubbing or edema. NEUROLOGICAL: ?Grossly nonfocal. Alert and oriented, moving all 4 extremities. Observed to ambulate with normal gait. Skin: ?Warm and dry without any rash. Course Course Course Narrative: RME: 25-year-old male presents to ED for nidia red rectal bleeding that started 2 hours ago. Patient denies any abdominal pain or rectal pain. Patient states possibility history of hemorrhoids. Labs ordered Medical Decision Making Medical Decision Making MDM Narrative: 25-year-old male with chronic abdominal pain, nausea and vomiting presents to the ED due to rectal bleeding. Patient states approximately 2 hours prior to arrival while he was at work after having a bowel movement he wiped and noticed some bright red blood on the toilet tissue. Patient states he has had some gastrointestinal issues over the past year, and has seen GI with endoscopy and colonoscopy performed in September of 2024 with normal findings (although he cannot remember who he sees for GI) Patient states he is on omeprazole daily and his GI issues have improved. Last bowel movement prior to arrival without significant straining, is passing flatus. VS on initial observation-BP 119/67, pulse rate of 60, respiratory rate of 14, afebrile with oral temp of 98.2?, O2 saturation 98% on room air. On physical exam small non thrombosed external hemorrhoids seen, no active bleeding, no rectal masses palpated. Labs without leukocytosis/leukopenia, no evidence of anemia, H&H stable, ALT elevated at 55 however this looks to be around patient's baseline, no electrolyte abnormalities. Occult stool blood positive. Patient is hemodynamically stable, and normotensive, without abdominal pain, nausea or vomiting. Patient with small amount of bright red blood on toilet tissue when wiping after bowel movement today, patient did not notice blood in the toilet bowel. Patient having normal bowel movements without significant straining, is passing flatus. Patient without evidence of anemia on labs today, no increase in BUN, less likely GI bleed. Patient has been evaluated by GI this past year with normal findings on endoscopy and colonoscopy. On physical exam 2 small non thrombosed hemorrhoids seen which are most likely causing rectal bleeding. I counseled patient on sitz baths. I counseled patient to follow up with his GI doctors, however if he cannot remember who he saw or is unable to see them, I did provide referral for [facility]. I counseled patient to follow up with his primary care doctor and on strict return precautions. Patient feels well enough to go home for self care. Patient is in agreement with the plan. Differential Diagnosis Differential Diagnoses: The differential diagnosis associated with the presentation includes GI bleed Constipation Thrombosed hemorrhoid Hemorrhoids Admission/Observation Consideration of admission/observation: Escalation of care including admission/observation considered Lab Data MDM Lab Attestation statement: I reviewed the patient's lab results. 07/02/25 18:50 07/02/25 18:50 Labs: Lab Results 07/02/25 07/02/25 Range/Units 18:50 20:16 WBC 8.1 (4.8-10.8) X10*3/uL RBC 5.31 (4.60-5.80) X10*6/uL Hgb 14.8 (14.0-18.0) g/dl Hct 44.7 (42.0-52.0) % MCV 84.2 (80.0-98.0) fL MCH 27.9 (27.0-33.0) pg MCHC 33.1 (31.0-36.0) g/dl RDW 11.9 (11.0-16.0) % Plt Count 296 (160-400) X10*3/uL MPV 9.3 L (9.4-12.4) fL Immature Gran % (Auto) 0.2 (0.0-0.4) % Neut % (Auto) 69.1 (45-73) % Lymph % (Auto) 22.9 (20-40) % [place] % (Auto) 6.2 (2-11) % Eos % (Auto) 1.4 (0-4) % Baso % (Auto) 0.2 (0-2) % Lymph # (Auto) 1.9 (1.2-4.9) X10*3/uL [place] # (Auto) 0.5 (0.1-1.2) X10*3/uL Eos # (Auto) 0.1 (0.0-0.4) X10*3/uL Baso # (Auto) 0.0 (0.0-0.2) X10*3/uL Abs Immat Gran (auto) 0.02 (0.00-0.03) X10*3/uL Absolute Neuts (auto) 5.6 (2.0-8.3) x10*3/uL Absolute Nucleated RBC 0.000 (0.0-0.012) X10*3/uL Nucleated RBC % (auto) 0.0 (0.0-0.2) /100WBC Sodium 142 (135-145) mmol/L Potassium 4.1 (3.3-5.1) mmol/L Chloride 109 H (96-108) mmol/L Carbon Dioxide 26 (22-29) mmol/L Anion Gap 11 L (12-20) BUN 12 (9-16) mg/dL Creatinine 0.91 (0.5-1.4) mg/dL Estim Creat Clear Calc 210.0 Estimated GFR > 60 Random Glucose 84 (60-115) mg/dL Calcium 9.0 (8.4-10.2) mg/dL Total Bilirubin 0.4 (0.0-1.0) mg/dL AST 32 (5-37) U/L ALT 55 H (0-40) U/L Alkaline Phosphatase 77 (39-117) U/L Total Protein 6.9 (6.5-8.0) g/dL Albumin 4.4 (3.5-5.0) g/dL Stool Occult Blood POSITIVE (NEGATIVE) External Record Review External record reviewed: Inpatient record, Office record and Outpatient record Chronic Conditions Patient?s care impacted by: Other (Chronic GI issues) Discharge Plan Discharge Clinical Impression: Hemorrhoids Patient Disposition: Home, Self-Care Instructions: Sitz Bath (DC) Additional Instructions: You were evaluated in the ED today due to bleeding from the rectum. Your lab work was very reassuring today as there was no evidence of anemia showing emergent bleed. Your physical exam revealed 2 small external hemorrhoids that is most likely causing bleeding on the tissue after your bowel movement. Please follow up with your primary care doctor and the GI doctors that you have seen for your endoscopy and colonoscopy. If you are unable to remember who you saw, or can not follow up with these providers, I have placed referral to [facility] doctors for you. Please call their office as they will not call you. Please return to the emergency department if you experience fevers over 100.4?, increased bleeding, blood in the toilet bowl after a bowel movement, dark or tarry stool, abdominal pain, vomiting, nausea, or any new/worsening/concerning symptoms. Prescriptions: No Action ondansetron 4 mg tablet,disintegrating 4 mg PO Q6-8H PRN (Reason: nausea and vomiting) Qty: 20 0RF omeprazole 40 mg capsule,delayed release(DR/EC) 40 mg PO DAILY 7 Days Qty: 7 0RF famotidine 10 mg tablet 10 mg PO DAILY 7 Days Qty: 7 0RF sucralfate [Carafate] 100 mg/mL suspension 5 ml PO QID Qty: 414 0RF Rx Instructions: swish in mouth and swallow; use after food/drink sucralfate 1 gram tablet 1 g PO TID Qty: 60 0RF prochlorperazine maleate 10 mg tablet 10 mg PO Q6H PRN (Reason: nausea and vomiting) Qty: 14 0RF ondansetron 4 mg tablet,disintegrating 4 mg PO Q8H PRN (Reason: nausea and vomiting) Qty: 20 0RF omeprazole 20 mg capsule,delayed release(DR/EC) 20 mg PO DAILY Qty: 14 0RF dicyclomine 10 mg capsule 10 mg PO QID PRN (Reason: abdominal pain) Qty: 14 0RF sucralfate [Carafate] 100 mg/mL suspension 10 ml PO .before meals Qty: 420 0RF sucralfate [Carafate] 100 mg/mL suspension 10 ml PO BID 7 Days Qty: 140 0RF metoclopramide HCl [Reglan] 10 mg tablet 10 mg PO Q6H PRN (Reason: nausea and vomiting) Qty: 20 0RF sucralfate [Carafate] 100 mg/mL suspension 10 ml PO BID 28 Days Qty: 560 0RF Rx Instructions: before meals clarithromycin 500 mg tablet 500 mg PO Q12H 14 Days Qty: 28 0RF amoxicillin 500 mg tablet 1,000 mg PO TID 14 Days Qty: 84 0RF sucralfate 1 gram tablet 1 g PO TID 14 Days Qty: 42 0RF erythromycin 5 mg/gram (0.5 %) ointment 0.5 inch ophthalmic (eye) TID Qty: 3.5 0RF Stand Alone Forms: Work/School Release Interventions: ED Discharge Assessment Last Done: 07/02/25 22:34 Discharge Date/Time: 07/02/25 22:34 Print Language: Paraguayan
[2025-07-02 18:47] VITALS: BP 136/92; RESP 65; TEMP 36.8; O2SAT 98
[2025-07-02 18:57] LABS: Hematocrit 44.7 % (42.0-52.0); Hemoglobin 14.8 g/dl (14.0-18.0); Imm Gran Abs Auto 0.02 X10*3/uL (0.00-0.03); Imm Gran Pct Auto 0.2 % (0.0-0.4); Lymphocytes Absolute Auto 1.9 X10*3/uL (1.2-4.9); MANUAL DIFF FLAG NO; Mean Corpuscular HGB Conc 33.1 g/dl (31.0-36.0); Mean Corpuscular Hemoglobin 27.9 pg (27.0-33.0); Mean Corpuscular Volume 84.2 fL (80.0-98.0); NRBC Abs Auto 0.000 X10*3/uL (0.0-0.012); NRBC Pct Auto 0.0 /100WBC (0.0-0.2); Platelet Count 296 X10*3/uL (160-400); Red Blood Count 5.31 X10*6/uL (4.60-5.80); White Blood Count 8.1 X10*3/uL (4.8-10.8)
[2025-07-02 19:12] LABS: Alanine Aminotransferase 55 U/L (0-40); Albumin Level 4.4 g/dL (3.5-5.0); Alkaline Phosphatase 77 U/L (39-117); Anion Gap 11 (12-20); Aspartate Amino Transferase 32 U/L (5-37); Blood Urea Nitrogen 12 mg/dL (9-16); Calcium 9.0 mg/dL (8.4-10.2); Carbon Dioxide 26 mmol/L (22-29); Chloride 109 mmol/L (96-108); Creatinine Clr Calc Pharmacy 210.0; Estimated Glomerular Filt Rate > 60; Potassium 4.1 mmol/L (3.3-5.1); Sodium 142 mmol/L (135-145); Total Protein 6.9 g/dL (6.5-8.0)
[2025-07-02 20:10] VITALS: BP 119/67; PULSE 60; RESP 14; O2SAT 98
[2025-07-02 20:31] LABS: OBS Int Ctl Valid YES; OBS1 POSITIVE (NEGATIVE)
--- OUTSIDE RECORDS SUMMARY | 2025-07-02 20:39 | XMS_ITS | Data Portability ---
Author Organization [facility] [id number] Address [address] [place] [address] Assessment No assessment recorded. Plan of Treatment Reminders Order Date Submit Date Provider Last Modified By Organization Details Last Modified Time Details Appointments None recorded. Lab None recorded. Referral None recorded. Procedures None recorded. Surgeries None recorded. Imaging XR, foot, 3 or more view 2022 023 [facility], [address] [place], [address], 15:59:16 XR, ankle, 3 or more view 2022 023 [facility], [address] [place], [address], 15:56:20 Medication Orders ibuprofen 600 mg tablet 2022 023 [id number], [address] [place], [address], 15:39:36 Patient TargetsNo targets recorded. Patient Instructions Encounter Date Encounter Id Patient Instructions Last Modified By Organization Details Last Modified Time 03/29/2023 [id number] learning about rice (rest, ice, compression, and elevation) [email or web address] Not available 03/29/2023 15:04:44 Based on your [...] 5. Calf Swelling Thank you for using [employer], please contact our office if you have any questions or concerns. [email or web address] Not available 03/29/2023 15:04:57 Reason for Referral None Reported. Results Created Date Observation Date Name Description Value Unit Range Abnormal Flag Note LastModifiedBy Organization Detail LastModifiedTime 03/29/2003/29/2023 XR, ankle , 3 or more view No observ ation record ed. [email or web address] [facility] [address] [place], [address], 03/30/2023 13:42:24 03/29/2003/29/2023 XR, foot, 3 or more view No observ ation record ed. [email or web address] [facility] [address] [place], [address], 03/30/2023 13:42:25 Result Notes None recorded. Problems [...] Pulse oximetry Heart rate Body temperature Systolic And Diastolic Provider Name and Address Organization Details Last Updated DateTime 3 187.96 cm 99 % 46.9 kg/m2 333209. 22 g 4 20 /min 99 % 99 % 67 /min 98.2 [degF] 129/93 mm[Hg] Magdalena CHINO - [facility] 14:17:08 Social History Question Answer Notes LastModified by Taplet Details LastModified Time Tobacco Smoking Status Never Smoker LULÚ Alberto [facility] 03/29/2023 14:15:35 Which Illicit Or Recreational Drugs Have You Used? Marijuana Information not available 03/29/2023 Have You Had Direct Contact, Or Contact During Intimacy, With Monkeypox Rash, Scabs, Or Body Fluids From A Person With Monkeypox? No Information not available 03/29/2023 Have You Recently Traveled Abroad? No Information not available 03/29/2023 Sex: Unknown Functional Status Question Answer Note LastModified by Taplet Details LastModified Time Do you use any [...] Diagnosis SNOMED-CT Code Diagnosis ICD10 Code Diagnosis IMO Codes Diagnosis Note [id number] _[facility] [address] [place] [address] 07/26/2022 09:40:15 07/26/2022 12:38:11 [id number] LULÚ SALAS [address] [place] [address] 03/29/2023 13:29:23 03/29/2023 15:44:03 Sprain of right ankle [id number] S93.401A Health Concerns Section Related Observation LastModified by Organization Detai ls LastModified Time None Recorded Concern Status LastModified by Organization Details LastModified Time None Recorded Advance Directives Directive None Recorded Payers Insurance Date Sequence Insurance Name Policy Number Policy Sanders Covered Member ID Sanders Member ID Guarantor Name 03/29/2023 1 [facility] [employer] [facility] [employer] (MEDICAID HMO) [id number] Mahesh Lepe [id number] Mahesh Lepe 03/29/2023 1 [facility] (MEDICAID HMO) [id number] Mahesh Lepe [id number] Mahesh Lepe 03/29/2023 1 [place] [facility] Mahesh Lepe [id number] Mahesh Lepe 03/29/2023 1 [facility] [id number] Mahesh Lepe [id number] Mahesh Lepe Notes Date Note Type Note Provider Name and Address Organization Details Recorded Time 03/29/2023 text/html Foot/Ankle UCReported by [email or web address] y.o male pt presents with right ankle pain with swelling 2/2 rolling it while coming down the stairs. Pain is located along lateral malleolus and on dorsal aspect of foot. Pt is ambulating with mild limp LULÚ SALAS [address] [place], [address], [place] - [facility] 03/29/2023 16:10:37
[2025-07-02 22:14] VITALS: BP 124/67; PULSE 66; RESP 19; TEMP 36.9; O2SAT 98
[2025-07-02 22:34] VITALS: BP 124/67; PULSE 66; RESP 18; TEMP 36.9; O2SAT 99
== END 2025-07-02 22:34 | disposition home or self-care (01) ==
PROVIDERS: Physician Assistant; Emergency Provider Emergency Medicine; PCP Nurse Practitioner
DX: K64.4 Residual hemorrhoidal skin tags (principal); R10.9 Unspecified abdominal pain; Z87.19 Personal history of other diseases of the digestive system; Z79.899 Other long term (current) drug therapy
CPT/HCPCS: 36415; 80053; 82272; 85025; 99283; 99284